=== PATIENT | female | born 1965 | race Caucasian/White ===

== ENCOUNTER 2019-11-08 08:05 | Emergency (ER) | payer OTHER ==
--- OUTSIDE RECORDS SUMMARY | 2019-11-08 08:21 | XMS REPORT ---
:1965 Author Organization eClinicalWorks Care Team Providers Name Role Phone Soheila Ching Provider Role Unavailable Allergies No Known Allergies Problems Problem Type Condition Code Onset Dates Condition Status Problem Acute cystitis with hematuria N30.01 Active Medications No Known Medications Results No Known Results Summary Purpose eClinicalWorks Submission
--- OUTSIDE RECORDS SUMMARY | 2019-11-08 08:21 | XMS REPORT ---
:1965 Author Organization e[employer]Works Care Team Providers Name Role Phone Soheila Ching Provider Role Unavailable Allergies, Adverse Reactions, Alerts Substance Reaction Event Type N.K.D.A. Info Not Available Non Drug Allergy Problems Problem Type Condition Code Onset Dates Condition Status Assessment Acute cystitis with hematuria N30.01 Active Problem Acute cystitis with hematuria N30.01 Active Medications Medication Code Code Instructions Start End Status Dosage System Date Date Metoprolol [facility] 76343932133 50 MG Orally Active 1 capsule Succinate Once a day Vitamin D2 [facility] 85087416873 50 MCG (2000 Active 1 tablet UT) Orally Once a day Xarelto [facility] 01732694517 20 MG Orally Active 1 tablet Once a day with food Liothyronine [facility] 34268160737 25 MCG Orally Active 1 tablet Sodium Once a day on an empty stomach Calcium [facility] [address]-85 150 MG Orally Active as directed Synthroid [facility] 78835156867 175 MCG Orally Active 1 tablet Once a day in the morning on an empty stomach Flecainide [facility] 07764316403 100 MG Orally Active as Acetate directed Cipro [facility] 71876425958 500 MG Orally Oct 04, Oct 09, Active 1 tablet every 12 hrs 2019 2019 Results No Known Results Summary Purpose eClinicalWorks Submission
--- OUTSIDE RECORDS SUMMARY | 2019-11-08 08:21 | XMS REPORT ---
[...] Start End Status Dosage System Date Date Synthroid [facility] 45562285868 175 MCG Orally Active 1 tablet Once a day in the morning on an empty stomach Cipro [facility] 40692376520 500 MG Orally Oct 04, Oct 09, Active 1 tablet every 12 hrs 2019 2019 Calcium [facility] [address]-01 150 MG Orally Active as directed Liothyronine [facility] 76574968959 25 MCG Orally Active 1 tablet Sodium Once a day on an empty stomach Flecainide [facility] 71566102071 100 MG Orally Active as Acetate directed Metoprolol [facility] 24452549467 50 MG Orally Active 1 capsule Succinate Once a day Vitamin D2 [facility] 60470138938 50 MCG (1999 Active 1 tablet UT) Orally Once a day Erythromycin [place] 04765089394 500 MG Orally Oct 09October Active as BID 2019 11, directed 2019 Xarelto ND 13585423345 20 MG Orally Active 1 tablet Once a day with food Results No Known Results Summary Purpose eClinicalWorks Submission
--- OUTSIDE RECORDS SUMMARY | 2019-11-08 08:21 | XMS REPORT ---
:1965 Author Organization eClinicalWorks Care Team Providers Name Role Phone Soheila Ching Provider Role Unavailable Allergies, Adverse Reactions, Alerts Substance Reaction Event Type N.K.D.A. 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 Active classified elsewhere Assessment Acute cystitis with hematuria N30.01 Active Assessment UTI (lower urinary tract infection) N39.0 Active Medications Medication Code Code Instructions Start End Status Dosage System Date Date Liothyronine [facility] 63221429694 25 MCG Orally Active 1 tablet Sodium Once a day on an empty stomach Xarelto [facility] 02944414655 20 MG Orally Active 1 tablet Once a day with food Vitamin D2 [facility] 46045460732 50 MCG (1999 Active 1 tablet UT) Orally Once a day Metoprolol [facility] 36077534269 50 MG Orally Active 1 capsule Succinate Once a day Flecainide [facility] 29546601333 100 MG Orally Active as Acetate directed Calcium [facility] [address]-71 150 MG Orally Active as directed Oxybutynin [facility] 07856809076 5 MG Orally OctoberDecember 26, Active 1 tablet Chloride Twice a day 2019 Synthroid [facility] 79291679723 175 MCG Orally Active 1 tablet Once a day in the morning on an empty stomach Results No Known Results Summary Purpose eClinicalWorks Submission
--- OUTSIDE RECORDS SUMMARY | 2019-11-08 08:21 | XMS REPORT ---
:1965 [facility] Address [address] [place] [address] Dr. Esquivel [address] [place] [id number] Care Team Providers Name Role Phone Unavailable Unavailable Unavailable Payers Payer Name Policy Type Policy Number Effective Date Expiration Date Problems This patient has no known problems. Allergies, Adverse Reactions, Alerts This patient has no known allergies or adverse reactions. Medications This patient has no known medications. Encounters Start End Encounter Admission Attending Care Care Encounter Date/Time Date/Time Type Type Clinicians Facility Department ID 2019-09-18 Outpatient [id number] 07:57:16 2019-02-11 2019-02-11 Outpatient [id number] 12:40:00 12:40:00 2018-07-18 2018-07-18 Outpatient [id number] 14:13:00 14:13:00
[2019-11-08 09:25] LABS: Basophils % 0.9 % (0-1.3); Hematocrit 38.1 % (36.0-45.0); Lymphocytes % 40.1 % (15.3-44.8); MPV 9.2 fL (7.6-11.3); RBC Red Blood Cell Count 4.58 M/uL (3.86-4.86)
[2019-11-08 09:33] LABS: Protime INR 1.65
[2019-11-08 09:41] LABS: Bilirubin Direct 0.1 mg/dL (0-0.2); Bilirubin Total 0.4 mg/dL (0.2-1.0); Potassium 3.8 mmol/L (3.5-5.1); Protein, Total 7.7 g/dL (6.4-8.2)
[2019-11-08 09:48] LABS: Urine Appearance CLOUDY; Urine Bilirubin NEGATIVE (NEG); Urine Blood 3+ (NEG); Urine Color YELLOW; Urine Glucose NEGATIVE (NEG); Urine Protein 2+ (NEG); Urine Urobilinogen 0.2 mg/dL (0.2-1.0)
[2019-11-08 09:54] LABS: Urine Bacteria <20 /HPF (<20); Urine Culture Reflex Order NOT NEEDED; Urine RBC TNTC /HPF (NONE SEEN)
--- NOTE | 2019-11-08 10:01 | RAD REPORT ---
EXAM DESCRIPTION: CTAbdomen Pelvis W Contrast - 11/08/2019 9:52 am CLINICAL HISTORY: Abdominal pain. ABD PAIN COMPARISON: Abdomen Pelvis W Contrast dated 03/05/2019 TECHNIQUE: Biphasic CT imaging of the abdomen and pelvis was performed with 100 ml non-ionic IV cont rast. All CT scans are performed using dose optimization technique as appropriate and may include automated exposure control or mA/KV adjustment according to patient size. FINDINGS: The lung bases are clear.Cholecystectomy clips. Postsurgical changes are present about the stomach. The liver, spleen, pancreas, adrenal glands and right kidney are within normal limits. Mild right hyd ronephrosis and hydroureter is present caused by an 8 mm calculus in the mid left ureter (590 HU). 10 mm cyst is present upper pole left kidney. No bowel obstruction, free air, free fluid or abscess. Appendectomy. No evidence of significant lym phadenopathy. No suspicious bony findings. IMPRESSION: 8 mm calculus mid left ureter resulting in mild left hydronephrosis.
[2019-11-08] MEDS ORDERED: TAMSULOSIN 0.4 MG SR CAP ONE (10:33)
[2019-11-08] MEDS ORDERED: CEFTRIAXONE/SWI 1gm 1 GM/10 ML SYR ONE (10:34)
[2019-11-08] MEDS ORDERED: NA CHLORIDE 0.9% 1,000 ML ONE (10:34)
[2019-11-08] MEDS ORDERED: MAGNESIUM SULFATE 1 gm IVPB 1 GM/100 ML BAG IV ONE (10:34)
[2019-11-08] MEDS ORDERED: KETOROLAC 30 MG/ML INJ ONE (10:34)
--- NOTE | 2019-11-08 11:02 | ER ---
Nurse's Notes [facility] Name: Annika Thompson Age: 54 yrs Sex: Female : 1965 Arrival Date: 11/08/2019 Time: 08:10 Bed 13 Private MD: Diagnosis: Calculus of ureter-left Presentation: 11/07 08:18 Chief complaint: Patient states: abd pain and back pain that has been ongoing since ss July. Pt reports that since the beginning of this week, she is having diarrhea and increased pain after eating. Coronavirus screen: Patient denies fever greater than 100.4F, cough, shortness of breath, or difficulty breathing. Proceed with normal triage process. Ebola Screen: Patient denies exposure to infectious person. Patient denies travel to an Ebola-affected area in the 21 days before illness onset. Initial Sepsis Screen: Does the patient meet any 2 criteria? No. Patient's initial sepsis screen is negative. Does the patient have a suspected source of infection? No. Patient's initial sepsis screen is negative. Risk Assessment: Do you want to hurt yourself or someone else? Patient reports no desire to harm self or others. 08:18 Method Of Arrival: Ambulatory ss 08:18 Acuity: JUSTINE 3 ss Historical: - Allergies: 08:20 Sulfa (Sulfonamide Antibiotics); ss - PMHx: 08:20 Atrial Fib; Hypertension; Tachycardia; Thyroid problem; ss - PSHx: 08:20 Neck fusion; Hysterectomy; Cholecystectomy; Appendectomy; Thyroidectomy; ss - Immunization history:: Adult Immunizations up to date. - Social history:: Smoking status: Patient denies any tobacco usage or history of. Screenin:19 Abuse screen: Denies threats or abuse. Denies injuries from another. Nutritional ph screening: No deficits noted. Tuberculosis screening: No symptoms or risk factors identified. Fall Risk None identified. Assessment: 09:00 General: Appears in no apparent distress. comfortable, well groomed, Behavior is calm, ph cooperative, appropriate for age, Denies fever. Pain: Complains of pain in anterior aspect of left lateral abdomen, left upper quadrant and left lower quadrant. Neuro: Level of Consciousness is awake, alert, obeys commands, Oriented to person, place, time, situation. Respiratory: Airway is patent Respiratory effort is even, unlabored. GI: Abdomen is non-distended, Bowel sounds present X 4 quads. Abd is soft X 4 quads Reports lower abdominal pain, upper abdominal pain, diarrhea, nausea. : Reports pain in left flank(s), upper quadrant(s) lower quadrant(s). Derm: Skin is intact, is healthy with good turgor, Skin is pink, warm \T\ dry. Musculoskeletal: Circulation, motion, and sensation intact. Range of motion: intact in all extremities. 10:00 Reassessment: Patient appears in no apparent distress at this time. Patient and/or ph family updated on plan of care and expected duration. Pain level reassessed. Patient is alert, oriented x 3, equal unlabored respirations, skin warm/dry/pink. 11:07 Reassessment: D/C pending completion of IV medications. ph Vital Signs: 08:18 BP 130 / 88; Pulse 49; Resp 15; Temp 97.6(TE); Pulse Ox 97% on R/A; Weight 89.81 kg; ss Height 5 ft. 11 in. (180.34 cm); Pain 5/10; 09:30 BP 122 / 78; Pulse 48; Resp 18; Pulse Ox 99% on R/A; ph 10:55 BP 118 / 76; Pulse 51; Resp 18; Pulse Ox 100% on R/A; ph 08:18 Body Mass Index 27.62 (89.81 kg, 180.34 cm) ED Course: 08:10 Patient arrived in ED. am2 08:15 Rea Heaton, ESTELA is Primary Nurse. ph 08:17 Jace Alfaro PA is PHCP. cp 08:17 Jorge Forman MD is Attending Physician. cp 08:20 Triage completed. ss 08:20 Arm band placed on right wrist. ss 08:22 Patient has correct armband on for positive identification. Call light in reach. Side ph rails up X 1. Pulse ox on. NIBP on. Door closed. Noise minimized. 08:50 Urine collected: clean catch specimen, [facility] 09:00 Initial lab(s) drawn, by me, sent to lab. Inserted saline lock: 20 gauge in left 3 antecubital area, using aseptic technique. Blood collected. 09:54 CT Abd/Pelvis - IV Contrast Only In Process Unspecified. EDMS 11:40 No provider procedures requiring assistance completed. IV discontinued, intact, ph bleeding controlled, No redness/swelling at site. Pressure dressing applied. Administered Medications: 10:45 Drug: Magnesium Sulfate 1 grams Route: IVPB; Infused Over: 1 hrs; Site: left ph antecubital; 11:40 Follow up: Response: No adverse reaction; IV Status: Completed infusion ph 10:45 Drug: NS 0.9% 1000 ml Route: IV; Rate: 1 bolus; Site: left antecubital; ph 11:40 Follow up: Response: No adverse reaction; IV Status: Completed infusion; IV Intake: ph 1000ml 10:45 Drug: TORadol - Ketorolac 15 mg Route: IVP; Site: left antecubital; ph 11:15 Follow up: Response: No adverse reaction; Pain is decreased ph 10:50 Drug: Flomax 0.4 mg Route: PO; ph 11:40 Follow up: Response: No adverse reaction ph 10:54 Drug: Rocephin - (cefTRIAXone) 1 grams Route: IVPB; Infused Over: 30 mins; Site: left ph antecubital; 11:15 Follow up: Response: No adverse reaction; IV Status: Completed infusion ph Intake: 11:40 IV: 1000ml; Total: 1000ml. ph Outcome: 11:01 Discharge ordered by MD. cp 11:43 Patient left the ED. ph 11:43 Discharged to home ambulatory. ph 11:43 Condition: good 11:43 Discharge instructions given to patient, Instructed on discharge instructions, follow up and referral plans. medication usage, Demonstrated understanding of instructions, follow-up care, medications, Prescriptions given X 4. Signatures: Dispatcher [employer] EDRuthy Montejo RN RN ss Hall, Patricia, RN RN ph Jace Alfaro PA PA cp Moreno, Amanda [facility] May Wylie 3
--- NOTE | 2019-11-08 11:03 | EDPHYS ---
Physician Documentation [facility] Name: Annika Thompson Age: 54 yrs Sex: Female : 1965 Arrival Date: 11/08/2019 Time: 08:10 Bed 13 Private MD: ED Physician Jorge Forman HPI: 11/07 08:57 This 54 yrs old Female presents to ER via Ambulatory with complaints of cp Abdominal Pain, Back Pain. 08:57 The patient presents with abdominal pain that is diffuse. Onset: The symptoms/episode cp began/occurred 3 month(s) ago. 08:57 Associated signs and symptoms: Pertinent positives: diarrhea, hematuria, Pertinent cp negatives: anorexia, chest pain, constipation, fever, vomiting. Historical: - Allergies: 08:20 Sulfa (Sulfonamide Antibiotics); ss - PMHx: 08:20 Atrial Fib; Hypertension; Tachycardia; Thyroid problem; ss - PSHx: 08:20 Neck fusion; Hysterectomy; Cholecystectomy; Appendectomy; Thyroidectomy; ss - Immunization history:: Adult Immunizations up to date. - Social history:: Smoking status: Patient denies any tobacco usage or history of. ROS: 09:00 Constitutional: Negative for body aches, chills, fever, poor PO intake. cp 09:00 Eyes: Negative for injury, pain, redness, and discharge. cp 09:00 ENT: Negative for drainage from ear(s), ear pain, sore throat, difficulty swallowing, difficulty handling secretions. 09:00 Cardiovascular: Negative for chest pain, palpitations. 09:00 Respiratory: Negative for cough, shortness of breath, wheezing. 09:00 Abdomen/GI: Positive for abdominal pain, diarrhea, Negative for vomiting, constipation, anorexia, black/tarry stool, rectal bleeding. 09:00 Back: Positive for pain at rest. 09:00 : Positive for hematuria. 09:00 Skin: Negative for rash. 09:00 Neuro: Negative for dizziness, weakness. 09:00 All other systems are negative. Exam: 09:10 Constitutional: The patient appears in no acute distress, alert, awake, cp non-diaphoretic, non-toxic, well developed, well nourished. 09:10 Head/Face: Normocephalic, atraumatic. cp 09:10 Eyes: Periorbital structures: appear normal, Conjunctiva: normal, no exudate, no injection, Sclera: no appreciated abnormality, Lids and lashes: appear normal, bilaterally. 09:10 ENT: External ear(s): are unremarkable, Nose: is normal, Mouth: is normal, Posterior pharynx: is normal, airway is patent, no erythema, no exudate. 09:10 Chest/axilla: Inspection: normal, Palpation: is normal, no crepitus, no tenderness. 09:10 Cardiovascular: Rate: bradycardic, Edema: is not appreciated, JVD: is not appreciated. 09:10 Respiratory: the patient does not display signs of respiratory distress, Respirations: normal, no use of accessory muscles, no retractions, labored breathing, is not present, Breath sounds: are clear throughout, no decreased breath sounds, no stridor, no wheezing. 09:10 Abdomen/GI: Inspection: abdomen appears normal, Bowel sounds: active, all quadrants, Palpation: soft, in all quadrants, mild abdominal tenderness, in all quadrants, rebound tenderness, is not appreciated, voluntary guarding, is not appreciated, involuntary guarding, is not appreciated. 09:10 Back: pain, that is mild, ROM is normal. 09:10 Skin: no rash present. Vital Signs: 08:18 BP 130 / 88; Pulse 49; Resp 15; Temp 97.6(TE); Pulse Ox 97% on R/A; Weight 89.81 kg; ss Height 5 ft. 11 in. (180.34 cm); Pain 5/10; 09:30 BP 122 / 78; Pulse 48; Resp 18; Pulse Ox 99% on R/A; ph 10:55 BP 118 / 76; Pulse 51; Resp 18; Pulse Ox 100% on R/A; ph 08:18 Body Mass Index 27.62 (89.81 kg, 180.34 cm) ss MDM: 08:23 Patient medically screened. cp 09:00 Differential diagnosis: bowel obstruction, Cholelithiasis, gastritis, non-specific abd cp pain, pancreatitis, Pyelonephritis, Ureterolithiasis, urinary tract infection. 11:00 Data reviewed: vital signs, nurses notes, lab test result(s), radiologic studies, CT cp scan, I have discussed the patient's presentation/case with the attending Emergency Department Physician; and as a result, I will discharge patient. 11:00 Counseling: I had a detailed discussion with the patient and/or guardian regarding: the cp historical points, exam findings, and any diagnostic results supporting the discharge/admit diagnosis, lab results, radiology results, the need for outpatient follow up, a urologist, to return to the emergency department if symptoms worsen or persist or if there are any questions or concerns that arise at home. Response to treatment: the patient's symptoms have mildly improved after treatment, and as a result, I will discharge patient. ED course: VSS. Pain controlled. Patient appears non-toxic. Will discharge to home and patient to f/u with primary urologist. 11/07 08:46 Order name: Basic Metabolic Panel; Complete Time: 09:50 cp 11/07 09:50 Interpretation: Normal except: CL 109; GFR 76. cp 11/07 08:46 Order name: CBC with Diff; Complete Time: 09:35 cp 11/07 09:35 Interpretation: Normal except: MCV 83.2; MCH 26.7. cp 11/07 08:46 Order name: Creatinine for Radiology; Complete Time: 09:50 cp 11/07 08:46 Order name: Hepatic Function; Complete Time: 09:50 cp 11/07 09:50 Interpretation: Normal except: AST 13; GLOB 3.7. cp 11/07 08:46 Order name: Lipase; Complete Time: 09:50 cp 11/07 08:46 Order name: Urine Culture cp 11/07 08:46 Order name: PT-INR; Complete Time: 09:50 cp 11/07 09:50 Interpretation: Abnormal: PT 19.3. cp 11/07 08:46 Order name: Ptt, Activated; Complete Time: 09:50 cp 11/07 08:47 Order name: CT Abd/Pelvis - IV Contrast Only; Complete Time: 10:19 cp 11/07 09:12 Order name: Urinalysis W/Microscopic; Complete Time: 09:58 EDMS 11/07 09:58 Interpretation: Normal except: UBLD 3+; UPROT 2+; URBC TNTC. cp 11/07 08:46 Order name: IV Saline Lock; Complete Time: 09:15 cp 11/07 08:46 Order name: Labs collected and sent; Complete Time: 09:15 cp 11/07 08:46 Order name: Urine Dipstick-Ancillary (obtain specimen); Complete Time: 09:15 cp Administered Medications: 10:45 Drug: Magnesium Sulfate 1 grams Route: IVPB; Infused Over: 1 hrs; Site: left ph antecubital; 11:40 Follow up: Response: No adverse reaction; IV Status: Completed infusion ph 10:45 Drug: NS 0.9% 1000 ml Route: IV; Rate: 1 bolus; Site: left antecubital; ph 11:40 Follow up: Response: No adverse reaction; IV Status: Completed infusion; IV Intake: ph 1000ml 10:45 Drug: TORadol - Ketorolac 15 mg Route: IVP; Site: left antecubital; ph 11:15 Follow up: Response: No adverse reaction; Pain is decreased ph 10:50 Drug: Flomax 0.4 mg Route: PO; ph 11:40 Follow up: Response: No adverse reaction ph 10:54 Drug: Rocephin - (cefTRIAXone) 1 grams Route: IVPB; Infused Over: 30 mins; Site: left ph antecubital; 11:15 Follow up: Response: No adverse reaction; IV Status: Completed infusion ph Disposition: 18:40 Co-signature as Attending Physician, Jorge Forman MD I agree with the assessment and kdr plan of care. Disposition: 11/08/19 11:01 Discharged to Home. Impression: Calculus of ureter - left. - Condition is Stable. - Discharge Instructions: Kidney Stones, Renal Colic. - Prescriptions for Cipro 500 mg Oral Tablet - take 1 tablet by ORAL route every 12 hours for 7 days; 14 tablet. Zofran 4 mg Oral Tablet - take 1 tablet by ORAL route every 12 hours As needed; 20 tablet. Flomax 0.4 mg Oral Capsule, Sust. Release 24 hr - take 1 capsule by ORAL route once daily As needed 1/2 hour following the same meal each day; 7 capsule. Tramadol 50 mg Oral Tablet - take 1 tablet by ORAL route every 8 hours As needed as needed; 20 tablet. - Medication Reconciliation Form, Thank You Letter, Antibiotic Education, Prescription Opioid Use form. - Follow up: Private Physician; When: primary urologist, DR Estes; Reason: Recheck today's complaints. - Problem is new. - Symptoms have improved. Signatures: Dispatcher [employer] EDJorge Ashford MD MD [facility] Ruthy Cantrell RN RN Rea Heaton RN RN ph Page, Jace, PA PA cp Corrections: (The following items were deleted from the chart) 09:26 08:47 UA MICROSCOPIC+U.LAB.BRZ ordered. EDMS EDMS 09:58 09:51 Normal except: UBLD 3+; UPROT 2+. cp cp 11:43 11:01 11/08/2019 11:01 Discharged to Home. Impression: Calculus of ureter - left. ph Condition is Stable. Forms are Medication Reconciliation Form, Thank You Letter, Antibiotic Education, Prescription Opioid Use. Follow up: Private Physician; When: primary urologist, DR Estes; Reason: Recheck today's complaints. Problem is new. Symptoms have improved. cp
[2019-11-08 12:07] VITALS: BP 118/76; O2SAT 100
== END 2019-11-08 11:43 | disposition home or self-care (01) ==
LOC: ER 08:05
DX: N20.1 Calculus of ureter (principal); I10 Essential (primary) hypertension; Z88.2 Allergy status to sulfonamides
CPT/HCPCS: 96365; 87088; 85025; 81001; 80048; 36415; 85610; 80076; 85730; 83690; 74177; 96375; 99284; Q9967; J3475; J0696; J7030; 87086

== ENCOUNTER → 2023-11-07 | Emergency (ER) | payer OTHER ==
--- OUTSIDE RECORDS SUMMARY | 2023-11-07 14:42 | XMS REPORT | Continuity of Care Document ---
Author Name Unknown Address [address] [facility] [address] [place] [address] [facility] thconnect Address [address] [facility] [address] [place] [address] Care Team Providers Care Research Chief Engineer Name Role Phone Jose Luong Attending Clinician Tony Jade Attending Clinician UnavailBAKARI Reid Attending Clinician Unavailable Frederick Uriarte Attending Clinician Unavailable Georgie Plaza DO Attending Clinician [phone] [address] Attending Clinician UnavailTony Grace Admitting Clinician Frederick Almeida Admitting Clinician Unavailable Payers Payer Name Policy Type Policy Number Effective Date Expirati on Date Source [facility] [id number] 2022 00:00:00 Problems Condition Name Condition Details Condition Category Status Onset Date Resolution Date Last Treatment Date Treating Clinician Comments Source Acute cystitis with hematuria Acute cystitis with hematuria Problem Active [facility] No known active problems No known active problems Disease [facility] Bladder disorders in diseases classified elsewhere Bladder disorders in diseases classified elsewhere Problem Active [facility] Allergies, Adverse Reactions, Alerts Allergy Name Allergy Type Status Severity Reaction(s) Onset Date Inactive Date Treating Clinician Comments Source Sulfa Dyne Propensi ty to adverse reaction s Active Unknown - See comments 02-13 00:00: 00 [facility] SULFA DYNE DRUG Active Unknown-Cmnt 02-13 00:00: 00 [facility] Sulfa (Sulfona mide Antibiot ics) DA Active U HIVES 11-18 00:00: 00 [facility] Sulfa (Sulfona mide Antibiot ics) DA Active U 11-18 00:00: 00 [facility] Social History Social Habit Start Date Stop Date Quantity Comments Source Exposure to SARS-CoV-2 (event) Not sure [facility] Sex Assigned At 1965 00:00:00 1965 00:00:00 [facility] Smoking Status Start Date Stop Date Source Unknown if ever smoked [facility] Medications Ordered Medication Name Filled Medication Name Start Date Stop Date Current Medication? Ordering Clinician Indication Dosage Frequency Signature (SIG) Comments Components Source FENTanyl PF (SUBLIMAZE (PF)) injection 50 mcg 02-13 21:45: 00 02-13 20:34 :00 No 50ug 50 mcg, Slow IV Push, ONCE, 1 dose, 02/13/21 at 1645, Routine [facility] aspirin chewable tablet 324 mg 02-13 18:30: 00 02-13 17:34 :00 No 324mg 324 mg, Oral, ONCE, 1 dose, 02/13/21 at 1330, Routine [facility] nitroglycer in (NITROSTAT) sublingual tablet 0.4 mg 02-13 18:11: 38 Yes .4mg 0.4 mg, Sublingual , Q5MIN PRN, 3 doses, Starting 02/13/21 at 1311, Until Discontinu ed, ZACKERY, Chest pain [facility] Bactrim DS Bactrim DS 12-16 00:00: 00 12-17 00:00 :00 No Soheila Ching 1 tablet [facility] No known medications No Un jordan [facility] Vital Signs Vital Name Observation Time Observation Value Comments S ource Systolic blood pressure 2021-02-13 19:30:00 123 mm[Hg] [facility] Diastolic blood pressure 2021-02-13 19:30:00 92 mm[Hg] [facility] Heart rate 2021-02-13 19:30:00 54 /min [facility] Respiratory rate 2021-02-13 19:30:00 16 /min [facility] Oxygen saturation in Arterial blood by Pulse oximetry 2021-02-13 19:30:00 99 /min [facility] Body temperature 2021-02-13 17:18:00 36.72 Dilma [facility] Body weight 2021-02-13 17:18:00 93.895 kg [facility] Procedures Procedure Date / Time Performed Performing Clinicia n Source [id number] 2021-02-14 00:00:00 [facility] [id number] 2021-02-14 00:00:00 [facility] [id number] 2021-02-14 00:00:00 [facility] [id number] 2021-02-14 00:00:00 [facility] URINALYSIS 2021-02-13 18:37:00 Georgie Plaza [facility] COVID-19 (ID NOW RAPID TESTING) 2021-02-13 18:15:00 Georgie Plaza [facility] XR CHEST 1 VW 2021-02-13 17:36:45 Georgie Plaza [facility] LIPASE 2021-02-13 17:31:00 Georgie Plaza Un [facility] TROPONIN I 2021-02-13 17:31:00 Georgie Plaza [facility] HEPATIC FUNCTION PANEL ([id number]) (ALB,T.PRO,BILI T,BU/BC,ALT,AST,ALK PHOS) 2021-02-13 17:31:00 Georgie Plaza [facility] BASIC METABOLIC PANEL (NA, K, CL, CO2, GLUCOSE, BUN, CREATININE, CA) 2021-02-13 17:31:00 Georgie Plaza [facility] CBC WITH DIFF 2021-02-13 17:31:00 Georgie Plaza [facility] Encounters Start Date/Time End Date/Time Encounter Type Admission Type Attending [facility] Care Department Encounter ID Source 2023-07-10 09:11:01 [facility] [id number] [facility] 2023-06-07 08:44:00 [facility] [id number] [facility] 2022-06-07 11:24:12 Outpatient [facility] [id number] [facility] 2021-09-08 11:09:22 [facility] [id number] [facility] 2019-11-19 08:00:00 Inpatient Jose Luong [facility] [id number] [facility] 2019-09-18 07:57:16 Outpatient MHSE [id number] [facility] 2023-10-23 10:45:48 2023-10-23 10:45:48 Outpatient SFA S[facility] [id number] [facility] 2023-09-11 10:19:42 2023-09-11 10:19:42 Outpatient SFA SFA [id number] [facility] 2023-09-04 10:19:52 2023-09-04 10:19:52 Outpatient SFA SFA [id number] [facility] 2023-08-24 08:39:19 2023-08-24 08:39:19 Outpatient SFA SFA [id number] [facility] 2023-05-25 10:34:23 2023-05-25 10:34:23 Outpatient SFA SFA [id number] [facility] 2023-05-08 08:59:11 2023-05-08 08:59:11 Outpatient SFA SFA [id number] [facility] 2023-04-26 17:18:56 2023-04-26 17:18:56 Outpatient SFA SFA [id number] [facility] 2022-10-25 10:13:00 2022-10-26 10:20:00 [facility] [id number] [facility] 2022-08-09 15:20:00 2022-08-09 15:20:00 Outpatient BAKARI HANEY [facility] [id number] [facility] 2021-02-14 13:47:00 2021-02-16 12:35:00 In[facility] [id number] [facility] 2021-02-13 12:21:00 2021-02-13 15:51:00 Emergency Georgie Plaza [facility] [id number] [facility] 2021-02-13 12:21:00 2021-02-13 12:21:00 Emergency GEORGIE BRITTON [facility] ERT [id number] [facility] 2019-12-06 10:41:00 2019-12-06 10:41:00 [facility] [id number] [facility] 2019-11-11 15:16:00 2019-11-11 15:16:00 [facility] [id number] [facility] 2019-10-28 10:30:00 2019-10-28 10:30:00 [facility] [id number] [facility] 2019-10-21 10:57:00 2019-10-21 10:57:00 [facility] [id number] [facility] 2019-10-09 11:00:00 2019-10-09 11:00:00 [facility] [id number] [facility] 2019-10-04 11:00:00 2019-10-04 11:00:00 [facility] [id number] [facility] 2019-02-11 12:40:00 2019-02-11 12:40:00 Outpatient SE SE [id number] [facility] 2018-07-18 14:13:00 2018-07-18 14:13:00 Outpatient SE SE [id number] [facility] Results Test Description Test Time Test Comments Results Result Co mments Source [id number] 11:03:23* Test Item Value Reference Range Interpretation Comme [facility] FERRITIN (test code = 2075) 9 NG/ML 13-200 L UNLESS OTHERWISE INDICATED, ALL TESTING PERFORMED AT [facility] [address] [place] [address] 14710 CHECKERING MACHINE ADJUSTER: KATERINA MORTON M.D. CLIA NUMBER [id number] [place] [id number] VITAMIN [id number] 07:05:26* Test Item Value Reference Range Interpretation Comme [facility] VITAMIN B-12 (test code = 2840) 336 PG/ML 200-950 FOLIC [id number] 07:05:26* Test Item Value Reference Range Interpretation Comme [facility] FOLIC ACID (test code = 2695) 2.7 UG/L SEE BELOW L INTERPRETI VE RANGES DEFICIENCY . . . . . . . . . . . . . . . UG/L <4.0 POSSIBLE DEFICIENCY. . . . . . . . . . . UG/L 4.0-5.9 SUFFICIENT . . . . . . . . . . . . . . . UG/L >=6.0 VITAMIN D, 25 [id number] 05:47:52* Test Item Value Reference Range Interpretation Comme [facility] VITAMIN D, 25 OH (test code = 4958) 26 NG/ML SEE BELOW L EFFECTIVE 04/2023, PLEASE NOTE NEW METHODOLOGY IS ELECTROCHEMILUMINESCENCE BINDING ASSAY. NOTE: 25-HYDROXYVITAMIN D ASSAY INCLUDES 25-HYDROXYVITAMIN D2 AND D3. INTERPRETIVE RANGES PEDIATRIC (<17 YEARS) . . . . . . . . . . . NG/ML 20-100ADULT: INSUFFICIENT . . . . . . . . . . . . . . NG/ML <20 SUBOPTIMAL . . . . . . . . . . . . . . . NG/ML 20-29 OPTIMAL . . . . . . . . . . . . . . . . . NG/ML 30-100 COMPREHENSIVE METABOLIC [id number] 05:08:17* Test Item Value Reference Range Interpretation Comme nts GLUCOSE (test code = 7) 86 MG/DL 70-99 BUN (test code = 2207) 12 MG/DL 6-20 CREATININE (test code = 221) 0.72 MG/DL 0.60-1.30 eGFR (2020 CKD-EPI) (test code = 96785) 99 ML/MIN/1.73 >60 CALC BUN/CREAT (test code = 2235) 17 RATIO 6-28 SODIUM (test code = 223) 139 MEQ/L 133-146 POTASSIUM (test code = 2228) 4.3 MEQ/L 3.5-5.4 CHLORIDE (test code = 2214) 104 MEQ/L 95-107 CARBON DIOXIDE (test code = 2206) 27 MEQ/L 19-31 CALCIUM (test code = 2208) 9.7 MG/DL 8.5-10.5 PROTEIN, TOTAL (test code = 222) 7.2 G/DL 6.1-8.3 ALBUMIN (test code = 2201) 4.6 G/DL 3.5-5.2 CALC GLOBULIN (test code = 2240) 2.6 G/DL 1.9-3.7 CALC A/G RATIO (test code = 2234) 1.8 RATIO 1.0-2.6 BILIRUBIN, TOTAL (test code = 2206) 0.4 MG/DL See_Comment [Automated me ssage] The system which generated this result transmitted reference range: <=1.2. The reference range was not used to interpret this result as normal/abnormal. ALKALINE PHOSPHATASE (test code = 4) 95 U/L 40-133 AST (test code = 2218) 24 U/L 9-40 ALT (test code = 2219) 22 U/L 5-40 CBC W/AUTO DIFF WITH [id number] 01:34:23* Test Item Value Reference Range Interpretation Comme nts WBC (test code = 1001) 5.1 K/UL 3.5-11.0 RBC (test code = 1002) 4.66 M/UL 3.80-5.40 HEMOGLOBIN (test code = 1003) 11.3 G/DL 11.5-15.5 L HEMATOCRIT (test code = 1004) 36.3 % 34.0-45.0 MCV (test code = 1005) 77.9 fL 80.0-99.0 L MCH (test code = 1006) 24.2 PG 25.0-33.0 L MCHC (test code = 1007) 31.1 G/DL 31.0-36.0 RDW (test code = 1038) 16.5 % 11.5-15.0 H NEUTROPHILS (test code = 1008) 53.5 % LYMPHOCYTES (test code = 1010) 34.8 % MONOCYTES (test code = 1011) 8.0 % EOSINOPHILS (test code = 1012) 2.5 % BASOPHILS (test code = 1013) 1.0 % IMMATURE GRANULOCYTES (test code = 1036) 0.2 % NUCLEATED RBCS (test code = 1065) 0.0 /100 WBC'S See_Comment [Automated messa ge] The system which generated this result transmitted reference range: 0.0. The reference range was not used to interpret this result as normal/abnormal. PLATELET COUNT (test code = 1015) 262 K/UL 130-400 ABSOLUTE NEUTROPHILS (test code = 1066) 2.73 K/UL 1.50-7.50 ABSOLUTE LYMPHOCYTES (test code = 1067) 1.78 K/UL 1.00-4.00 ABSOLUTE MONOCYTES (test code = 1068) 0.41 K/UL 0.20-1.00 ABSOLUTE EOSINOPHILS (test code = 1040) 0.13 K/UL 0.00-0.50 ABSOLUTE BASOPHILS (test code = 1069) 0.05 K/UL 0.00-0.20 ABS IMMATURE GRANULOCYTES (test code = 1020) 0.01 K/UL 0.00-0.10 ABS NUCLEATED RBCS (test code = 77637) 0.00 K/UL 0.00-0.11 TSH, THIRD [id number] 05:39:53* Test Item Value Reference Range Interpretation Comme nts TSH, THIRD GENERATION (test code = 2821) 0.050 UIU/ML 0.400-4.100 L [facility] has impo rtant pathology staff changes effective 10/12/2022. New pathology staff will provide uninterrupted, excellent patient care and clinical consultation. See URL: [email or web address]. UNLESS OTHERWISE INDICATED, ALL TESTING PERFORMED AT [facility] [address] [place] [address] CHECKERING MACHINE ADJUSTER: KATERINA MORTON M.D. [facility] NUMBER [id number] [place]. [id number] HEMOGLOBIN [id number] 04:54:34* Test Item Value Reference Range Interpretation Comme nts HEMOGLOBIN A1c (test code = 93188) 5.8 % 4.2-5.6 H CITIZEN OF [place] [employer] GUIDELINES FOR HGB A1C: PREDIABETES/INCREASED RISK . . . . . . . 5.7-6.4% DIAGNOSIS OF DIABETES . . . . . . . . . >=6.5% WITH CONFIRMATION OR APPROPRIATE SYMPTOMS NOTE: ASSAY MAY BE AFFECTED BY HEMOGLOBINOPATHIES (SICKLE CELL ANEMIA, S-C DISEASE, OTHERS) OR ARTIFICIALLY LOWERED BY DECREASED RED CELL SURVIVAL (HEMOLYTIC ANEMIAS, BLOOD LOSS, ETC.). CONSIDER ALTERNATE TESTING OR LABORATORY CONSULTATION. IRON, [id number] 03:47:38* Test Item Value Reference Range Interpretation Comme nts IRON, SERUM (test code = 2222) 22 UG/DL 37-145 L CBC W/AUTO DIFF WITH [id number] 03:44:13* Test Item Value Reference Range Interpretation Comme nts WBC (test code = 1001) 5.7 K/UL 3.5-11.0 RBC (test code = 1002) 5.18 M/UL 3.80-5.40 HEMOGLOBIN (test code = 1003) 11.4 G/DL 11.5-15.5 L HEMATOCRIT (test code = 1004) 38.6 % 34.0-45.0 MCV (test code = 1005) 74.5 fL 80.0-99.0 L MCH (test code = 1006) 22.0 PG 25.0-33.0 L MCHC (test code = 1007) 29.5 G/DL 31.0-36.0 L RDW (test code = 1038) 16.1 % 11.5-15.0 H NEUTROPHILS (test code = 1008) 62.2 % LYMPHOCYTES (test code = 1010) 25.8 % MONOCYTES (test code = 1011) 9.1 % EOSINOPHILS (test code = 1012) 1.8 % BASOPHILS (test code = 1013) 0.9 % IMMATURE GRANULOCYTES (test code = 1036) 0.2 % NUCLEATED RBCS (test code = 1065) 0.0 /100 WBC'S See_Comment [Automated messa ge] The system which generated this result transmitted reference range: 0.0. The reference range was not used to interpret this result as normal/abnormal. PLATELET COUNT (test code = 1015) 304 K/UL 130-400 ABSOLUTE NEUTROPHILS (test code = 1066) 3.55 K/UL 1.50-7.50 ABSOLUTE LYMPHOCYTES (test code = 1067) 1.47 K/UL 1.00-4.00 ABSOLUTE MONOCYTES (test code = 1068) 0.52 K/UL 0.20-1.00 ABSOLUTE EOSINOPHILS (test code = 1040) 0.10 K/UL 0.00-0.50 ABSOLUTE BASOPHILS (test code = 1069) 0.05 K/UL 0.00-0.20 ABS IMMATURE GRANULOCYTES (test code = 1020) 0.01 K/UL 0.00-0.10 ABS NUCLEATED RBCS (test code = 47827) 0.00 K/UL 0.00-0.11 BASIC METABOLIC [id number] 05:13:00* Test Item Value Reference Range Interpretation Comme nts SODIUM (test code = NA) 139 MMOL/L 137-145 N POTASSIUM (test code = K) 4.3 MMOL/L 3.5-5.1 N CHLORIDE (test code = CL) 111 MMOL/L 98-107 H CARBON DIOXIDE (test code = CO2) 24 MMOL/L 22-30 N ANION GAP (test code = GAP) 8 MMOL/L 14-24 L GLUCOSE (test code = GLU) 131 MG/DL 74-106 H BLOOD UREA NITROGEN (test code = BUN) 14 MG/DL 7-17 N GLOMERULAR FILTRATION RATE (test code = GFR) > 60 The Glomerular Filtration Rate is a calculated parameterbased on serum Creatinine, patient age and sex. GFR valuesless than 60 mL/min/1.73 square meters are indicative ofChronic Kidney Disease. Values less than 15 mL/min/1.73square meters indicate Kidney failure. The calculation forGFR is based on the CKD-EPI (2020) calculation. This formulais race indifferent and is the recommended formula for GFRby the National Kidney Foundation for Adults.The GFR will not calculate if the sex is unknown or if thepatient's age is <18 years. CREATININE (test code = CREAT) 0.50 MG/DL 0.52-1.04 L CALCIUM (test code = CA) 8.5 MG/DL 8.4-10.2 N CBC W/AUTO [id number] 04:44:00* Test Item Value Reference Range Interpretation Comme nts WHITE BLOOD CELL (test code = WBC) 6.3 K/MM3 3.8-9.8 N RED BLOOD CELL (test code = RBC) 4.04 M/MM3 3.58-4.97 N HEMOGLOBIN (test code = HGB) 9.0 G/DL 11.2-14.9 L HEMATOCRIT (test code = HCT) 30.6 % 33.2-43.5 L MEAN CELL VOLUME (test code = MCV) 76 fL 80.7-99.1 L MEAN CELL HGB (test code = MCH) 22.3 pg 27.0-34.1 L MEAN CELL HGB CONCETRATION (test code = MCHC) 29.4 % 32.2-35.7 L RED CELL DISTRIBUTION WIDTH (test code = RDW) 15.8 % 12.1-15.2 H PLATELET COUNT (test code = PLT) 204 K/MM3 129-368 N MEAN PLATELET VOLUME (test c ode = MPV) 10.7 fl 7.4-10.4 H NEUTROPHIL % (test code = NT%) 89.5 % 43-75 H IMMATURE GRANULOCYTE % (test code = IG%) 0.5 % 0.0-2.0 N LYMPHOCYTE % (test code = LY%) 7.9 % 14-44 L MONOCYTE % (test code = MO%) 1.9 % 4-13 L EOSINOPHIL % (test code = EO%) 0.0 % 0-6 N BASOPHIL % (test code = BA%) 0.2 % 0-2 N NUCLEATED RBC % (test code = NRBC%) 0.0 % 0-1.0 N NEUTROPHIL # (test code = NT#) 5.65 K/mm3 2.0-7.6 N IMMATURE GRANULOCYTE # (test code = IG#) 0.03 x10 3/uL 0-0.03 N LYMPHOCYTE # (test code = LY#) 0.50 K/mm3 1.0-3.8 L MONOCYTE # (test code = MO#) 0.12 K/mm3 0.1-0.8 N EOSINOPHIL # (test code = EO#) 0.00 K/mm3 0.0-0.2 N BASOPHIL # (test code = BA#) 0.01 K/mm3 0.0-0.2 N NUCLEATED RBC # (test code = NRBC#) 0.00 K/mm3 0.0-0.1 N [id number] 16:43:00* Test Item Value Reference Range Interpretation Comme nts ACT-ISTAT (test code = ACTI) 299 SEC 74-137 H [id number] 16:01:00* Test Item Value Reference Range Interpretation Comme nts ACT-ISTAT (test code = ACTI) 305 SEC 74-137 H [id number] 15:37:00* Test Item Value Reference Range Interpretation Comme nts ACT-ISTAT (test code = ACTI) 323 SEC 74-137 H BASIC METABOLIC [id number] 12:09:00* Test Item Value Reference Range Interpretation Comme nts SODIUM (test code = NA) 141 MMOL/L 137-145 N POTASSIUM (test code = K) 3.4 MMOL/L 3.5-5.1 L CHLORIDE (test code = CL) 109 MMOL/L 98-107 H CARBON DIOXIDE (test code = CO2) 25 MMOL/L 22-30 N ANION GAP (test code = GAP) 10 MMOL/L 14-24 L GLUCOSE (test code = GLU) 92 MG/DL 74-106 N BLOOD UREA NITROGEN (test code = BUN) 19 MG/DL 7-17 H GLOMERULAR FILTRATION RATE (test code = GFR) > 60 The Glomerular Filtration Rate is a calculated parameterbased on serum Creatinine, patient age and sex. GFR valuesless than 60 mL/min/1.73 square meters are indicative ofChronic Kidney Disease. Values less than 15 mL/min/1.73square meters indicate Kidney failure. The calculation forGFR is based on the CKD-EPI (202) calculation. This formulais race indifferent and is the recommended formula for GFRby the National Kidney Foundation for Adults.The GFR will not calculate if the sex is unknown or if thepatient's age is <18 years. CREATININE (test code = CREAT) 0.60 MG/DL 0.52-1.04 N CALCIUM (test code = CA) 8.9 MG/DL 8.4-10.2 N [id number] 12:09:00* Test Item Value Reference Range Interpretation Comme nts MAGNESIUM (test code = MAG) 2.0 MG/DL 1.6-2.3 N PROTHROMBIN [id number] 11:46:00* Test Item Value Reference Range Interpretation Comme nts PROTHROMBIN TIME PATIENT (test code = PTP) 11.3 SECONDS 9.4-12.7 N INTERNATIONAL NORMAL RATIO (test code = INR) 1.0 0.86-1.14 N The INR is to be used only for monitoring oral anticoagulanttherap y. INDICATION INR VALUE -------1. Prophylaxis, deep venous thrombosis, including high risk surgery. 2.0 - 3.0 2. Prophylaxis, deep venous thrombosis, hip surgery, treatment for deep venous thrombosis or pulmonary prevention of systemic embolism in patients with valvular heart disease, atrial fibrillation, tissue heart valve, or acute myocardial infarction. 2.0 - 3.0 3. Mechanical prosthesis heart valves, recurrent systemic embolism. 3.0 - 4.5 PTT [id number] 11:46:00* Test Item Value Reference Range Interpretation Comme nts PTT ACTIVATED (test code = APTT) 31.3 SECONDS 26.2-35.4 N CBC W/AUTO [id number] 11:37:00* Test Item Value Reference Range Interpretation Comme nts WHITE BLOOD CELL (test code = WBC) 5.3 K/MM3 3.8-9.8 N RED BLOOD CELL (test code = RBC) 4.47 M/MM3 3.58-4.97 N HEMOGLOBIN (test code = HGB) 10.5 G/DL 11.2-14.9 L HEMATOCRIT (test code = HCT) 33.7 % 33.2-43.5 N MEAN CELL VOLUME (test code = MCV) 75 fL 80.7-99.1 L MEAN CELL HGB (test code = MCH) 23.5 pg 27.0-34.1 L MEAN CELL HGB CONCETRATION (test code = MCHC) 31.2 % 32.2-35.7 L RED CELL DISTRIBUTION WIDTH (test code = RDW) 15.8 % 12.1-15.2 H PLATELET COUNT (test code = PLT) 247 K/MM3 129-368 N MEAN PLATELET VOLUME (test c ode = MPV) 9.9 fl 7.4-10.4 N NEUTROPHIL % (test code = NT%) 46.4 % 43-75 N IMMATURE GRANULOCYTE % (test code = IG%) 0.2 % 0.0-2.0 N LYMPHOCYTE % (test code = LY%) 39.9 % 14-44 N MONOCYTE % (test code = MO%) 9.1 % 4-13 N EOSINOPHIL % (test code = EO%) 3.4 % 0-6 N BASOPHIL % (test code = BA%) 1.0 % 0-2 N NUCLEATED RBC % (test code = NRBC%) 0.0 % 0-1.0 N NEUTROPHIL # (test code = NT#) 2.44 K/mm3 2.0-7.6 N IMMATURE GRANULOCYTE # (test code = IG#) 0.01 x10 3/uL 0-0.03 N LYMPHOCYTE # (test code = LY#) 2.10 K/mm3 1.0-3.8 N MONOCYTE # (test code = MO#) 0.48 K/mm3 0.1-0.8 N EOSINOPHIL # (test code = EO#) 0.18 K/mm3 0.0-0.2 N BASOPHIL # (test code = BA#) 0.05 K/mm3 0.0-0.2 N NUCLEATED RBC # (test code = NRBC#) 0.00 K/mm3 0.0-0.1 N TSH, THIRD [id number] 05:32:42* Test Item Value Reference Range Interpretation Comme nts TSH, THIRD GENERATION (test code = 2821) 0.019 UIU/ML 0.400-4.100 L UNLESS OTHERWISE INDICATED, ALL TESTING PERFORMED ATCLINICAL PATHOLOGY [employer] [employer] [address] [place] [address]24 CHECKERING MACHINE ADJUSTER: VIDA GIRON M.D. CLIA NUMBER [id number] [place]. [id number] HEMOGLOBIN [id number] 04:03:45* Test Item Value Reference Range Interpretation Comme nts HEMOGLOBIN A1c (test code = 45909) 6.0 % 4.2-5.6 H LIPID [id number] 03:45:17* Test Item Value Reference Range Interpretation Comme nts CHOLESTEROL (test code = 2210) 111 MG/DL <200 TRIGLYCERIDES (test code = 2232) 97 MG/DL <150 HDL CHOLESTEROL (test code = 2220) 48 MG/DL >39 CALC LDL CHOL (test code = 7) 45 MG/DL <100 NOTE: CALCULATED LDL IS BASED ON ANN-STUART METHOD WHICHINCLUDES ADJUSTABLE TRIGLYCERIDE:VLDL CHOLESTEROL RATIO.THIS FACTOR VARIES BY MEASURED TRIGLYCERIDE AND NON-HDLCHOLESTEROL CONCENTRATIONS WITH INCREASED CALCULATED LDL SEENIN HIGHER TRIGLYCERIDE OR LOWER NON-HDL SPECIMENS. FOR MOREINFORMATION, SEE CLIENT ANNOUNCEMENT AT [email or web address] RISK RATIO LDL/HDL (test code = 2238) 0.94 RATIO <3.22 COMPREHENSIVE METABOLIC [id number] 03:45:17* Test Item Value Reference Range Interpretation Comme nts GLUCOSE (test code = 2217) 83 MG/DL 70-99 BUN (test code = 220) 19 MG/DL 6-20 CREATININE (test code = 2214) 0.97 MG/DL 0.60-1.30 eGFR (2020 CKD-EPI) (test code = 04563) 69 ML/MIN/1.73 >60 CALC BUN/CREAT (test code = 2235) 20 RATIO 6-28 SODIUM (test code = 223) 144 MEQ/L 133-146 POTASSIUM (test code = 2228) 4.7 MEQ/L 3.5-5.4 CHLORIDE (test code = 2215) 105 MEQ/L 95-107 CARBON DIOXIDE (test code = 2206) 27 MEQ/L 19-31 CALCIUM (test code = 2209) 9.8 MG/DL 8.5-10.5 PROTEIN, TOTAL (test code = 2228) 7.6 G/DL 6.1-8.3 ALBUMIN (test code = 2200) 5.0 G/DL 3.5-5.2 CALC GLOBULIN (test code = 2240) 2.6 G/DL 1.9-3.7 CALC A/G RATIO (test code = 2233) 1.9 RATIO 1.0-2.6 BILIRUBIN, TOTAL (test code = 7) 0.3 MG/DL See_Comment [Automated ct ssage] The system which generated this result transmitted reference range: <=1.2. The reference range was not used to interpret this result as normal/abnormal. ALKALINE PHOSPHATASE (test code = 4) 82 U/L 40-133 AST (test code = 2218) 23 U/L 9-40 ALT (test code = 2219) 17 U/L 5-40 CBC W/AUTO DIFF WITH [id number] 02:25:00* Test Item Value Reference Range Interpretation Comme nts WBC (test code = 1001) 6.1 K/UL 3.5-11.0 RBC (test code = 1002) 4.50 M/UL 3.80-5.40 HEMOGLOBIN (test code = 1003) 10.7 G/DL 11.5-15.5 L HEMATOCRIT (test code = 1004) 34.8 % 34.0-45.0 MCV (test code = 1005) 77.3 fL 80.0-99.0 L MCH (test code = 1006) 23.8 PG 25.0-33.0 L MCHC (test code = 1007) 30.7 G/DL 31.0-36.0 L RDW (test code = 1038) 15.4 % 11.5-15.0 H NEUTROPHILS (test code = 1008) 53.3 % LYMPHOCYTES (test code = 1010) 31.5 % MONOCYTES (test code = 1011) 11.9 % EOSINOPHILS (test code = 1012) 2.1 % BASOPHILS (test code = 1013) 1.0 % IMMATURE GRANULOCYTES (test code = 1036) 0.2 % NUCLEATED RBCS (test code = 1065) 0.0 /100 WBC'S See_Comment [Automated messa ge] The system which generated this result transmitted reference range: 0.0. The reference range was not used to interpret this result as normal/abnormal. PLATELET COUNT (test code = 1015) 260 K/UL 130-400 ABSOLUTE NEUTROPHILS (test code = 1066) 3.26 K/UL 1.50-7.50 ABSOLUTE LYMPHOCYTES (test code = 1067) 1.93 K/UL 1.00-4.00 ABSOLUTE MONOCYTES (test code = 1068) 0.73 K/UL 0.20-1.00 ABSOLUTE EOSINOPHILS (test code = 1040) 0.13 K/UL 0.00-0.50 ABSOLUTE BASOPHILS (test code = 1069) 0.06 K/UL 0.00-0.20 ABS IMMATURE GRANULOCYTES (test code = 1020) 0.01 K/UL 0.00-0.10 ABS NUCLEATED RBCS (test code = 77919) 0.00 K/UL 0.00-0.11 BASIC METABOLIC [id number] 04:41:00* Test Item Value Reference Range Interpretation Comme nts SODIUM (test code = NA) 139 MMOL/L 137-145 N POTASSIUM (test code = K) 3.6 MMOL/L 3.5-5.1 N CHLORIDE (test code = CL) 104 MMOL/L 98-107 N CARBON DIOXIDE (test code = CO2) 27 MMOL/L 22-30 N ANION GAP (test code = GAP) 12 MMOL/L 14-24 L GLUCOSE (test code = GLU) 89 MG/DL 74-106 BLOOD UREA NITROGEN (test code = BUN) 13 MG/DL 7-17 N GLOMERULAR FILTRATION RATE (test code = GFR) > 60 Reporting units: ml/min/1.73 m2 (Modified MDRD Formula)Reference Range: > or = 60 ml/min/1.73 m2 CREATININE (test code = CREAT) 0.60 MG/DL 0.52-1.04 N CALCIUM (test code = CA) 8.9 MG/DL 8.4-10.2 N CBC W/AUTO [id number] 04:28:00* Test Item Value Reference Range Interpretation Comme nts WHITE BLOOD CELL (test code = WBC) 7.4 K/MM3 3.8-9.8 N RED BLOOD CELL (test code = RBC) 4.34 M/MM3 3.58-4.97 N HEMOGLOBIN (test code = HGB) 11.0 G/DL 11.2-14.9 L HEMATOCRIT (test code = HCT) 35.5 % 33.2-43.5 MEAN CELL VOLUME (test code = MCV) 82 fL 80.7-99.1 N MEAN CELL HGB (test code = MCH) 25.3 pg 27.0-34.1 L MEAN CELL HGB CONCETRATION (test code = MCHC) 31.0 % 32.2-35.7 L RED CELL DISTRIBUTION WIDTH (test code = RDW) 15.9 % 12.1-15.2 H PLATELET COUNT (test code = PLT) 214 K/MM3 129-368 MEAN PLATELET VOLUME (test c ode = MPV) 10.8 fl 7.4-10.4 H NEUTROPHIL % (test code = NT%) 49.8 % 43-75 N IMMATURE GRANULOCYTE % (test code = IG%) 0.3 % 0.0-2.0 N LYMPHOCYTE % (test code = LY%) 40.1 % 14-44 N MONOCYTE % (test code = MO%) 9.0 % 4-13 N EOSINOPHIL % (test code = EO%) 0.4 % 0-6 N BASOPHIL % (test code = BA%) 0.4 % 0-2 N NUCLEATED RBC % (test code = NRBC%) 0.0 % 0-1.0 N NEUTROPHIL # (test code = NT#) 3.70 K/mm3 2.0-7.6 N IMMATURE GRANULOCYTE # (test code = IG#) 0.02 x10 3/uL 0-0.03 N LYMPHOCYTE # (test code = LY#) 2.98 K/mm3 1.0-3.8 N MONOCYTE # (test code = MO#) 0.67 K/mm3 0.1-0.8 N EOSINOPHIL # (test code = EO#) 0.03 K/mm3 0.0-0.2 N BASOPHIL # (test code = BA#) 0.03 K/mm3 0.0-0.2 N NUCLEATED RBC # (test code = NRBC#) 0.00 K/mm3 0.0-0.1 N GLUCOSE BEDSIDE [id number] 03:52:00* Test Item Value Reference Range Interpretation Comme nts GLUCOSE BEDSIDE TESTING (bhupendra t code = GLUBED) 113 MG/DL 60-99 H GLUCOSE BEDSIDE [id number] 21:05:00* Test Item Value Reference Range Interpretation Comme nts GLUCOSE BEDSIDE TESTING (bhupendra t code = GLUBED) 87 MG/DL 60-99 N T4 [id number] 17:47:00* Test Item Value Reference Range Interpretation Comme nts T4 FREE (test code = T4F) 1.9 NG/DL 0.78-2.19 N NO RED TUBE Comments to Ordnance Officer: please add to last night lab (TSH)TSH REFLEX TO [id number] 17:47:00* Test Item Value Reference Range Interpretation Comme nts TSH REFLEX TO FT4 (test code = TSHREFLEX) < 0.015 MIU/L 0.65-4.68 L Please be aware that bias results for TSH may occur forpatient who are taking Biotin supplements. NO RED TUBE Comments to Ordnance Officer: please add to last night lab (TSH)T4 FREE 2021-02-14 17:07:00* Test Item Value Reference Range Interpretation Comme nts T4 FREE (test code = T4F) NG/DL 0.78-2.19 NO RED TUBE Comments to Ordnance Officer: please add to last night lab (TSH)TSH REFLEX TO [id number] 17:07:00* Test Item Value Reference Range Interpretation Comme nts TSH REFLEX TO FT4 (test code = TSHREFLEX) < 0.015 MIU/L 0.65-4.68 L Please be aware that bias results for TSH may occur forpatient who are taking Biotin supplements. NO RED TUBE Comments to Ordnance Officer: please add to last night lab (TSH)- XR CHEST 2 [id number] 15:47:00 [facility] : 1965 Sex: F Patient Name: MARIA M THOMPSON Unit No: [id number] EXAMS: CPT CODE: [id number] XR CHEST 2 V 55253 Location code: B2 HISTORY: chest pain Comparison to CTA chest 02/13/2021 TECHNIQUE: Frontal and lateral views of the chest were obtained. FINDINGS: The cardiomediastinal silhouette is unremarkable. The trachea is midline. The lungs are clear. There is no effusion or pneumothorax. The bones are intact. Postsurgi jeffrey changes lower cervical spine. IMPRESSION: No acute pulmonary process. at 1547 Reported and signed by: Abebe Chen M.D. CC: Hans Christiansen MD; Ana Rosa Guerreor MD Technologist: Heriberto Plascencia, RT(R) Transcrpt Date/Tm/Trnsp: 02/14/2021 (1547) LoRK5 Orig Print D/T: S: 02/14/2021 (4371) [facility] NAME: MARIA M THOMPSON [address] [address] PHYS:REVA. - [place] [address] : 1965 AGE: 55 SEX: F LOC: Z.I14 A PHONE #: [phone] EXAM DATE: 02/14/2021 STATUS: ADM IN FAX #: [phone] RADIOLOGY NO: PAGE 1 Signed ReportDRUGS OF ABUSE SCREEN [id number] 14:05:00* Test Item Value Reference Range Interpretation Comme nts UR COCAINE (test code = COCAU) NEGATIVE NEGATIVE Cut off Value: 3 00 ng/mL UR CANNABINOIDS (THC) (test code = CANU) NEGATIVE NEGATIVE Cut off Value : 50 ng/mL UR AMPHETAMINE (test code = AMPHU) NEGATIVE NEGATIVE Cut off Value: 1 000 ng/mL UR BARBITURATE QUAL (test code = BARBQLU) NEGATIVE NEGATIVE Cut off Va lue: 200 ng/mL UR BENZODIAZEPINE (test code = BENZU) NEGATIVE NEGATIVE Cut off Value: 2 00 ng/mL UR OPIATES QUAL (test code = OPIAQLU) POSITIVE NEGATIVE A This is a Screen ing test and the Results are to be used for medical purposes only (No confirmation for Positive results)Cut off Value: 300 ng/mL UR PHENCYCLIDINE (PCP) (test code = PHENCU) NEGATIVE NEGATIVE Cut off Isabel ue: 25 ng/mL DRUGS OF ABUSE SCREEN [id number] 13:11:00* Test Item Value Reference Range Interpretation Comme nts UR COCAINE (test code = COCAU) NEGATIVE NEGATIVE Cut off Value: 3 00 ng/mL UR CANNABINOIDS (THC) (test code = CANU) NEGATIVE NEGATIVE Cut off Value : 50 ng/mL UR AMPHETAMINE (test code = AMPHU) NEGATIVE NEGATIVE Cut off Value: 1 000 ng/mL UR BARBITURATE QUAL (test code = BARBQLU) NEGATIVE NEGATIVE Cut off Value: 2 00 ng/mL UR BENZODIAZEPINE (test code = BENZU) NEGATIVE NEGATIVE Cut off Value: 2 00 ng/mL UR OPIATES QUAL (test code = OPIAQLU) NEGATIVE UR PHENCYCLIDINE (PCP) (test code = PHENCU) NEGATIVE NEGATIVE Cut off Isabel ue: 25 ng/mL GLUCOSE BEDSIDE [id number] 13:02:00* Test Item Value Reference Range Interpretation Comme nts GLUCOSE BEDSIDE TESTING (bhupendra t code = GLUBED) 107 MG/DL 60-99 H UA RFLX MICR CULT IF [id number] 12:51:00* Test Item Value Reference Range Interpretation Comme nts UA COLOR (test code = COLU) YELLOW YELLOW UA APPEARANCE (test code = APPU) CLEAR CLEAR UA GLUCOSE DIPSTICK (test code = DGLUU) NORMAL MG/DL NORMAL UA BILIRUBIN DIPSTICK (test code = BILU) NEGATIVE MG/DL NEGATIVE UA KETONE DIPSTICK (test code = KETU) 15 MG/DL NEGATIVE A UA SPECIFIC GRAVITY (test code = SGU) 1.030 1.003-1.030 N UA BLOOD DIPSTICK (test code = TORREY) 10 Vic/mm3 NEGATIVE A UA PH DIPSTICK (test code = SUSY) 5.0 5.0-9.0 N UA PROTEIN DIPSTICK (test code = PROU) 15 MG/DL NEGATIVE UA UROBILINIOGEN DIPSTICK (test code = URO) NORMAL MG/DL NORMAL UA NITRITE DIPSTICK (test code = GEORGE) NEGATIVE NEGATIVE UA LEUKOCYTE ESTERASE DIPSTICK (test code = LEUU) NEGATIVE /mm3 NEGATIVE UA CULTURE NEEDED? (test code = UACULT) NO, WBC<10 Criteria Culture Chk Indication for culture: Suprapubic PainUA [id number] 12:51:00* Test Item Value Reference Range Interpretation Comme nts UA RBC (test code = RBCU) 0-3 RBC/HPF 0-3 UA WBC (test code = XWBCU) 0-3 WBC/HPF 0-5 UA EPITHELIAL CELLS (test co de = EPIU) FEW EPI/HPF FEW UA BACTERIA (test code = XBACU) FEW NONE Indication for culture: Suprapubic PainUA RFLX MICR CULT IF [id number] 12:39:00* Test Item Value Reference Range Interpretation Comme nts UA COLOR (test code = COLU) YELLOW YELLOW UA APPEARANCE (test code = APPU) CLEAR CLEAR UA GLUCOSE DIPSTICK (test co de = DGLUU) NORMAL MG/DL NORMAL UA BILIRUBIN DIPSTICK (test code = BILU) NEGATIVE MG/DL NEGATIVE UA KETONE DIPSTICK (test cod e = KETU) 15 MG/DL NEGATIVE A UA SPECIFIC GRAVITY (test co de = SGU) 1.030 1.003-1.030 N UA BLOOD DIPSTICK (test code = TORREY) 10 Vic/mm3 NEGATIVE A UA PH DIPSTICK (test code = SUSY) 5.0 5.0-9.0 N UA PROTEIN DIPSTICK (test co de = PROU) 15 MG/DL NEGATIVE UA UROBILINIOGEN DIPSTICK (test code = URO) NORMAL MG/DL NORMAL UA NITRITE DIPSTICK (test co de = GEORGE) NEGATIVE NEGATIVE UA LEUKOCYTE ESTERASE DIPSTI CK (test code = LEUU) NEGATIVE /mm3 NEGATIVE UA CULTURE NEEDED? (test cod e = UACULT) Criteria Culture Chk Indication for culture: Suprapubic PainUA [id number] 12:39:00* Test Item Value Reference Range Interpretation Comme nts UA RBC (test code = RBCU) RBC/HPF 0-3 UA WBC (test code = XWBCU) WBC/HPF 0-5 UA EPITHELIAL CELLS (test co de = EPIU) EPI/HPF FEW UA BACTERIA (test code = XBACU) NONE Indication for culture: Suprapubic PainUA RFLX MICR CULT IF [id number] 12:39:00* Test Item Value Reference Range Interpretation Comme nts UA COLOR (test code = COLU) YELLOW YELLOW UA APPEARANCE (test code = APPU) CLEAR CLEAR UA GLUCOSE DIPSTICK (test co de = DGLUU) NORMAL MG/DL NORMAL UA BILIRUBIN DIPSTICK (test code = BILU) NEGATIVE MG/DL NEGATIVE UA KETONE DIPSTICK (test cod e = KETU) 15 MG/DL NEGATIVE A UA SPECIFIC GRAVITY (test co de = SGU) 1.030 1.003-1.030 N UA BLOOD DIPSTICK (test code = TORREY) 10 Vic/mm3 NEGATIVE A UA PH DIPSTICK (test code = SUSY) 5.0 5.0-9.0 N UA PROTEIN DIPSTICK (test co de = PROU) 15 MG/DL NEGATIVE UA UROBILINIOGEN DIPSTICK (test code = URO) NORMAL MG/DL NORMAL UA NITRITE DIPSTICK (test co de = GEORGE) NEGATIVE NEGATIVE UA LEUKOCYTE ESTERASE DIPSTI CK (test code = LEUU) NEGATIVE /mm3 NEGATIVE UA CULTURE NEEDED? (test cod e = UACULT) Criteria Culture Chk Indication for culture: Suprapubic PainUA [id number] 12:39:00* Test Item Value Reference Range Interpretation Comme nts UA RBC (test code = RBCU) RBC/HPF 0-3 UA WBC (test code = XWBCU) WBC/HPF 0-5 UA EPITHELIAL CELLS (test co de = EPIU) EPI/HPF FEW UA BACTERIA (test code = XBACU) NONE Indication for culture: Suprapubic [id number] 09:24:00* Test Item Value Reference Range Interpretation Comme nts TROPONIN-I (test code = TROPI) 13.000 NG/ML 0.012-0.033 CALLED TO Bethanie RAYGOZA& READBACK ON 02/14/21 AT 0924 BY Rima Washington GLUCOSE BEDSIDE [id number] 07:47:00* Test Item Value Reference Range Interpretation Comme nts GLUCOSE BEDSIDE TESTING (bhupendra t code = GLUBED) 114 MG/DL 60-99 H GLYCOSYLATED HEMOGLOBIN [id number] 05:40:00* Test Item Value Reference Range Interpretation Comme nts GLYCOSYLATED HEMOGLOBIN (HA1C) (test code = GLYHGB) 5.4 % 4.8-5.9 N Any condition th at shortens erythocyte survival or decreasesmean erythrocyte age (e.g., recovery from acute blood loss,hemolytic anemia) will falsely lower HGBA1c resultsregardless of the method used. HGBA1c results from patientswith HbSS, HbCC, and HbSc must be interpreted with cautiongiven the pathological processes, including anemia,increased red cell turnover, transfusion requirements, thatadversely impact HGBA1c as a marker of long-term glycemiccontrol. Alternative forms of testing such as fructosamineshould be considered for these patients. MEAN BLOOD GLUCOSE (test code = MBG) 108 MG/DL 70-110 N BASIC METABOLIC [id number] 05:03:00* Test Item Value Reference Range Interpretation Comme nts SODIUM (test code = NA) 138 MMOL/L 137-145 N POTASSIUM (test code = K) 3.9 MMOL/L 3.5-5.1 N CHLORIDE (test code = CL) 102 MMOL/L 98-107 N CARBON DIOXIDE (test code = CO2) 23 MMOL/L 22-30 N ANION GAP (test code = GAP) 17 MMOL/L 14-24 N GLUCOSE (test code = GLU) 136 MG/DL 74-106 H BLOOD UREA NITROGEN (test code = BUN) 15 MG/DL 7-17 N GLOMERULAR FILTRATION RATE (test code = GFR) > 60 Reporting units: ml/min/1.73 m2 (Modified MDRD Formula)Reference Range: > or = 60 ml/min/1.73 m2 CREATININE (test code = CREAT) 0.60 MG/DL 0.52-1.04 N CALCIUM (test code = CA) 9.6 MG/DL 8.4-10.2 N LIPID PROFILE (CORONARY RISK)2021-02-14 05:03:00* Test Item Value Reference Range Interpretation Comme nts TRIGLYCERIDES (test code = TRIG) 131 MG/DL TRIGLYCERIDES REFERENCE RANGE:Normal: <150 mg/dLBorderline High: 150-199 mg/dLHigh: 200-499 mg/dLVery High: >=500 mg/dL CHOLESTEROL (test code = CHOL) 203 MG/DL <200 HDL CHOLESTEROL (test code = HDL) 62 MG/DL 40-59 H LIPOPROTEIN LDL (test code = LDL) 96 MG/DL 0-99 N OPTIMAL......... <100 mg/dLNEAR OPTIMAL/ABOVE OPTIMAL.........100-12 9 mg/dL BORDERLINE HIGH.........130-159 mg/dL HIGH.........160-189 mg/dL VERY HIGH.........>/= 190 mg/dL [id number] 05:03:00* Test Item Value Reference Range Interpretation Comme nts TROPONIN-I (test code = TROPI) 8.620 NG/ML 0.012-0.033 CALLED TO YASSINE Herbert & READBACK ON 02/14/21 AT 0457 BY Kylee Hargrove BASIC METABOLIC [id number] 04:54:00* Test Item Value Reference Range Interpretation Comme nts SODIUM (test code = NA) 138 MMOL/L 137-145 N POTASSIUM (test code = K) 3.9 MMOL/L 3.5-5.1 N CHLORIDE (test code = CL) 102 MMOL/L 98-107 N CARBON DIOXIDE (test code = CO2) 23 MMOL/L 22-30 N ANION GAP (test code = GAP) 17 MMOL/L 14-24 N GLUCOSE (test code = GLU) 136 MG/DL 74-106 H BLOOD UREA NITROGEN (test code = BUN) 15 MG/DL 7-17 N GLOMERULAR FILTRATION RATE (test code = GFR) > 60 Reporting units: ml/min/1.73 m2 (Modified MDRD Formula)Reference Range: > or = 60 ml/min/1.73 m2 CREATININE (test code = CREAT) 0.60 MG/DL 0.52-1.04 N CALCIUM (test code = CA) 9.6 MG/DL 8.4-10.2 N LIPID PROFILE (CORONARY RISK)2021-02-14 04:54:00* Test Item Value Reference Range Interpretation Comme [facility] TRIGLYCERIDES (test code = TRIG) 131 MG/DL TRIGLYCERIDES REFERENCE RANGE:Normal: <150 mg/dLBorderline High: 150-199 mg/dLHigh: 200-499 mg/dLVery High: >=500 mg/dL CHOLESTEROL (test code = CHOL) 203 MG/DL <200 HDL CHOLESTEROL (test code = HDL) 62 MG/DL 40-59 H LIPOPROTEIN LDL (test code = LDL) 96 MG/DL 0-99 N OPTIMAL......... <100 mg/dLNEAR OPTIMAL/ABOVE OPTIMAL.........100-12 9 mg/dL BORDERLINE HIGH.........130-159 mg/dL HIGH.........160-189 mg/dL VERY HIGH.........>/= 190 mg/dL [id number] 04:54:00* Test Item Value Reference Range Interpretation Comme nts TROPONIN-I (test code = TROPI) NG/ML 0.0-0.045 CBC W/AUTO [id number] 04:44:00* Test Item Value Reference Range Interpretation Comme nts WHITE BLOOD CELL (test code = WBC) 11.0 K/MM3 3.8-9.8 H RED BLOOD CELL (test code = RBC) 4.77 M/MM3 3.58-4.97 N HEMOGLOBIN (test code = HGB) 12.0 G/DL 11.2-14.9 N HEMATOCRIT (test code = HCT) 39.9 % 33.2-43.5 N MEAN CELL VOLUME (test code = MCV) 84 fL 80.7-99.1 N MEAN CELL HGB (test code = MCH) 25.2 pg 27.0-34.1 L MEAN CELL HGB CONCETRATION (test code = MCHC) 30.1 % 32.2-35.7 L RED CELL DISTRIBUTION WIDTH (test code = RDW) 15.5 % 12.1-15.2 H PLATELET COUNT (test code = PLT) 299 K/MM3 129-368 MEAN PLATELET VOLUME (test c ode = MPV) 11.4 fl 7.4-10.4 H NEUTROPHIL % (test code = NT%) 76.4 % 43-75 H IMMATURE GRANULOCYTE % (test code = IG%) 0.4 % 0.0-2.0 N LYMPHOCYTE % (test code = LY%) 18.6 % 14-44 N MONOCYTE % (test code = MO%) 4.2 % 4-13 N EOSINOPHIL % (test code = EO%) 0.0 % 0-6 N BASOPHIL % (test code = BA%) 0.4 % 0-2 N NUCLEATED RBC % (test code = NRBC%) 0.0 % 0-1.0 N NEUTROPHIL # (test code = NT#) 8.39 K/mm3 2.0-7.6 H IMMATURE GRANULOCYTE # (test code = IG#) 0.04 x10 3/uL 0-0.03 H LYMPHOCYTE # (test code = LY#) 2.04 K/mm3 1.0-3.8 N MONOCYTE # (test code = MO#) 0.46 K/mm3 0.1-0.8 N EOSINOPHIL # (test code = EO#) 0.00 K/mm3 0.0-0.2 N BASOPHIL # (test code = BA#) 0.04 K/mm3 0.0-0.2 N NUCLEATED RBC # (test code = NRBC#) 0.00 K/mm3 0.0-0.1 N BASIC METABOLIC [id number] 04:44:00* Test Item Value Reference Range Interpretation Comme nts SODIUM (test code = NA) 138 MMOL/L 137-145 N POTASSIUM (test code = K) 3.9 MMOL/L 3.5-5.1 N CHLORIDE (test code = CL) 102 MMOL/L 98-107 N CARBON DIOXIDE (test code = CO2) 23 MMOL/L 22-30 N ANION GAP (test code = GAP) 17 MMOL/L 14-24 N GLUCOSE (test code = GLU) 136 MG/DL 74-106 H BLOOD UREA NITROGEN (test code = BUN) 15 MG/DL 7-17 N GLOMERULAR FILTRATION RATE (test code = GFR) > 60 Reporting units: ml/min/1.73 m2 (Modified MDRD Formula)Reference Range: > or = 60 ml/min/1.73 m2 CREATININE (test code = CREAT) 0.60 MG/DL 0.52-1.04 N CALCIUM (test code = CA) 9.6 MG/DL 8.4-10.2 N LIPID PROFILE (CORONARY RISK)2021-02-14 04:44:00* Test Item Value Reference Range Interpretation Comme nts TRIGLYCERIDES (test code = TRIG) 131 MG/DL TRIGLYCERIDES REFERENCE RANGE:Normal: <150 mg/dLBorderline High: 150-199 mg/dLHigh: 200-499 mg/dLVery High: >=500 mg/dL CHOLESTEROL (test code = CHOL) 203 MG/DL <200 HDL CHOLESTEROL (test code = HDL) 62 MG/DL 40-59 H LIPOPROTEIN LDL (test code = LDL) MG/DL 0-99 [id number] 04:44:00* Test Item Value Reference Range Interpretation Comme nts TROPONIN-I (test code = TROPI) NG/ML 0.0-0.045 [id number] 02:08:00* Test Item Value Reference Range Interpretation Comme nts TROPONIN-I (test code = TROPI) 9.690 NG/ML 0.012-0.033 CALLED TO YASSINE Cornejo & READBACK ON 02/14/21 AT 0205 BY Kylee Hargrove - CT ABD PELVIS [id number] 23:40:00 [facility] : 1965 Sex: F Patient Name: MARIA M THOMPSON Unit No: [id number] EXAMS: CPT CODE: [id number] CT ABD PELVIS W/CONT 76163 AFTER HOURS SERVICE ON: 02/13/2021 11:[address] Scan of the Abdomen and Pelvis With Contrast Location Code M12 History: chest pain upper abdomen Technique: Axial and reconstructed coronal scans were performed on a helical scanner post IV contrast. One or more of the following dose reduction techniques were used: Automated exposure control, adjustment of the mA and/or kV according to patient size, and/or utilization of iterative reconstruction technique. Findings: LIVER: No significant findings. GALLBLADDER/BILIARY: Cholecystectomy. PANCREAS: No significant findings. SPLEEN: No significant findings. ADRENALS: No significant findings. KIDNEYS: No hydronephrosis. There are two too small to characterize hypodense renal cystic lesions in the kidneys measuring under 1 cm. BLADDER: No significant findings. GASTROINTESTINAL: Postsurgical changes noted in the stomach. Small bowel loops and colon arewithin normal limits. The appendix is not visualized. OTHER: Uterus is surgically absent. IMPRESSION: No acute findings in the abdomen or pelvis. at 2340 Reported and signed by: Aureliano Cosme M.D. CC: Hans Christiansen MD; Bhavik Summers MD; Ana Rosa Guerrero MD Technologist: Wagner Becerra, RT(R) CTDI: DLP: Trnscrpt: 02/13/2021 (4528) [id number] [facility] NAME: MARIA M THOMPSON [address] [address] PHYS: [place] [address] : 1965 AGE: 55 SEX: F LOC: Z.I14 A PHONE #: [phone] EXAM DATE: 02/13/2021 STATUS: ADM IN FAX #: [phone] RAD #: D/C DT PAGE 1 Signed Report Patient Name: MARIA M THOMPSON Unit No: [id number] EXAMS: CPT CODE: [id number] CT ABD PELVIS W/CONT 96677 <Continued> Orig Print D/T: S: 02/13/2021 (2211) [facility] NAME: MARIA M THOMPSON [id number] [address] PHYS: [place] [address] : 1965 AGE: 55 SEX: F LOC:Z.I14 A PHONE #: [phone] EXAM DATE: 02/13/2021 STATUS: ADM IN FAX #: [phone] RAD #: D/C DT PAGE 2 Signed Report- CTA CHEST 2021-02-13 23:37:00 [facility] : 1965 Sex: F Patient Name: MARIA M THOMPSON Unit No: [id number] EXAMS: CPT CODE: [id number] CTA CHEST 12148 AFTER HOURS SERVICE ON: 02/13/2021 11:[address] Scan of the Chest With Contrast Location Code M12 History: chest pain Technique: Scans were performed on a helical scanner post IV contrast. Coronal and sagittal reconstructions were performed. 3-D post processing was not performed. One or more of the following dose reduction techniques were used: Automated exposure control, adjustment of the mA and/or kV according to patient size, and/or utilization of iterative reconstruction technique. FINDINGS: Study is motion degraded which limits evaluation of the smaller vessels. There are no filling defects in the pulmonary arteries to suggest a pulmonary embolism. No large central or saddle embolus is seen in the pulmonary trunk. No aortic aneurysm or dissection seen. No cardiomegaly. No pericardial effusion. Thereis mild interstitial edema seen in the central perihilar regions. There is no consolidation, pleural effusion or pneumothorax. There is also bilateral perihilar peribronchial thickening, right greater than left. IMPRESSION: No evidence of pulmonary embolism, aortic aneurysm or dissection. Mild interstitial edema. Mild reactive or viral-like bilateral peribronchial thickening. at 2337 Reported and signed by: Aureliano preston M.D. CC: Hans Christiansen MD; Bhavik Summers MD; Ana Rosa Guerrero MD Technologist: Wagner Becerra, RT(R) CTDI: DLP: Trnscrpt: 02/13/2021 (2337) [email or web address] [facility] NAME: MARIA M THOMPSON [id number] [address] PHYS: [place] [address] : 1965 AGE: 55 SEX: F LOC: Z.I14 A PHONE #: [phone] EXAM DATE: 02/13/2021 STATUS: ADM IN FAX #: [phone] RAD #: D/C DT PAGE 1 Signed Report Patient Name: MARIA M THOMPSON Unit No: [id number] EXAMS: CPT CODE: [id number] CTA CHEST 32504 <Continued> Orig Print D/T: S: 02/13/2021 (2340) [facility] NAME: MARIA M THOMPSON [address] PHYS: [place] [address] : 1965 AGE: 55 SEX: F LOC: Z.I14 A PHONE #: [phone] EXAM DATE: 02/13/2021 STATUS: ADM IN FAX #: [phone] RAD #: D/C DT PAGE 2 Signed ReportTHYROID STIMULATING [id number] 22:53:00* Test Item Value Reference Range Interpretation Comme nts THYROID STIMULATING HORMONE (test code = TSH) < 0.015 MIU/L 0.465-4.68 L Please be aware that bias results for TSH may occur forpatient who are taking Biotin supplements. [id number] 22:52:00* Test Item Value Reference Range Interpretation Comme nts AMYLASE (test code = LAKEISHA) 46 UNITS/L 30-110 N [id number] 22:52:00* Test Item Value Reference Range Interpretation Comme nts LIPASE (test code = LIP) 61 UNITS/L 23-300 N [id number] 22:46:00* Test Item Value Reference Range Interpretation Comme nts TROPONIN-I (test code = TROPI) 7.940 NG/ML 0.012-0.033 CALLED TO YASSINE Herbert& READBACK ON 02/13/21 AT 2246 BY Mariela Chapin COMPREHENSIVE METABOLIC [id number] 19:39:00* Test Item Value Reference Range Interpretation Comme nts SODIUM (test code = NA) 140 MMOL/L 137-145 N POTASSIUM (test code = K) 3.9 MMOL/L 3.5-5.1 N CHLORIDE (test code = CL) 103 MMOL/L 98-107 N CARBON DIOXIDE (test code = CO2) 28 MMOL/L 22-30 N GLUCOSE (test code = GLU) 100 MG/DL 74-106 N BLOOD UREA NITROGEN (test code = BUN) 16 MG/DL 7-17 N GLOMERULAR FILTRATION RATE (test code = GFR) > 60 Reporting unit s: ml/min/1.73 m2 (Modified MDRD Formula)Reference Range: > or = 60 ml/min/1.73 m2 CREATININE (test code = CREAT) 0.60 MG/DL 0.52-1.04 N TOTAL PROTEIN (test code = PROT) 8.4 G/DL 6.3-8.2 H Ortho Clinical D iagnostic has made us aware of newinformation regarding the potential interference ofEltrombopag (a bone marrow stimulant used to treatthrombocytonmenia and aplastic anemia) with specific assayson the Vitros 5600 of which Total Protein is one of thoseassays performed in our lab.Interference testing performed at [facility] determined thatEltrombopag does interfere with Vitros Total Protein asfollowsEltrombopag Interference for Vitros Product Total Protein: Eltrombopag Max Observed Avg. BiasConcentration Concentration Concentration 2.5 mg/dl 6.0 g/dl +0.41 +0.34 3.5 mg/dl 6.0 g/dl +0.50 +0.45 5 mg/dl 6.0 g/dl +0.73 +0.65 2.5 mg/dl 8.0 g/dl +0.44 +0.41 3.5 mg/dl 8.0 g/dl +0.55 +0.52 5 mg/dl 8.0 g/dl +0.86 +0.77 ALBUMIN (test code = ALB) 4.9 G/DL 3.5-5.0 N CALCIUM (test code = CA) 9.7 MG/DL 8.4-10.2 N BILIRUBIN TOTAL (test code = BILT) 0.7 MG/DL 0.2-1.3 N Eltrombopag Inte rference for Vitros Product TBil, BuBc: Assay Eltrombopag Analyte/ Max Observed Avg. Bias Concentration Concentration Concentration TBil 7mg/dl TBil/ 1.2mg/dl +0.23mg.dl +0.20mg/dlBuBc 3.5mg/dl Bu/0.8mg/dl +0.25mg/dl +0.24mg/dlBuBc 7 mg/dl Bu/14.2mg/dl +0.38mg/dl +0.25mg/dlBuBc 5mg/dl Bc/0mg/dl +0.25mg/dl +0.15mg/dlBuBc 3.5mg/dl Bc/2.8mg/dl +0.25mg/dl +0.23mg/dl SGOT/AST (test code = AST) 33 UNITS/L 14-36 N SGPT/ALT (test code = ALT) 21 UNITS/L <35 ALKALINE PHOSPHATASE (test code = ALKP) 81 UNITS/L 38-126 N LIPOPROTEIN LDL [id number] 19:39:00* Test Item Value Reference Range Interpretation Comme nts LIPOPROTEIN LDL DIRECT (test code = LDLDIR) 91 mg/dL 100-129 L Refe rence Interval: mg/dL mmol/L --Optimal <100 <2.6Near/above optimal 100-129 2.6-3.3Borderline High 130-159 3.4-4.1High 160-189 4.1-4.9Very High >=190 >=4.9========= This LDL result is a direct measurement.========= [id number] 19:39:00* Test Item Value Reference Range Interpretation Comme nts TROPONIN-I (test code = TROPI) 0.901 NG/ML 0.012-0.033 CALLED TO ESTELLA Rivera& READBACK ON 02/13/21 AT 1915 BY Mariela Chapin [id number] 19:18:13* Test Item Value Reference Range Interpretation Comme nts APPEARANCE (test code = 6967480747) Hazy Clear A COLOR (test code = 2216762757) Yellow Yellow PH (test code = 6666738904) 4.8-8.0 SP GRAVITY (test code = 3338873336) 1.003-1.030 H GLU U QUAL (test code = 0224304469) Normal Normal BLOOD (test code = 7137941986) Negative Negative KETONES (test code = 3899668759) Negative Negative PROTEIN (test code = 2887-8) Negative Negative UROBILIN (test code = 7287308062) Normal Normal BILIRUBIN (test code = 3860658765) Negative Negative NITRITE (test code = 4195483934) Negative Negative LEUK JESSENIA (test code = 5835254448) Negative Negative RBC/HPF (test code = 6513029190) See_Comment H [Automated messa ge] The system which generated this result transmitted reference range: 0 - 3 HPF. The reference range was not used to interpret this result as normal/abnormal. WBC/HPF (test code = 9664033035) See_Comment [Automated messa ge] The system which generated this result transmitted reference range: 0 - 5 HPF. The reference range was not used to interpret this result as normal/abnormal. BACTERIA (test code = 8854017215) Negative Negative MUCOUS (test code = 7930428760) Moderate Negative LPF A SQ EPITH (test code = 4881255250) HPF CA OXALATE (test code = 2909451911) See_Comment H [Automated messa ge] The system which generated this result transmitted reference range: <=1 HPF. The reference range was not used to interpret this result as normal/abnormal. HYAL CAST (test code = 9324967904) See_Comment [Automated [employer] ge] The system which generated this result transmitted reference range: <=2 LPF. The reference range was not used to interpret this result as normal/abnormal. Lab Interpretation (test code = 79822-8) Abnormal [facility] [id number] 19:15:00* Test Item Value Reference Range Interpretation Comme nts GLUCOSE BEDSIDE TESTING (bhupendra t code = GLUBED) 86 MG/DL 60-99 N COMPREHENSIVE METABOLIC [id number] 19:15:00* Test Item Value Reference Range Interpretation Comme nts SODIUM (test code = NA) 140 MMOL/L 137-145 N POTASSIUM (test code = K) 3.9 MMOL/L 3.5-5.1 N CHLORIDE (test code = CL) 103 MMOL/L 98-107 N CARBON DIOXIDE (test code = CO2) 28 MMOL/L 22-30 N GLUCOSE (test code = GLU) 100 MG/DL 74-106 N BLOOD UREA NITROGEN (test code = BUN) 16 MG/DL 7-17 N GLOMERULAR FILTRATION RATE (test code = GFR) > 60 Reporting unit s: ml/min/1.73 m2 (Modified MDRD Formula)Reference Range: > or = 60 ml/min/1.73 m2 CREATININE (test code = CREAT) 0.60 MG/DL 0.52-1.04 N TOTAL PROTEIN (test code = PROT) 8.4 G/DL 6.3-8.2 [facility] Clinical D iagnostic has made us aware of newinformation regarding the potential interference ofEltrombopag (a bone marrow stimulant used to treatthrombocytonmenia and aplastic anemia) with specific assayson the [facility] LABSs 5600 of which Total Protein is one of thoseassays performed in our lab.Interference testing performed at [facility] determined thatEltrombopag does interfere with Vitros Total Protein asfollowsEltrombopag Interference for Vitros Product Total Protein: Eltrombopag Max Observed Avg. BiasConcentration Concentration Concentration 2.5 mg/dl 6.0 g/dl +0.41 +0.34 3.5 mg/dl 6.0 g/dl +0.50 +0.45 5 mg/dl 6.0 g/dl +0.73 +0.65 2.5 mg/dl 8.0 g/dl +0.44 +0.41 3.5 mg/dl 8.0 g/dl +0.55 +0.52 5 mg/dl 8.0 g/dl +0.86 +0.77 ALBUMIN (test code = ALB) 4.9 G/DL 3.5-5.0 N CALCIUM (test code = CA) 9.7 MG/DL 8.4-10.2 N BILIRUBIN TOTAL (test code = BILT) 0.7 MG/DL 0.2-1.3 N Eltrombopag Inte rference for Vitros Product TBil, BuBc: Assay Eltrombopag Analyte/ Max Observed Avg. Bias Concentration Concentration Concentration TBil 7mg/dl TBil/ 1.2mg/dl +0.23mg.dl +0.20mg/dlBuBc 3.5mg/dl Bu/0.8mg/dl +0.25mg/dl +0.24mg/dlBuBc 7 mg/dl Bu/14.2mg/dl +0.38mg/dl +0.25mg/dlBuBc 5mg/dl Bc/0mg/dl +0.25mg/dl +0.15mg/dlBuBc 3.5mg/dl Bc/2.8mg/dl +0.25mg/dl +0.23mg/dl SGOT/AST (test code = AST) 33 UNITS/L 14-36 N SGPT/ALT (test code = ALT) 21 UNITS/L <35 ALKALINE PHOSPHATASE (test code = ALKP) 81 UNITS/L 38-126 N LIPOPROTEIN LDL [id number] 19:15:00* Test Item Value Reference Range Interpretation Comme nts LIPOPROTEIN LDL DIRECT (test code = LDLDIR) mg/dL 100-129 [id number] 19:15:00* Test Item Value Reference Range Interpretation Comme nts TROPONIN-I (test code = TROPI) 0.901 NG/ML 0.012-0.033 CALLED TO ESTELLA Rivera& READBACK ON 02/13/21 AT 1915 BY Mariela Chapin COMPREHENSIVE METABOLIC [id number] 18:45:00* Test Item Value Reference Range Interpretation Comme nts SODIUM (test code = NA) 140 MMOL/L 137-145 N POTASSIUM (test code = K) 3.9 MMOL/L 3.5-5.1 N CHLORIDE (test code = CL) 103 MMOL/L 98-107 N CARBON DIOXIDE (test code = CO2) 28 MMOL/L 22-30 N GLUCOSE (test code = GLU) 100 MG/DL 74-106 N BLOOD UREA NITROGEN (test code = BUN) 16 MG/DL 7-17 N GLOMERULAR FILTRATION RATE (test code = GFR) > 60 Reporting unit s: ml/min/1.73 m2 (Modified MDRD Formula)Reference Range: > or = 60 ml/min/1.73 m2 CREATININE (test code = CREAT) 0.60 MG/DL 0.52-1.04 N TOTAL PROTEIN (test code = PROT) 8.4 G/DL 6.3-8.2 H [facility] Clinical D iagnostic has made us aware of newinformation regarding the potential interference ofEltrombopag (a bone marrow stimulant used to treatthrombocytonmenia and aplastic anemia) with specific assayson the [employer] 5600 of which Total Protein is one of thoseassays performed in our lab.Interference testing performed at [facility] determined thatEltrombopag does interfere with Vitros Total Protein asfollowsEltrombopag Interference for Vitros Product Total Protein: Eltrombopag Max Observed Avg. BiasConcentration Concentration Concentration 2.5 mg/dl 6.0 g/dl +0.41 +0.34 3.5 mg/dl 6.0 g/dl +0.50 +0.45 5 mg/dl 6.0 g/dl +0.73 +0.65 2.5 mg/dl 8.0 g/dl +0.44 +0.41 3.5 mg/dl 8.0 g/dl +0.55 +0.52 5 mg/dl 8.0 g/dl +0.86 +0.77 ALBUMIN (test code = ALB) 4.9 G/DL 3.5-5.0 N CALCIUM (test code = CA) 9.7 MG/DL 8.4-10.2 N BILIRUBIN TOTAL (test code = BILT) 0.7 MG/DL 0.2-1.3 N Eltrombopag Inte rference for Vitros Product TBil, BuBc: Assay Eltrombopag Analyte/ Max Observed Avg. Bias Concentration Concentration Concentration TBil 7mg/dl TBil/ 1.2mg/dl +0.23mg.dl +0.20mg/dlBuBc 3.5mg/dl Bu/0.8mg/dl +0.25mg/dl +0.24mg/dlBuBc 7 mg/dl Bu/14.2mg/dl +0.38mg/dl +0.25mg/dlBuBc 5mg/dl Bc/0mg/dl +0.25mg/dl +0.15mg/dlBuBc 3.5mg/dl Bc/2.8mg/dl +0.25mg/dl +0.23mg/dl SGOT/AST (test code = AST) 33 UNITS/L 14-36 N SGPT/ALT (test code = ALT) 21 UNITS/L <35 ALKALINE PHOSPHATASE (test code = ALKP) 81 UNITS/L 38-126 N [id number] 18:45:00* Test Item Value Reference Range Interpretation Comme nts TROPONIN-I (test code = TROPI) NG/ML 0.0-0.045 COVID-19 (ID NOW RAPID TESTING)2021-02-13 18:42:03* Test Item Value Reference Range Interpretation Comme nts SARS-CoV-2 Rapid ID NOW (test code = 85216-5) Not Detected Not Detected JEN (test code = JEN) ID NOW COVID-19 As say is an isothermal nucleic acid amplification test intended for the qualitative detection of nucleic acid from SARS-CoV-2 viral RNA in nasopharyngeal (TEST ENGINEERING INTERN) specimens. It is used under Emergency Use Authorization (EUA) by FDA. The limit of detection (LOD) of the assay is 125 Genome Equivalents/mL. A positive result is indicative of the presence of SARS-CoV-2 RNA. ?Clinical correlation with patient history and other diagnostic information is necessary to determine patient infection status. A negative (Not Detected) result does not preclude SARS-CoV-2 infection. In patients with clinical symptoms and other tests that are consistent with SARS-CoV-2 infection, negative results should be treated as presumptive negative and a new specimen should be tested with alternative PCR molecular test. Invalid: Please collect a new specimen for repeat patient testing if clinically indicated. Lab Interpretation (test code = 98849-3) Normal [facility]21[facility] 18:42:00* Test Item Value Reference Range Interpretation Comme nts PHOSPHOROUS (test code = PHOS) 3.9 MG/DL 2.5-4.5 N [id number] 18:42:00* Test Item Value Reference Range Interpretation Comme nts MAGNESIUM (test code = MAG) 1.9 MG/DL 1.6-2.3 N CBC W/AUTO [id number] 18:24:00* Test Item Value Reference Range Interpretation Comme nts WHITE BLOOD CELL (test code = WBC) 7.4 K/MM3 3.8-9.8 N RED BLOOD CELL (test code = RBC) 4.69 M/MM3 3.58-4.97 N HEMOGLOBIN (test code = HGB) 11.9 G/DL 11.2-14.9 N HEMATOCRIT (test code = HCT) 38.8 % 33.2-43.5 N MEAN CELL VOLUME (test code = MCV) 83 fL 80.7-99.1 N MEAN CELL HGB (test code = MCH) 25.4 pg 27.0-34.1 L MEAN CELL HGB CONCETRATION (test code = MCHC) 30.7 % 32.2-35.7 L RED CELL DISTRIBUTION WIDTH (test code = RDW) 15.7 % 12.1-15.2 H PLATELET COUNT (test code = PLT) 231 K/MM3 129-368 N MEAN PLATELET VOLUME (test c ode = MPV) 10.5 fl 7.4-10.4 H NEUTROPHIL % (test code = NT%) 65.9 % 43-75 N IMMATURE GRANULOCYTE % (test code = IG%) 0.1 % 0.0-2.0 N LYMPHOCYTE % (test code = LY%) 25.6 % 14-44 N MONOCYTE % (test code = MO%) 7.1 % 4-13 N EOSINOPHIL % (test code = EO%) 0.5 % 0-6 N BASOPHIL % (test code = BA%) 0.8 % 0-2 N NUCLEATED RBC % (test code = NRBC%) 0.0 % 0-1.0 N NEUTROPHIL # (test code = NT#) 4.84 K/mm3 2.0-7.6 N IMMATURE GRANULOCYTE # (test code = IG#) 0.01 x10 3/uL 0-0.03 N LYMPHOCYTE # (test code = LY#) 1.88 K/mm3 1.0-3.8 N MONOCYTE # (test code = MO#) 0.52 K/mm3 0.1-0.8 N EOSINOPHIL # (test code = EO#) 0.04 K/mm3 0.0-0.2 N BASOPHIL # (test code = BA#) 0.06 K/mm3 0.0-0.2 N NUCLEATED RBC # (test code = NRBC#) 0.00 K/mm3 0.0-0.1 N Basic Metabolic Panel (NA, K, CL, CO2, GLUCOSE, BUN, CREATININE, CA)2021-02-13 18:05:38* Test Item Value Reference Range Interpretation Comme nts NA (test code = 9408953821) 141 mmol/L 135-145 K (test code = 2333071264) 4.2 mmol/L 3.5-5.0 CL (test code = 2417144489) 104 mmol/L 98-108 CO2 TOTAL (test code = 2837044882) 28 mmol/L 23-31 AGAP (test code = 0758816106) 2-16 BUN (test code = 8612431778) 18 mg/dL 7-23 GLUCOSE (test code = 0240204442) 109 mg/dL 70-110 CREATININE (test code = 2082734488) 0.65 mg/dL 0.50-1.04 CALCIUM (test code = 6697180448) 10.0 mg/dL 8.6-10.6 eGFR (test code = 9846160432) mL/min/1.73m2 JEN (test code = JEN) Association of Glomerular Filtration Rate (GFR) and Staging of Kidney Disease* + + +- +| GFR (mL/min/1.73 m2) ?| With Kidney Damage ?| ?Without Kidney Damage+ ------+ ----+ ------+| ?>90 ?| ?Stage one ?| ? Normal ?+ -+ + -+| ?60-89 ?| ?Stage two ?| ? Decreased GFR ? + + +- +| ?30-59 ?| ?Stage three ?| ? Stage three ? + + +- +| ?15-29 ?| ?Stage four ? | ? Stage four ?+ -+ + -+| ?<15 (or dialysis) ? ?| ?Stage five ? | ? Stage five ?+ -+ + -+ *Each stage assumes the associated GFR level has been in effect for at least three months. ?Stages 1 to 5, with or without kidney disease, indicate chronic kidney disease. Notes: Determination of stages one and two (with eGFR >59mL/min/1.73 m2) requires estimation of kidney damage for at least three months as defined by structural or functional abnormalities of the kidney, manifested by either:Pathological abnormalities or Markers of kidney damage (including abnormalities in the composition of the blood or urine or abnormalities in imaging tests). [facility] [id number] 18:02:36* Test Item Value Reference Range Interpretation Comments TROPONIN I (test code = 2967795058) 0.135 ng/mL See_Comment H [Automated message] The system which generated this result transmitted reference range: <=0.034. The reference range was not used to interpret this result as normal/abnormal. JEN (test code = JEN) Reference (Normal) Range (defined by the 99th percentile reference limit): <= 0.034 ng/mL Note: Cardiac troponin begins to rise 3-4 hours after the onset of ischemia. Repeat in 4-6 hours if the sample was drawn within 3-4 hours of the onset of the symptom and found normal. Diagnosis of myocardial injury is made with acute changes in cTn concentrations with at least one serial sample above the 99th percentile upper reference limit (URL), taken together with the patient's clinical presentation. Biotin has been reported to cause a negative bias, interpret results relative to patient's use of biotin. Lab Interpretation (test code = 69365-8) Abnormal [facility] 1 [id number] 17:54:30No acute cardiopulmonary abnormality. PROCEDURE: XR CHEST 1 VW 02/13/2021 12:30 PM CLINICAL INDICATION: chest pain COMPARISON: Radiograph of 02/13/2021 TECHNIQUE: frontal views of the chest FINDINGS: Thelungs are clear. There is no pleural effusion. ?No pneumothorax. The cardiac size is normal. No aggressive osseous lesion. Cervicothoracic spinal fusion partiallyvisualized. [facility], Radiant Results Inft User - 02/13/2021 12:55 PM CDT PROCEDURE: XR CHEST 1 VW 02/13/2021 12:30 PMCLINICAL INDICATION: chest pain COMPARISON: Radiograph of 02/13/2021TECHNIQUE: frontal views of the chestFINDINGS:The lungs are clear. There is no pleural effusion. Nopneumothorax. The cardiac size is normal. No aggressive osseous lesion. Cervicothoracic spinal fusion partiallyvisualized.IMPRESSIONNo acute cardiopulmonary abnormality. [facility] (ALB, T.PRO, BILI T, BU/BC, ALT, AST, ALK PHOS)2021-02-13 17:51:19* Test Item Value Reference Range Interpretation Comme nts TOTAL BILI (test code = 0300392199) 0.7 mg/dL 0.1-1.1 BILI UNCON (test code = 2355813177) 0.5 mg/dL 0.1-1.1 BILI CONJ (test code = 7241506287) 0.0 mg/dL 0.0-0.3 T PROTEIN (test code = 6147661202) 8.5 g/dL 6.3-8.2 H ALBUMIN (test code = 7293375497) 4.9 g/dL 3.5-5.0 ALK PHOS (test code = 2265165324) 82 U/L 34-122 ALTv (test code = 1742-6) 20 U/L 5-35 AST(SGOT) (test code = 3493847409) 32 U/L 13-40 Lab Interpretation (test cod e = 18567-4) Abnormal [facility] HospitalLipase [id number] 17:51:19* Test Item Value Reference Range Interpretation Comme nts LIPASE (test code = 5861521734) 52 U/L 0-220 Lab Interpretation (test cod e = 39721-8) Normal [facility] HospitalCBC with Gnmpqpvrfyiu5903-62-20 17:38:18* Test Item Value Reference Range Interpretation Comme nts WBC (test code = 6690-2) See_Comment [Automated [employer] ge] The system which generated this result transmitted reference range: 4.30 - 11.10 10*3/?L. The reference range was not used to interpret this result as normal/abnormal. RBC (test code = 789-8) See_Comment [Automated [employer] ge] The system which generated this result transmitted reference range: 3.93 - 5.25 10*6/?L. The reference range was not used to interpret this result as normal/abnormal. HGB (test code = 718-7) 12.2 g/dL 11.6-15.0 HCT (test code = 4544-3) 38.8 % 35.7-45.2 MCV (test code = 787-2) 80.7 fL 80.6-95.5 MCH (test code = 785-6) 25.4 pg 25.9-32.8 L MCHC (test code = 786-4) 31.4 g/dL 31.6-35.1 L RDW-SD (test code = 90218-6) 45.4 fL 39.0-49.9 RDW-CV (test code = 788-0) 15.7 % 12.0-15.5 H PLT (test code = 777-3) See_Comment [Automated [employer] ge] The system which generated this result transmitted reference range: 166 - 358 10*3/?L. The reference range was not used to interpret this result as normal/abnormal. MPV (test code = 85816-8) 10.4 fL 9.5-12.9 NRBC/100 WBC (test code = 4188001131) See_Comment [Automated [employer] ssage] The system which generated this result transmitted reference range: 0.0 - 10.0 /100 WBCs. The reference range was not used to interpret this result as normal/abnormal. NRBC x10^3 (test code = 9002282284) <0.01 See_Comment [Automated [employer] ge] The system which generated this result transmitted reference range: 10*3/?L. The reference range was not used to interpret this result as normal/abnormal. GRAN MAT (NEUT) % (test code = 770-8) 62.8 % IMM GRAN % (test code = 3739499777) 0.10 % LYMPH % (test code = 736-9) 28.3 % MONO % (test code = 5905-5) 6.8 % EOS % (test code = 713-8) 1.3 % BASO % (test code = 706-2) 0.7 % GRAN MAT x10^3(ANC) (test code = 6736527377) 4.32 10*3/uL 1.88-7.09 IMM GRAN x10^3 (test code = 3696765940) <0.03 0.00-0.06 LYMPH x10^3 (test code = 731-0) 1.95 10*3/uL 1.32-3.29 MONO x10^3 (test code = 742-7) 0.47 10*3/uL 0.33-0.92 EOS x10^3 (test code = 711-2) 0.09 10*3/uL 0.03-0.39 BASO x10^3 (test code = 704-7) 0.05 10*3/uL 0.01-0.07 Lab Interpretation (test code = 96523-9) Abnormal [facility]- XR FLUOROSCOPY 0-60 [id number] 09:25:00 Name: MARIA M THOMPSON [facility] : 1965 Age/S: 54 / F [address] Unit #: [id number] Loc: [place] [address] Phys: Jose Luong MD Acct: [id number] Dis Date: Status: REG SDCPHONE #: [phone] Exam Date: 11/19/2019 0845 FAX #: Reason: HOLMIUM LASER LITHOTRIPSY EXAMS: CPT: [id number] XR FLUOROSCOPY 0-60 MIN 71899 Fluoro Time: 35 SEC DAP (Gy m2): Air Kerma (mGy): EXAM:- XR FLUOROSCOPY 0-60 MIN HISTORY: HOLMIUM LASER LITHOTRIPSY Location code:C3 COMPARISON: None available time of interpretation. FINDINGS: Intraoperative fluoroscopy was provided for stent placement. Radiologist was not present for the procedure. 5 fluoroscopy images were obtained. Please see surgi jeffrey report. IMPRESSION: 1. As above. Fluoroscopy time: 35.5 seconds Cumulative dose: 6.01 mGy at 0925 Reported and signed by: KEVIN VALENZUELA M.D. CC: Hans Christiansen MD; Jose Luong MD PAGE 1 Signed Report Name: MARIA M THOMPSON [facility] : 1965 Age/S: 54 / F [address] Unit #: [id number] Loc: [place] [address] Phys: Jose Luong MD Acct: [id number] Dis Date: [place] [facility] [place] #: [phone] Exam Date: 11/19/2019 0845 FAX #: Reason: HOLMIUM LASER LITHOTRIPSY EXAMS: CPT: [id number] XR FLUOROSCOPY 0-60 MIN 31672 Fluoro Time: 35 SEC DAP (Gy m2): Air Kerma (mGy): <Continued> Technologist: Maria Fernanda Ziegler RT(R) Trnscb Date/Time: 11/19/2019 (924) LoHV2 Orig Print D/T: S: 11/19/2019 (928) PAGE 2 Signed Report Notes Date/Time Note Provider Source 2022-10-31 10:56:00 [id number] hHy9lyMWgrbc8Fxt8PvCPwe9Jkk7+ Jn1P9/K39qtHHroxv3bQzzgSn6/6854-43-74L23:56:98746 0-[address] [address] PATIENT NAME: MARIA M THOMPSON ADMIT DATE: 10/25/22ACCOUNT NO: [id number] ROOM NO: [facility] AGE: 57 REPORT TYPE: eTRANSESOPHAGEAL ECHO SEX: F ADMITTING PHYSICIAN:Tony Banerjee MD ATTENDING PHYSICIAN:Tony Banerjee MD *[facility]*[address] [place] [address]Hnlgl Transesophageal Echocardiogram Patient: Jocelyn Thompson Date: 10/25/2022 BP: [id number] 1965 Age: 57 Height: / Gender: F Weight: /BMI/BSA: / *Ordering Physician: * Tony Banerjee MD *Interpreting Physician: * Tony Banerjee MD*[facility]: * Shlomo Brii [facility], [facility] Study data: Consent: The risks, benefits, and alternatives to theprocedure were explained to the patient and informed consent wasobtained. Procedure: Initial setup: [facility]Intravenous access was obtained. SurfaceECG leads and pulse oximetric signals were monitored. Sedation. Moderatesedation was administered by cardiology staff. Transesophagealechocardiography was performed. Topical anesthesia was obtained usingviscous lidocaine. A transesophageal probe was inserted by the attendingcardiologist without difficulty. Study completion: The patienttolerated the procedure well. There were no complications. Findings Left ventricle: The cavity size is normal. Systolic function is normal.Right ventricle: The cavity size is normal. Systolic function isnormal.Left atrium: The appendage is well visualized and of normal size. Thereis no left atrial appendage thrombus.Right atrium: The atrium is normal in size.Aorta: The aorta is normal size. PATIENT NAME: MRAIA M THOMPSON [id number] [place] [address] PATIENT NAME: MARIA M THOMPSON ADMIT DATE: 10/25/22ACCOUNT NO: [id number] ROOM NO: Z.341 AGE: 57 REPORT TYPE: eTRANSESOPHAGEAL ECHO SEX: F ADMITTING PHYSICIAN:Tony Banerjee MD ATTENDING PHYSICIAN:Tony Banerjee MD Aortic valve: The leaflets are normal thickness. There is trivialregurgitation.Mitral valve: The leaflets are normal thickness. There is mildregurgitation.Tricuspid valve: The valve is structurally normal. There is noregurgitation.Pulmonic valve: Not well visualized.Pericardium: There is no pericardial effusion. Conclusions Summary: Left ventricle: The cavity size is normal. Systolic functionis normal. Prepared and electronically signed by Tony Banerjee MD10/31/2022 10:56 at 1056 PATIENT NAME: MARIA M THOMPSON sioissk4941-13-39U88:56:00Z.[id number] ilable for patient bkstKYLUPAYURKQQQA3795-83-19R09:56:58 [facility] 2022-10-26 06:05:00 [id number] 8rGFa1Sm3OVgmtAfHo/Mc4iBkKetF 2CO8boMNDhwc+kzmu4sFP3SkUjB4907-72-55Z52:05:02918 5-[address] [address] PATIENT NAME: MARIA M THOMPSON ADMIT DATE: 10/25/22ACCOUNT NO: [id number] ROOM NO: [facility] AGE: 57 REPORT TYPE: ELECTROCARDIOGRAM SEX: F ADMITTING PHYSICIAN:Tony Banerjee MD ATTENDING PHYSICIAN:Tony Banerjee MD Order:[id number] Reason : PAFIB Test Date/Time Stamp:MonOct 26 2022 06:05:00Blood Pressure : / mmHGVent. Rate : 074 BPM Atrial Rate : 074 BPM P-R Int : 158 ms QRS Dur : 096 ms QT Int : 416 ms P-R-T Axes : -07 -11 042 degrees QTc Int : 461 ms Normal sinus rhythmIncomplete right bundle branch blockBorderline ECGWhen compared with ECG of 25-OCT-2022 10:22,Vent. rate has increased BY 24 BPMIncomplete right bundle branch block is now presentConfirmed by JOLYNN KEYES ([id number]) on 10/26/2022 7:07:55 AM Referred By: Tony Banerjee Confirmed by:JOLYNN KEYES at 0707 PATIENT NAME: MARIA M THOMPSON .[id number] AVAvailable for patient rraxSUGVAHVZWQPSUH4152-16-43N97:08:22 [facility] 2022-10-26 06:04:00 [id number]/bDT V649fJj6B+b/dUCU9KOHOv0+LnUMJ 7lD1/sKtvz7nFe+RQci+uofxZf49015-68-26Q10:04:00 [facility]Card[facility] Progress NoteREPORT#:[id number] REPORT STATUS: SignedDATE:10/26/22 TIME: 0604 PATIENT: MARIA M THOMPSON UNIT #: [id number]#: [id number] [facility]GE: 57 SEX: F ATTEND: Tony Banerjee [facility] AUTHOR: Tony Banerjee MD * ALL edits or amendments must be made on the electronic/computer document * SubjectiveChief complaint:PAFIB.Patient reports:No: chest pain, palpitations, shortness of breath. Objective GeneralVS/I O:Vital Signs: Date Time Temp Pulse Resp B/P B/P Pulse O2 O2 Flow FiO2 Mean Ox Delivery Rate 10/25 2332 Nasal 2 cannula PATIENT WEIGHT: Weight (lb): Weight (oz): Weight (kg): Medications:Active Meds + DC'd Last 24 HrsSodium Chloride (SODIUM CHLORIDE 0.9%) 1,000 ML ONCE ONE IV (DC) Heparin Sodium (HEPARIN SODIUM) 0 .STK-MED ONE .ROUTE (DC) Ephedrine Sulfate (ePHEDrine sulfate) 0 .STK-MED ONE .ROUTE (DC) Ephedrine Sulfate (ePHEDrine sulfate) 0 .STK-MED ONE .ROUTE (DC) Heparin Sodium/Dextrose (HEPARIN 25,000UNITS/D5W 500ML) 500 ML .STK-MED ONE IV (DC) Lidocaine HCl (Glydo 2% JELLY) 0 .STK-MED ONE .ROUTE (DC) Succinylcholine Chloride (Quelicin) 0 .STK-MED ONE .ROUTE (DC) Lidocaine (XYLOCAINE 1%) 0 .STK-MED ONE .ROUTE (DC) Phenylephrine HCl (JONO-SYNEPHRINE/NS 10MG/100ML) 100 ML .STK-MED ONE IV (DC) Fentanyl Citrate (SUBLIMAZE (C-II)) 0 .STK-MED ONE .ROUTE (DC) Midazolam HCl (VERSED (C-IV)) 0 .STK-MED ONE .ROUTE (DC) Propofol (DIPRIVAN) 0 .STK-MED ONE .ROUTE (DC) Heparin Sodium (HEPARIN SODIUM) 0 .STK-MED ONE .ROUTE (DC) Heparin Sodium/Sodium Chloride (HEPARIN 1000 UNITS/NS 500ML) 1,500 ML .STK-MED ONE IV (DC) Iopamidol (ISOVUE-300) 0 .STK-MED ONE .ROUTE (DC) Lidocaine (XYLOCAINE 1%) 0 .STK-MED ONE .ROUTE (DC) Sodium Chloride (SODIUM CHLORIDE 0.9%) 1,000 ML Q13H IV Physical ExamGeneral appearance: alert, awake, orientedHead/Eyes: atraumatic, normocephalicENT: moist mucosal membranesNeck: no JVDCardiovascular: CV assessment: regular rate and rhythmRespiratory: clear to auscultation, no distressLower extremity: LE assessment: no edemaMusculoskeletal: full range of motionNeuro/INDUSTRIAL SECURITY ANALYST: alert, oriented X 3, CN II-XII intactSkin: dry, intactWound/incision: Location:Bilateral groin Site condition: No bleeding, hematoma.Psychiatry: normal affect, normal judgment/insight, normal mood ResultsFindings/Data:Laboratory Tests 10/26 10/25 0334 1120 Chemistry Sodium (137 - 145 MMOL/L) 139 141 Potassium (3.5 - 5.1 MMOL/L) 4.3 3.4 L Chloride (98 - 107 MMOL/L) 111 H 109 H Carbon Dioxide (22 - 30 MMOL/L) 24 25 Anion Gap (14 - 24 MMOL/L) 8 L 10 L BUN (7 - 17 MG/DL) 14 19 H Creatinine (0.52 - 1.04 MG/DL) 0.50 L 0.60 Glomerular Filtr Rate > 60 > 60 Glucose (74 - 106 MG/DL) 131 H 92 Calcium (8.4 - 10.2 MG/DL) 8.5 8.9 Magnesium (1.6 - 2.3 MG/DL) 2.0 Laboratory Tests 10/25 10/25 10/25 10/25 1635 1553 1528 1120 Coagulation INR (0.86 - 1.14) 1.0 APTT (26.2 - 35.4 SECONDS) 31.3 PT Patient/Control Mix (9.4 - 12.7 SECONDS) 11.3 Activated Coag Time (74 - 137 SEC) 299 H 305 H 323 H Laboratory Tests 10/26 10/25 0334 1120 Hematology WBC (3.8 - 9.8 K/MM3) 6.3 5.3 RBC (3.58 - 4.97 M/MM3) 4.04 4.47 Hgb (11.2 - 14.9 G/DL) 9.0 L 10.5 L Hct (33.2 - 43.5 %) 30.6 L 33.7 MCV (80.7 - 99.1 fL) 76 L 75 L MCH (27.0 - 34.1 pg) 22.3 L 23.5 L MCHC (32.2 - 35.7 %) 29.4 L 31.2 L RDW (12.1 - 15.2 %) 15.8 H 15.8 H Plt Count (129 - 368 K/MM3) 204 247 MPV (7.4 - 10.4 fl) 10.7 H 9.9 Neut % (Auto) (43 - 75 %) 89.5 H 46.4 Lymph % (Auto) (14 - 44 %) 7.9 L 39.9 Cavalier % (Auto) (4 - 13 %) 1.9 L 9.1 Eos % (Auto) (0 - 6 %) 0.0 3.4 Baso % (Auto) (0 - 2 %) 0.2 1.0 Neut # (Auto) (2.0 - 7.6 K/mm3) 5.65 2.44 Lymph # (Auto) (1.0 - 3.8 K/mm3) 0.50 L 2.10 Cavalier # (Auto) (0.1 - 0.8 K/mm3) 0.12 0.48 Eos # (Auto) (0.0 - 0.2 K/mm3) 0.00 0.18 Baso # (Auto) (0.0 - 0.2 K/mm3) 0.01 0.05 Immature Gran % (0.0 - 2.0 %) 0.5 0.2 Nucleated RBC % (0 - 1.0 %) 0.0 0.0 Nucleated RBCs # (Man) (0.0 - 0.1 K/mm3) 0.00 0.00 Laboratory Tests 10/25 1120 Chemistry Magnesium (1.6 - 2.3 MG/DL) 2.0 Laboratory Tests 10/25 1120 Coagulation APTT (26.2 - 35.4 SECONDS) 31.3 Diagnosis, Assessment Plan Free Text DxA P NotesFree Text DxA P Notes:IMP: PAFIB s/p PVI PLAN: d/c home f/u one week. at 0844 RPT #:[id number] OF REPORTPRProgress lsgd6488-75-40U31:04:00Z.DDKB25362676-8637VOAdtez able for patient spvpQIZRHOSSLOOLUG3547-03-62T79:44:13 [facility] 2022-10-25 18:14:00 [id number] ziymlf5KRmja4IcSoVrek9y4vnu8v lRIupZ1QH1LOol0yCdSENo74GKu1747-10-70P52:14:97282 4-[address] [address] PATIENT NAME: MARIA M THOMPSON ADMIT DATE: 10/25/22ACCOUNT NO: [id number] ROOM NO: [facility] AGE: 57 REPORT TYPE: CARDIAC CATHETERIZATION REPORT SEX: F ADMITTING PHYSICIAN:Tony Banerjee MD ATTENDING PHYSICIAN:Tony Banerjee MD PROCEDURE DATE: 10/25/2022 PROCEDURES:1. Comprehensive electrophysiology study with pulmonary vein isolation/atrial fibrillation ablation.2. Intracardiac echocardiography. PREPROCEDURE DIAGNOSES:1. Paroxysmal atrial fibrillation.2. History of pulmonary vein isolation, 2012. POSTPROCEDURE DIAGNOSES:1. Paroxysmal atrial fibrillation.2. History of pulmonary vein isolation, 2012. MINIATURE SET CONSTRUCTOR: Tony Banerjee MD ANESTHESIA: General endotracheal anesthesia. PROCEDURE DETAILS: After informed consent was obtained explaining to the patient risks, benefits and alternatives, the patient was brought to the cardiaccatheterization lab in the fasting postabsorptive state. She was prepped and draped in sterile fashion. Local anesthesia was supplied over both femoral veins with 1% lidocaine. Access to the veins was obtained using modified Seldinger technique with a micropuncture kit and ultrasound guidance. A 6-Monegasque, locking 8-Monegasque, and a 23 cm 9-Monegasque sheath was advanced over wires into the left femoral vein. A standard 8-Monegasque sheath was passed over a wire into the right femoral vein. All sheaths were aspirated and flushed and connected to heparinized saline infusion. A quadripolar catheter was advanced via the 6-Monegasque sheath and placed in the right ventricle. Adequate pacing and sensing was confirmed. A deflectable decapolar catheter was advanced via the locking 8-Monegasque sheath and placed in the coronary sinus. An intracardiac echocardiography catheter was advanced via the 9-Monegasque sheath and placed in theright atrium. Intracardiac echocardiography was performed to map the left atrium and visualize the interatrial septum. The VersaCross wire was then advanced through the 8-Monegasque sheath into the high right atrium. The 8-Monegasque sheath was removed and the VersaCross sheath was advanced over the wire into theleft atrium. The sheath and wire withdrawn into the posterior septal region. Atransseptal puncture was then performed with RF energy applied to the wire. Thewire was advanced into the left atrium. The sheath was advanced over the wire across the septum and then removed. The wire was retained in the left atrium. Dilation of the right femoral access site was then made with a short 14-Monegasque PATIENT NAME: MARIA M THOMPSON sheath. The FlexCath sheath was then prepped and advanced over the wire into the left atrium. The dilator and wire were removed. The sheath was aspirated and flushed and connected to heparinized saline infusion. A PentaRay catheter was then prepped and advanced via the sheath into the left atrium. A 3-dimensional interatrial map was created in the left atrium and pulmonary veins. The 3-dimensional map revealed a nonisolated left superior pulmonary vein with anterior activity. The left lower vein showed low posterior activity. There was also anterior and superior activity in left superior pulmonary vein. The cryoballoon was then prepped and advanced via the sheath after removing the PentaRay catheter. The re-isolation of the veins was then performed on the leftsuperior, left inferior and right superior pulmonary veins. The cryoballoon wasremoved at the end of the cryo applications. A 3-dimensional map with the PentaRay catheter post-cryotherapy revealed entrance block to the 4 pulmonary veins. At the end of the procedure, all catheters were removed. Esophageal temperature monitoring was utilized throughout. The phrenic nerve pacing was utilized when isolating the right superior pulmonary vein. After removing the catheters, all sheaths were aspirated and flushed. The sheaths were removed andhemostasis achieved with Vascade devices. The cryo sheath on the right was exchanged for a short 9-Monegasque sheath and hemostasis was then achieved with a Vascade device on the right. The patient tolerated the procedure well with no complications. CONCLUSION: Successful pulmonary vein isolation. ESTIMATED BLOOD LOSS: 10 mL. COMPLICATIONS: No complications. Dictated By: Tony Banerjee MD Date Dictated: 10/25/2022 18:14:21Date Transcribed: 10/25/2022 19:00:18GSP/ABHJob #: [id number] ID: [id number] CC:Jolynn Keyes MD (F)Authenticated by Tony Banerjee MD On 10/26/2022 10:32:55 AM at 1032 PATIENT NAME: MARIA M THOMPSON artk6716-45-69D87:00:00Z.[id number] ble for patient ndzwIQWTKGLELRAPFW6622-30-64S52:33:37 [facility] 2022-10-25 10:22:00 [id number] 7/klYcV71qOWhO3kGp0D6BBLYO8oR EF0bqwQggr/eO2GtteqP41+Cx7j8274-14-42I76:22:98620 -[address] [address] PATIENT NAME: MARIA M THOMPSON ADMIT DATE: 10/25/22ACCOUNT NO: [id number] ROOM NO: [facility] AGE: 57 REPORT TYPE: ELECTROCARDIOGRAM SEX: F ADMITTING PHYSICIAN:Tony Banerjee MD ATTENDING PHYSICIAN:Tony Banerjee MD Order:[id number] Reason : PREOP Test Date/Time Stamp:MonOct 25 2022 10:22:29Blood Pressure : / mmHGVent. Rate : 050 BPM Atrial Rate : 050 BPM P-R Int : 140 ms QRS Dur : 094 ms QT Int : 458 ms P-R-T Axes : -14 -12 035 degrees QTc Int : 417 ms Sinus bradycardia with sinus arrhythmiaOtherwise normal ECGWhen compared with ECG of 16-FEB-2021 05:07,T wave amplitude has decreased in Anterior leadsQT has shortenedConfirmed by JULIAN FERRERA MD ([id number]) on 10/25/2022 5:57:26 PM Referred By: Tony Banerjee Confirmed by:JULIAN FERRERA MD at 1757 PATIENT NAME: MARIA M THOMPSON .[id number] AVAvailable for patient uxqmUMDRAEHNYXGCIY0649-08-28P24:57:56 [facility] 2022-10-25 10:22:00 [id number] QoMLOoU76b/bcgg7Q2Me2MAHkdef7 smoNOuy151tFbl4Fq5Qd156hytm0840-48-19G34:22:91470 -[address] [address] PATIENT NAME: MARIA M THOMPSON ADMIT DATE: 10/25/22ACCOUNT NO: [id number] ROOM NO: Z.341 AGE: 57 REPORT TYPE: ELECTROCARDIOGRAM SEX: F ADMITTING PHYSICIAN:Tony Banerjee MD ATTENDING PHYSICIAN:Tony Banerjee MD Order:[id number] Reason : PREOP Test Date/Time Stamp:MonOct 25 2022 10:22:29Blood Pressure : / mmHGVent. Rate : 050 BPM Atrial Rate : 050 BPM P-R Int : 140 ms QRS Dur : 094 ms QT Int : 458 ms P-R-T Axes : -14 -12 035 degrees QTc Int : 417 ms Sinus bradycardia with sinus arrhythmiaOtherwise normal ECGWhen compared with ECG of 16-FEB-2021 05:07,T wave amplitude has decreased in Anterior leadsQT has shortenedReconfirmed by JOLYNN KEEYS ([id number]) on 10/25/2022 7:15:30 PM Referred By: Tony Banerjee Confirmed by:JOLYNN KEYES at 1915 PATIENT NAME: MARIA M THOMPSON .[id number] AVAvailable for patient dibgFHQKBWDJAEKUZJ9745-41-11K35:21:21 [facility] 2021-02-25 16:50:00 YEdsrnxncec46299032Y FyUu+CUOAAPWJc89LnlY3VarSyRVZ 334XXf6R7Cp6vDzwqGpAKhB2WsaTomZgJo1029-34-60F48:5 0:[id number] [address] PATIENT NAME: MARIA M THOMPSON ADMIT DATE: 02/14/21ACCOUNT NO: [id number] ROOM NO: Z.I14 AGE: 55 REPORT TYPE: CARDIAC CATHETERIZATION REPORT SEX: F ADMITTING PHYSICIAN:Frederick Uriarte MD ATTENDING PHYSICIAN:Frederick Uriarte MD PROCEDURE DATE: 02/14/2021 ADDENDUM TO THE CARDIAC CATHETERIZATION REPORT: Confirmation #[id number], DID #[id number]. PROCEDURES:1. Left heart catheterization.2. Selective coronary angiography.3. Left ventriculography.4. Right femoral arteriography.5. Angio-Seal deployment. Dictated By: Tony Banerjee MD WT: CATH:ZPonchoCPS/PEPGR/NTSDD: 02/25/2021 16:50:51DT: 02/25/2021 16:55:49Conf#: [id number]/DID#: [id number] Authenticated by Tony Banerjee MD On 02/26/2021 05:19:11 PM at 1719 PATIENT NAME: MARIA M THOMPSON Hzgc9197-81-24R11:55:00Z.[id number] ble for patient pdhlFDPZMBLQZKMGWC1160-03-26B99:19:41 [facility] 2021-02-16 06:57:00 YQszijcihzk51040960h 4vKlmmD3JSCpzpCnaLIhU4QcYJyK+ sruyCkuRyJfHmDc1k/zmdevaOWUrrn8UeP6000-95-58I06:5 7:00 [facility]Card[facility] Progress NoteREPORT#:[id number] REPORT STATUS: SignedDATE:02/16/21 TIME: 06 PATIENT: MARIA M THOMPSON UNIT #: [id number]#: [id number] [facility] AGE: 55 SEX: F ATTEND: Frederick Uriarte [facility] AUTHOR: Tony Banerjee MD * ALL edits or amendments must be made on the electronic/computer document * SubjectiveChief Complaint:Chest pain.Patient reports:No: chest pain, nausea, palpitations, shortness of breath. Objective GeneralVS/I O:24 hour I O ending at 0700: 07/06 0700 07/05 1900 Intake Total 2200.00 Output Total Balance 2200.00 Intake, IV 1000.00 Intake, Oral 1200 Number Voids 9 Vital Signs: Date Time Temp Pulse Resp B/P B/P Pulse O2 O2 Flow FiO2 Mean Ox Delivery Rate 07/06 0600 52 19 108/63 80 97 07/06 0530 57 15 109/68 84 98 07/06 0500 49 18 103/61 76 99 07/06 0430 58 19 106/60 78 96 07/06 0400 97.4 07/06 0400 96/55 70 07/06 0359 51 21 96 07/06 0330 49 19 101/58 74 98 07/06 0300 67 24 118/57 82 94 07/06 0230 51 20 96/56 69 96 07/06 0200 106/59 77 07/06 0200 50 18 96 07/06 0130 54 20 107/57 77 98 07/06 0100 65 22 108/66 82 95 07/06 0030 49 18 94/50 65 99 07/06 0000 97.5 07/06 0000 45 18 97/60 73 99 07/05 2330 51 19 106/58 79 98 07/05 2300 52 19 98/55 73 99 07/05 2230 50 18 89/54 67 97 07/05 2200 49 20 92/53 66 96 07/05 2130 54 20 100/56 74 97 07/05 2100 54 21 95/54 67 96 07/05 2030 51 20 97/52 66 97 07/05 1999 97.5 07/05 1999 61 20 90/50 65 99 07/05 1934 66 25 84/49 62 100 07/05 1930 64 22 87/50 63 100 07/05 1900 68 22 88/50 62 100 07/05 1848 61 20 100 07/05 1830 55 26 97/57 73 07/05 1816 58 15 100/59 75 100 07/05 1801 64 17 99/60 76 94 07/05 1746 59 22 94/54 68 100 07/05 1730 65 31 93/54 68 100 07/05 1706 57 24 92/56 69 100 07/05 1701 59 22 85/51 63 100 07/05 1646 56 23 91/53 65 100 07/05 1630 60 18 92/54 68 100 07/05 1628 97.4 07/05 1616 57 16 88/52 65 100 07/05 1601 56 21 92/54 68 99 07/05 1556 57 16 93/55 70 99 07/05 1545 59 14 89/52 66 99 07/05 1530 61 32 96/58 71 98 07/05 1519 60 24 82/52 62 100 07/05 1445 65 25 100 07/05 1314 73 20 90/53 67 100 07/05 1302 70 27 89/55 65 96 07/05 1201 68 30 95/66 75 99 07/05 1156 97.2 07/05 1101 64 19 104/70 84 100 07/05 1001 64 19 97/57 72 100 07/05 0944 64 18 92/57 69 100 07/05 0901 81 16 97/56 70 100 07/05 0801 68 22 111/75 89 100 07/05 0722 97.6 07/05 0701 64 19 103/59 76 97 PATIENT WEIGHT: Weight (lb): 207Weight (oz): 6.93Weight (kg): 94.090 Medications:Active Meds + DC'd Last 24 HrsSodium Chloride 500 ML BOLUS ONCE ONE IV (DC) Sodium Chloride 500 ML .Q1H IV (DC) Clopidogrel Bisulfate 75 MG DAILY PO Dronedarone 400 MG BID PO Rivaroxaban 20 MG DAILY PO (DC) Rivaroxaban 20 MG DAILY PO Nitroglycerin 0.5 INCH Q6HR TRANSDERM (DC) Promethazine/Sodium Chloride 50 ML Q6H PRN PRN IV Aspirin 81 MG DAILY PO Liothyronine Sodium 5 MCG DAILY PO Morphine Sulfate 1 MG Q4H PRN PRN IV Morphine Sulfate 2 MG Q4H PRN PRN IV Levothyroxine Sodium 100 MCG 0630 PO Levothyroxine Sodium 75 MCG 0630 PO Mupirocin 1 APPLIC BID NASAL Atorvastatin Calcium 40 MG BEDTIME PO Insulin Human Lispro LOW DOSE SLIDING SCALE AC HS SUBQ (DC) Metoprolol Succinate 50 MG BID PO (DC) Nitroglycerin 0.4 MG Q5M PRN PRN SL Dextrose/Water 12.5 GM ASDIR PRN IV Dextrose/Water 25 GM ASDIR PRN IV Acetaminophen 650 MG Q4H PRN PRN PO Hydralazine HCl 10 MG Q4H PRN PRN IV Ondansetron HCl 4 MG Q8H PRN PRN IV Physical ExamGeneral appearance: alert, awake, orientedHead/Eyes: atraumatic, normocephalicENT: moist mucosal membranesNeck: no JVDCardiovascular: CV assessment: regular rate and rhythmRespiratory: clear to auscultation, no distressLower extremity: LE assessment: no edemaMusculoskeletal: full range of motionNeuro/INDUSTRIAL SECURITY ANALYST: alert, oriented X 3, CN II-XII intactSkin: dry, intactPsychiatry: normal affect, normal judgment/insight, normal mood Diagnosis, Assessment Plan Free Text DxA P NotesFree Text DxA P Notes:IMP: NSTEMI Probable OM branch culprit - patent at left heart cath. HLP Hypothyroidism PAF PLAN: d/c home f/u one week. Hold metoprolol. Continue multaq. at 0622 RPT #:[id number] OF REPORTPRProgress Ljuu8869-29-87D62:57:00Z.DTKU30386183-8821EXLovek able for patient ftdoCQBXXGLFXBJPAC7070-70-52V42:22:53 [facility] 2021-02-16 05:07:00 HUnmzzoocju23226680t 35AWbmiq9R4X1PLr70qJsEvsGO1je kzRMoDon8FNRyWOuIsrZfcWHEyrM4vmYF39542-82-58U14:0 7:056981-[address] [address] PATIENT NAME: MARIA M THOMPSON ADMIT DATE: 02/14/21ACCOUNT NO: [id number] ROOM NO: [facility] AGE: 55 REPORT TYPE: ELECTROCARDIOGRAM SEX: F ADMITTING PHYSICIAN:Frederick Uriarte MD ATTENDING PHYSICIAN:Frederick Uriarte MD Order:[id number] Reason : CAD/ID/PAFIB Test Date/Time Stamp:MonFeb 16 2021 05:07:16Blood Pressure : / mmHGVent. Rate : 059 BPM Atrial Rate : 059 BPM P-R Int : 148 ms QRS Dur : 096 ms QT Int : 488 ms P-R-T Axes : 001 -23 041 degrees QTc Int : 483 ms Sinus bradycardiaProlonged QTAbnormal ECGWhen compared with ECG of 15-FEB-2021 05:31,No significant change was foundConfirmed by JOLYNN KEYES ([id number]) on 02/16/2021 8:36:01 AM Referred By: Frederick Uriarte Confirmed by:JOLYNN KEYES at 0836 PATIENT NAME: MARIA M THOMPSON .[id number] AVAvailable for patient rekvVEYCTLCSGHZGNC8618-14-15C07:36:19 [facility] 2021-02-16 05:07:00 XKrtdadecfq74131221Z i3P33zH7KM1BpOL8JbzCpmxd5WusO EEN1ULawd5q0nb3n0GJ7fbJy8TdHggORBY8729-45-24D27:0 7:[id number] [place] [address] PATIENT NAME: MARIA M THOMPSON ADMIT DATE: 02/14/21ACCOUNT NO: [id number] ROOM NO: [facility] AGE: 55 REPORT TYPE: ELECTROCARDIOGRAM SEX: F ADMITTING PHYSICIAN:Frederick Uriarte MD ATTENDING PHYSICIAN:Frederick Uriarte MD Order:[id number] Reason : CAD/ID/PAFIB Test Date/Time Stamp:MonFeb 16 2021 05:07:16Blood Pressure : / mmHGVent. Rate : 059 BPM Atrial Rate : 059 BPM P-R Int : 148 ms QRS Dur : 096 ms QT Int : 488 ms P-R-T Axes : 001 -23 041 degrees QTc Int : 483 ms Sinus bradycardiaProlonged QTAbnormal ECGWhen compared with ECG of 15-FEB-2021 05:31,No significant change was foundConfirmed by JOLYNN KEYES ([id number]) on 02/16/2021 5:13:29 PM Referred By: Frederick Uriarte Confirmed by:JOLYNN KEYES at 1713 PATIENT NAME: MARIA M THOMPSON .[id number] AVAvailable for patient hxtqRRSJVDTZKZGOAX7294-41-35S92:13:45 [facility] 2021-02-15 17:20:00 [id number] f9IepG+XKIzKxfm7ppsg2tkRPJ/yY lsDtupjJUQ/4+1KItp4N17YCOh83nMuTVm0175-33-32C20:2 0:00 [facility]ownHospitalist Progress NoteREPORT#:[id number] REPORT STATUS: SignedDATE:02/15/21 TIME: 1720 PATIENT: MARIA M THOMPSON UNIT #: [id number]#: [id number] [facility] AGE: 55 SEX: F ATTEND: Frederick Uriarte [facility] AUTHOR: Frederick Uriarte MD * ALL edits or amendments must be made on the electronic/computer document * SubjectiveChief Complaint:doing better today. denies any chest pain or sob. bp on lower side with MAP around 65 Review of SystemsAll systems rev neg: except as marked Objective GeneralVS/I O:Vital Signs: Date Time Temp Pulse Resp B/P B/P Pulse O2 O2 Flow FiO2 Mean Ox Delivery Rate / 1706 57 24 92/56 69 100 07/05 1701 59 22 85/51 63 100 07/05 1646 56 23 91/53 65 100 07/05 1630 60 18 92/54 68 100 07/05 1628 36.3 07/05 1616 57 16 88/52 65 100 07/05 1601 56 21 92/54 68 99 07/05 1556 57 16 93/55 70 99 07/05 1545 59 14 89/52 66 99 07/05 1530 61 32 96/58 71 98 07/05 1519 60 24 82/52 62 100 07/05 1445 65 25 100 07/05 1314 73 20 90/53 67 100 07/05 1302 70 27 89/55 65 96 07/05 1201 68 30 95/66 75 99 07/05 1156 36.2 07/05 1101 64 19 104/70 84 100 07/05 1001 64 19 97/57 72 100 07/05 0944 64 18 92/57 69 100 07/05 0901 81 16 97/56 70 100 07/05 0801 68 22 111/75 89 100 07/05 0722 36.4 07/05 0701 64 19 103/59 76 97 07/05 0601 65 17 107/70 84 99 07/05 0501 58 18 103/60 76 96 07/05 0402 70 19 98/65 76 95 07/05 0400 36.4 07/05 0302 58 18 100/61 75 97 07/05 0201 68 18 109/69 84 95 07/05 0101 66 21 114/75 89 96 07/05 0002 68 20 110/72 86 99 07/05 0000 36.4 07/04 2202 68 13 131/85 104 99 07/04 2117 136/94 110 07/04 2102 74 21 149/97 116 100 07/04 2001 73 21 120/81 97 97 07/04 2000 36.4 07/04 1902 82 13 144/93 114 100 07/04 1738 65 21 99 24 hour I O ending at 0700: 07 0700 07/ 1900 Intake Total 1340.00 Output Total 500 Balance 840.00 Intake, IV 1120.00 Intake, Oral 220 Number Voids 1 6 Output, Emesis Output, Urine 500 PATIENT WEIGHT: Weight (lb): 207Weight (oz): 6.93Weight (kg): 94.090 Medications:Active Meds + DC'd Last 24 HrsSodium Chloride 500 ML BOLUS ONCE ONE IV Sodium Chloride 500 ML .Q1H IV (DC) Clopidogrel Bisulfate 75 MG DAILY PO Dronedarone 400 MG BID PO Rivaroxaban 20 MG DAILY PO (DC) Rivaroxaban 20 MG DAILY PO Sodium Chloride 1,000 ML ONCE ONE IV (DC) Nitroglycerin 0.5 INCH Q6HR TRANSDERM (DC) Promethazine/Sodium Chloride 50 ML Q6H PRN PRN IV Aspirin 81 MG DAILY PO Liothyronine Sodium 5 MCG DAILY PO Morphine Sulfate 1 MG Q4H PRN PRN IV Morphine Sulfate 2 MG Q4H PRN PRN IV Levothyroxine Sodium 100 MCG 0630 PO Levothyroxine Sodium 75 MCG 0630 PO Mupirocin 1 APPLIC BID NASAL Atorvastatin Calcium 40 MG BEDTIME PO Enoxaparin Sodium 90 MG Q12HR SUBQ (DC) Insulin Human Lispro LOW DOSE SLIDING SCALE AC HS SUBQ (DC) Metoprolol Succinate 50 MG BID PO (DC) Nitroglycerin 0.4 MG Q5M PRN PRN SL Dextrose/Water 12.5 GM ASDIR PRN IV Dextrose/Water 25 GM ASDIR PRN IV Acetaminophen 650 MG Q4H PRN PRN PO Hydralazine HCl 10 MG Q4H PRN PRN IV Ondansetron HCl 4 MG Q8H PRN PRN IV Nutrition assessment:The data set between the solid lines has been imported from the dietitian's assessment. Any exceptions have been noted under Provider comments. BMI Calculated: 28.9Nutrition related diagnosis: Nutrition diagnosis details: Nutrition problem: Nutrition etiology: Nutrition signs and symptoms: Nutrition prescription: Dietitian name: Assessment completed: Provider comments on imported dietitian assessment: Physical ExamGeneral appearance: alert, awakeHead/Eyes: atraumatic, normal conjunctiva/sclera, PERRLENT: moist mucosal membranes, normal dentition, normal ear left, normal ear right, normal noseNeck: non-tender, normal thyroid, no JVD, no masses or swellingCardiovascular: normal capillary refill, normal heart sounds, regular rate rhythm, no murmurRespiratory: aerating well, clear to auscultation, symmetric expansion, no distressAbdomen: non-tender, normal bowel sounds, soft, no distention, no guarding, no hernia, no mass/organomegaly, no reboundExtremities: moves all, normal capillary refill, normal range of motion, no calftenderness, no clubbing, no cyanosis, no edemaMusculoskeletal: normal inspection, painless range of motion, no CVA tenderness,no muscle spasmNeuro/INDUSTRIAL SECURITY ANALYST: alert, oriented X 3, CNII-XII intact, normal speech, no motor deficits, no sensory deficitsSkin: dry, intact, normal color, normal temperature, no rash ResultsFindings/Data:Laboratory Tests 02/15 02/14 0345 2104 Chemistry Sodium (137 - 145 MMOL/L) 139 Potassium (3.5 - 5.1 MMOL/L) 3.6 Chloride (98 - 107 MMOL/L) 104 Carbon Dioxide (22 - 30 MMOL/L) 27 Anion Gap (14 - 24 MMOL/L) 12 L BUN (7 - 17 MG/DL) 13 Creatinine (0.52 - 1.04 MG/DL) 0.60 Glomerular Filtr Rate > 60 Glucose (74 - 106 MG/DL) 89 POC Glucose (60 - 99 MG/DL) 87 Calcium (8.4 - 10.2 MG/DL) 8.9 Laboratory Tests 02/15 345 Hematology WBC (3.8 - 9.8 K/MM3) 7.4 RBC (3.58 - 4.97 M/MM3) 4.34 Hgb (11.2 - 14.9 G/DL) 11.0 L Hct (33.2 - 43.5 %) 35.5 MCV (80.7 - 99.1 fL) 82 MCH (27.0 - 34.1 pg) 25.3 L MCHC (32.2 - 35.7 %) 31.0 L RDW (12.1 - 15.2 %) 15.9 H Plt Count (129 - 368 K/MM3) 214 MPV (7.4 - 10.4 fl) 10.8 H Neut % (Auto) (43 - 75 %) 49.8 Lymph % (Auto) (14 - 44 %) 40.1 Cavalier % (Auto) (4 - 13 %) 9.0 Eos % (Auto) (0 - 6 %) 0.4 Baso % (Auto) (0 - 2 %) 0.4 Neut # (Auto) (2.0 - 7.6 K/mm3) 3.70 Lymph # (Auto) (1.0 - 3.8 K/mm3) 2.98 Cavalier # (Auto) (0.1 - 0.8 K/mm3) 0.67 Eos # (Auto) (0.0 - 0.2 K/mm3) 0.03 Baso # (Auto) (0.0 - 0.2 K/mm3) 0.03 Immature Gran % (0.0 - 2.0 %) 0.3 Nucleated RBC % (0 - 1.0 %) 0.0 Nucleated RBCs # (Man) (0.0 - 0.1 K/mm3) 0.00 Diagnosis, Assessment PlanProblem List/A P: 1. NSTEMI (non-ST elevated myocardial infarction) 2. Afib 3. NEW ONSET HYPERTENSION 4. Hypothyroidism Orders: Procedure Date/time Status Change Admit/Attend Doctor 02/15 1101 Active Consultants: cardiology Free Text DxA P NotesFree text DxA P notes:Maria M Thompson is a 55 y/o F w/ PMH afib s/p ablation, hypothyroid, PSH C2-C7 surgery s/p fall transferred from [place] ER for acute onset chest pain. Chest pain has worsened with new-onset radiation to neck on top of existing radiation to L arm. Significant elevation in troponin since arrival, although normal EKG, CXR. Chest pain continued to worsen significantly despite nitro paste/sublingual. Ddx NSTEMI vs unstable angina vs PE. Given elevated/rising trop + normal EKG + severe chest pain concerning for NSTEMI especially. No tachypnea, SOB sounds related to chest pain more so than pulm etiology. No hypoxia. #Atypical chest pain#Possible NSTEMI#ACS Deep aching L sided chest pain w/ radiation to L arm and neck, 03/23 worseningto 05/23 despite meds Normal EKG at ER, on telemetry Troponin 02/13 = 0.135 > 0.9 As per cardiology given high risk for ACS and no response thus far to nitro transfer to ICU for nitro dripPlan:Continue ASA 81 mg PO daily Received 325 loading 02/13 at ERContinue nitroglycerin 0.4 mg SL q5m PRNContinue nitroglycerin 0.5 in transderm [id number] O2 2L via NCContinue home metoprololBegin atorvastatin 40 mg PO dailyBegin lovenox 90 mg subQ BIDConsult cardiologyTransfer to ICU for further extensive management and nitroglycerin drip Consider PCI or other reperfusion as indicatedBegin tylenol 650 mg PO q4 PRN for pain #chronic afib#past cardiac ablation s/p cardiac ablation, well controlled at home No additional complications since ablationPlan:Continue metoprolol as aboveHold home flecainide 100 mg [id number] home rivaroxaban 20 mg daily #New onset hypertension 160/100 at ER, decreased to 130/90, now back to 160/100 No PMH HTN, no HTN medications 2/2 acute onset pain vs cardiac etiologyPlan:Hydralazine 10 mg IV q6 PRN #SOB Mild SOB, sat 99% on 2L NC Likely 2/2 cardiac as abovePlan:O2 as above #Nausea New onset nausea, no vomiting thus far, able to tolerate PO medicationsPlan:Zofran 4 mg IV q8H PRN #Hypothyroid Well controlled at home, no sxPlan:StableContinue home liothyronine 5 mcg PO dailyContinue home levothyroxine 175 mcg PO daily #Prior C2-C7 surgery No current management indicated 7/4- pt off nitro drip this am. started on nitro patchBP is better controlled todaytrop trended up to 13. pt on and off have chest pain with nausea and vomiting. Seen and evaluated by Dr Banerjee. [facility] todaywill continue with current mx asp, metoprolol, statin and full dose lovenoxTSH < 0.015. will check Ft4 7/5LHC shows no occlusion. no more chest pancont asa/plavix/lipitorFt4 normalcont dronedaronecont xareltobolus to keep MAP above 65. dvt ppx: xarelto Quality: Gen [facility] Crit Care Current MedicationsCurrent medication review:I attest that the foregoing medication list in the medical record is true, accurate, and complete to the best of my knowledge. VTE ProphylaxisVTE prophylaxis initiated: yes (Lovenox, therapeutic) Heart Failure:DC on BB,AMY/ARBHF DC medications: EF: >40%AMY / ARB / ARNI at discharge: yes Beta-Jv at discharge: no at 1726 RPT #:[id number] OF REPORTPRProgress [id number]:20:00Z.[id number] able for patient numwXEFVWRDNAGDMUT8833-28-61D29:26:47 [facility] 2021-02-15 06:37:00 [id number] vot+G48RvEmh2xrQQVDIYnNFDbwNt Vk+CHrfGiA+6pjIErv9Jleo16ALOXffulz7419-35-58Y98:3 7:00 [facility] ([facility])Cardiology Progress NoteREPORT#:[id number] REPORT STATUS: SignedDATE:02/15/21 TIME: 636 PATIENT: MARIA M THOMPSON UNIT #: [id number]#: [id number] [facility] AGE: 55 SEX: F ATTEND: Frederick Uriarte [facility] AUTHOR: Tony Banerjee MD * ALL edits or amendments must be made on the electronic/computer document * SubjectiveChief Complaint:Chest pain.Patient reports:No: chest pain, palpitations, shortness of breath. Objective GeneralVS/I O:24 hour I O ending at 0700: 02/15 0700 02/14 1900 Intake Total 1340.00 Output Total 500 Balance 840.00 Intake, IV 1120.00 Intake, Oral 220 Number Voids 1 6 Output, Emesis Output, Urine 500 Vital Signs: Date Time Temp Pulse Resp B/P B/P Pulse O2 O2 Flow FiO2 Mean Ox Delivery Rate 02/15 0601 65 17 107/70 84 99 /05 0501 58 18 103/60 76 96 07/05 0402 70 19 98/65 76 95 07/05 0400 97.5 07/05 0302 58 18 100/61 75 97 07/05 0201 68 18 109/69 84 95 07/05 0101 66 21 114/75 89 96 07/05 0002 68 20 110/72 86 99 07/04 2202 68 13 131/85 104 99 07/04 2117 136/94 110 07/04 2102 74 21 149/97 116 100 07/04 2002 73 21 120/81 97 97 07/ 2000 97.6 / 1902 82 13 144/93 114 100 07/ 1738 65 21 99 07/04 1702 72 25 141/87 106 99 07/04 1633 66 19 130/81 101 98 07/04 1620 97.8 07/04 1600 75 22 132/96 110 100 07/04 1545 104 24 149/106 124 100 07/04 1530 74 13 132/89 106 100 07/04 1515 76 0 141/93 112 100 07/04 1500 66 19 123/89 102 98 07/04 1445 79 33 140/94 112 100 07/04 1430 68 18 136/88 107 99 07/04 1415 72 21 132/90 106 97 07/04 1400 73 60 143/91 112 99 07/04 1345 75 29 129/90 106 99 07/04 1330 70 17 128/88 105 99 07/04 1317 76 16 133/84 105 98 07/04 1253 69 19 98 07/04 1245 97.5 07/04 1223 69 19 96 07/04 1208 125/78 97 07/04 1100 74 15 141/91 111 99 07/04 1045 80 24 139/90 110 99 07/04 1000 66 16 127/82 101 99 07/04 0930 68 20 139/82 108 96 07/04 0900 86 23 132/95 109 98 07/04 0830 66 19 131/89 106 95 07/04 0800 80 24 122/81 96 96 07/04 0730 64 17 104/64 79 95 07/04 0700 97.7 07/04 0700 77 26 113/69 86 96 07/04 0645 58 17 114/67 85 94 PATIENT WEIGHT: Weight (lb): 207Weight (oz): 6.93Weight (kg): 94.090 Medications:Active Meds + DC'd Last 24 HrsClopidogrel Bisulfate 75 MG DAILY PO Furosemide 40 MG ONCE ONE IV (CAN) Sodium Chloride 1,000 ML ONCE ONE IV (DC) Nitroglycerin 0.5 INCH Q6HR TRANSDERM Atropine Sulfate 0 .STK-MED ONE .ROUTE (DC) Heparin Sodium 0 .STK-MED ONE .ROUTE (DC) Heparin Sodium/Sodium Chloride 1,500 ML .STK-MED ONE IV (DC) Iopamidol 0 .STK-MED ONE .ROUTE (DC) Lidocaine 0 .STK-MED ONE .ROUTE (DC) Midazolam HCl 0 .STK-MED ONE .ROUTE (DC) Fentanyl Citrate 0 .STK-MED ONE .ROUTE (DC) Promethazine/Sodium Chloride 50 ML Q6H PRN PRN IV Nitroglycerin 0 .STK-MED ONE TRANSDERM (DC) Aspirin 81 MG DAILY PO Liothyronine Sodium 5 MCG DAILY PO Pantoprazole 40 MG Q12HR IV (DC) Clopidogrel Bisulfate 300 MG ONCE ONE PO (DC) Morphine Sulfate 1 MG Q4H PRN PRN IV Morphine Sulfate 2 MG Q4H PRN PRN IV Levothyroxine Sodium 100 MCG 0630 PO Levothyroxine Sodium 75 MCG 0630 PO Morphine Sulfate 4 MG Q4H PRN PRN IV (DC) Morphine Sulfate 6 MG Q4H PRN PRN IV (DC) Mupirocin 1 APPLIC BID NASAL Nitroglycerin/Dextrose 250 ML ASDIR IV (DC) Atorvastatin Calcium 40 MG BEDTIME PO Enoxaparin Sodium 90 MG Q12HR SUBQ Insulin Human Lispro LOW DOSE SLIDING SCALE AC HS SUBQ Metoprolol Succinate 50 MG BID PO Nitroglycerin 0.4 MG Q5M PRN PRN SL Dextrose/Water 12.5 GM ASDIR PRN IV Dextrose/Water 25 GM ASDIR PRN IV Acetaminophen 650 MG Q4H PRN PRN PO Hydralazine HCl 10 MG Q4H PRN PRN IV Ondansetron HCl 4 MG Q8H PRN PRN IV Physical ExamGeneral appearance: alert, awake, orientedHead/Eyes: atraumatic, normocephalicENT: moist mucosal membranesNeck: no JVDCardiovascular: CV assessment: regular rate and rhythmRespiratory: clear to auscultation, no distressLower extremity: LE assessment: no edemaMusculoskeletal: full range of motionNeuro/INDUSTRIAL SECURITY ANALYST: alert, oriented X 3, CN II-XII intactSkin: dry, intactPsychiatry: normal affect, normal judgment/insight, normal mood ResultsFindings/Data:Laboratory Tests 02/15 02/14 02/14 02/14 02/14 0345 2104 1608 1606 1300 Chemistry Sodium (137 - 145 MMOL/L) 139 Potassium (3.5 - 5.1 MMOL/L) 3.6 Chloride (98 - 107 MMOL/L) 104 Carbon Dioxide (22 - 30 MMOL/L) 27 Anion Gap (14 - 24 MMOL/L) 12 L BUN (7 - 17 MG/DL) 13 Creatinine (0.52 - 1.04 MG/DL) 0.60 Glomerular Filtr Rate > 60 Glucose (74 - 106 MG/DL) 89 POC Glucose (60 - 99 MG/DL) 87 113 H 107 H Calcium (8.4 - 10.2 MG/DL) 8.9 TSH (0.65 - 4.68 MIU/L) < 0.015 L Free T4 (0.78 - 2.19 NG/DL) 1.9 02/14 02/14 0746 0745 Chemistry POC Glucose (60 - 99 MG/DL) 114 H Troponin I (0.012 - 0.033 NG/ML) 13.000 *H Laboratory Tests 02/15 0345 Hematology WBC (3.8 - 9.8 K/MM3) 7.4 RBC (3.58 - 4.97 M/MM3) 4.34 Hgb (11.2 - 14.9 G/DL) 11.0 L Hct (33.2 - 43.5 %) 35.5 MCV (80.7 - 99.1 fL) 82 MCH (27.0 - 34.1 pg) 25.3 L MCHC (32.2 - 35.7 %) 31.0 L RDW (12.1 - 15.2 %) 15.9 H Plt Count (129 - 368 K/MM3) 214 MPV (7.4 - 10.4 fl) 10.8 H Neut % (Auto) (43 - 75 %) 49.8 Lymph % (Auto) (14 - 44 %) 40.1 Cavalier % (Auto) (4 - 13 %) 9.0 Eos % (Auto) (0 - 6 %) 0.4 Baso % (Auto) (0 - 2 %) 0.4 Neut # (Auto) (2.0 - 7.6 K/mm3) 3.70 Lymph # (Auto) (1.0 - 3.8 K/mm3) 2.98 Cavalier # (Auto) (0.1 - 0.8 K/mm3) 0.67 Eos # (Auto) (0.0 - 0.2 K/mm3) 0.03 Baso # (Auto) (0.0 - 0.2 K/mm3) 0.03 Immature Gran % (0.0 - 2.0 %) 0.3 Nucleated RBC % (0 - 1.0 %) 0.0 Nucleated RBCs # (Man) (0.0 - 0.1 K/mm3) 0.00 Laboratory Tests 02/14 1224 Toxicology Urine Opiates Screen (NEGATIVE) POSITIVE H Ur Barbiturates, Qual (NEGATIVE) NEGATIVE Ur Phencyclidine Scrn (NEGATIVE) NEGATIVE Ur Amphetamines Screen (NEGATIVE) NEGATIVE U Benzodiazepines Scrn (NEGATIVE) NEGATIVE Urine Cocaine Screen (NEGATIVE) NEGATIVE Urine Cannabinoids (NEGATIVE) NEGATIVE Laboratory Tests 02/14 1224 Urines Urine Color (YELLOW) YELLOW Urine Appearance (CLEAR) CLEAR Urine pH (5.0 - 9.0) 5.0 Ur Specific Hayden (1.003 - 1.030) 1.030 Urine Protein (NEGATIVE MG/DL) 15 Urine Glucose (UA) (NORMAL MG/DL) NORMAL Urine Ketones (NEGATIVE MG/DL) 15 H Urine Blood (NEGATIVE Vic/mm3) 10 H Urine Nitrite (NEGATIVE) NEGATIVE Urine Bilirubin (NEGATIVE MG/DL) NEGATIVE Urine Urobilinogen (NORMAL MG/DL) NORMAL Ur Leukocyte Esterase (NEGATIVE /mm3) NEGATIVE Urine RBC (0 - 3 RBC/HPF) 0-3 Urine WBC (0 - 5 WBC/HPF) 0-3 Ur Epithelial Cells (FEW EPI/HPF) FEW Urine Bacteria (NONE) FEW Urine Culture Screen (Culture Chk Criteria) NO, WBC<10 Laboratory Tests 02/14 0745 Chemistry Troponin I (0.012 - 0.033 NG/ML) 13.000 *H Radiology data:Recent Impressions:RADIOLOGY - XR CHEST 2 V 02/14 1527 Report Impression - Status: SIGNED Entered: 02/14/2021 1550 IMPRESSION: No acute pulmonary process. Impression By: Kadeem - Abbee Chen M.D. Diagnosis, Assessment Plan Free Text DxA P NotesFree Text DxA P Notes:IMP: NSTEMI Probable OM branch culprit - patent at left heart cath. HLP Hypothyroidism PAF PLAN: To tele Continue medical rx. Change flecainide to multaq with CAD hx. Resume Xarelto Probable d/c in am. at 0622 RPT #:[id number] OF REPORTPRProgress [id number]:37:00Z.[id number] able for patient gryoNFMNHCKTDZJNDB8552-18-69S63:22:33 [facility] 2021-02-15 05:31:00 [id number]/ dse47GLDTR8rlCSClMO3EJLtCYrDz z4d/FBHg+8va825oSGhfYBb8v9k8DF/5do1746-53-82K36:3 1:[id number] [place] [id number] PATIENT NAME: MARIA M THOMPSON ADMIT DATE: 02/14/21ACCOUNT NO: [id number] ROOM NO: .4 AGE: 55 REPORT TYPE: ELECTROCARDIOGRAM SEX: F ADMITTING PHYSICIAN:Ana Rosa Guerrero MD ATTENDING PHYSICIAN:Ana Rosa Guerrero MD Order:[id number] Reason : CP/CAD Test Date/Time Stamp:MonFeb 15 2021 05:31:47Blood Pressure : / mmHGVent. Rate : 070 BPM Atrial Rate : 070 BPM P-R Int : 140 ms QRS Dur : 090 ms QT Int : 464 ms P-R-T Axes : -06 000 051 degrees QTc Int : 501 ms Normal sinus rhythmJunctional ST depression, probably normalProlonged QTAbnormal ECGWhen compared with ECG of 14-FEB-2021 12:32,ST no longer depressed in Anterior leadsConfirmed by JOLYNN KEYES ([id number]) on 02/15/2021 8:30:58 AM Referred By: Ana Rosa Guerrero Confirmed by:JOLYNN KEYES at 0831 PATIENT NAME: MARIA M THOMPSON .[id number] AVAvailable for patient bcfoVLODQXRTLOQCYF9463-01-01Q48:31:18 [facility] 2021-02-14 13:18:00 [id number] UV6OMeroYRDktNumbu3X+77wuzt0D Cq9b6yGNHBq5FDyDwgvKcy1BB2J3yBNNVA8798-60-16C26:1 8:00 [facility] ([facility])Hospitalist Progress NoteREPORT#:[id number] REPORT STATUS: SignedDATE:02/14/21 TIME: 1318 PATIENT: MARIA M THOMPSON UNIT #: [id number]#: [id number] [facility] AGE: 55 SEX: F ATTEND: Ana Rosa Guerrero MDA AUTHOR: Ana Rosa Guerrero MD * ALL edits or amendments must be made on the electronic/computer document * SubjectiveChief Complaint:chest pain and vomiting Review of SystemsRespiratory:Denies: productive cough (sputum), SOB, wheezing. Cardiovascular:Reports: chest pain. Denies: edema, orthopnea, palpitations. GI:Reports: nausea, vomiting. Denies: abdominal pain. All systems rev neg: except as marked Objective GeneralVS/I O:Vital Signs: Date Time Temp Pulse Resp B/P B/P Pulse O2 O2 Flow FiO2 Mean Ox Delivery Rate / 1245 97.5 07/04 1100 74 15 141/91 111 99 07/04 1045 80 24 139/90 110 99 07/04 1000 66 16 127/82 101 99 07/04 0930 68 20 139/82 108 96 07/04 0900 86 23 132/95 109 98 07/04 0830 66 19 131/89 106 95 07/04 0800 80 24 122/81 96 96 07/04 0730 64 17 104/64 79 95 07/04 0700 97.7 07/04 0700 77 26 113/69 86 96 07/04 0645 58 17 114/67 85 94 07/04 0630 65 16 98/62 74 93 07/04 0615 68 15 101/61 76 92 07/04 0600 72 17 109/68 83 95 07/04 0545 72 16 110/71 87 90 07/04 0530 72 17 119/74 92 93 07/04 0515 74 19 121/73 92 91 07/04 0500 77 20 128/77 97 91 07/04 0445 130/80 100 88 07/04 0430 127/72 95 07/04 0415 82 137/88 108 98 07/04 0408 147/94 116 98 07/04 0405 155/96 121 07/04 0400 97.4 07/04 0345 65 17 113/72 89 99 07/04 0330 58 17 106/67 81 97 07/04 0315 54 17 96/57 71 96 07/04 0300 56 17 90/55 67 96 07/04 0245 56 18 96/55 70 96 07/04 0230 55 18 97/58 71 95 07/04 0215 63 19 102/57 73 94 07/04 0200 58 19 85/51 63 94 07/04 0145 57 17 94/54 68 96 07/04 0130 60 19 98/57 70 94 07/04 0115 61 17 98/59 73 96 07/04 0100 68 12 102/59 74 97 07/04 0045 65 18 97/58 72 95 07/04 0030 68 18 104/64 79 95 07/04 0015 69 17 117/77 92 91 07/04 0000 97.6 07/04 0000 72 20 121/76 97 91 07/03 2345 75 18 128/93 105 97 07/03 2330 71 24 126/84 101 98 07/03 2322 76 15 138/88 107 98 07/03 2319 153/101 122 99 07/03 2300 76 30 164/113 134 98 07/03 2245 58 13 124/77 95 98 07/03 2230 64 26 139/88 107 99 07/03 2226 64 35 143/90 112 99 07/03 2216 63 30 127/101 109 100 07/03 2200 72 45 164/92 120 07/03 2156 67 41 158/98 122 07/03 2120 0 155/80 111 07/03 2048 98.1 74 18 160/88 112.2 96 Room air 07/03 1912 98.1 53 18 159/105 123.1 100 Room air 07/03 1714 97.7 57 14 138/88 104.5 99 Room air 24 hour I O ending at 0700: 07/04 0700 07/03 1900 Intake Total 3.00 Output Total Balance 3.00 Intake, IV 3.00 Number Voids 2 Patient 94.09 kg Weight Weight Stated/Reported Measurement Method PATIENT WEIGHT: Weight (lb): 207Weight (oz): 6.93Weight (kg): 94.090 Medications:Active Meds + DC'd Last 24 HrsClopidogrel Bisulfate 75 MG DAILY PO Sodium Chloride 1,000 ML ONCE ONE IV Nitroglycerin 0.5 INCH Q6HR TRANSDERM Atropine Sulfate 0 .STK-MED ONE .ROUTE (DC) Heparin Sodium 0 .STK-MED ONE .ROUTE (DC) Heparin Sodium/Sodium Chloride 1,500 ML .STK-MED ONE IV (DC) Iopamidol 0 .STK-MED ONE .ROUTE (DC) Lidocaine 0 .STK-MED ONE .ROUTE (DC) Midazolam HCl 0 .STK-MED ONE .ROUTE (DC) Fentanyl Citrate 0 .STK-MED ONE .ROUTE (DC) Promethazine/Sodium Chloride 50 ML Q6H PRN PRN IV Nitroglycerin 0 .STK-MED ONE TRANSDERM (DC) Aspirin 81 MG DAILY PO Liothyronine Sodium 5 MCG DAILY PO Pantoprazole 40 MG Q12HR IV (DC) Clopidogrel Bisulfate 300 MG ONCE ONE PO (DC) Morphine Sulfate 1 MG Q4H PRN PRN IV Morphine Sulfate 2 MG Q4H PRN PRN IV Levothyroxine Sodium 100 MCG 0630 PO Levothyroxine Sodium 75 MCG 0630 PO Morphine Sulfate 4 MG Q4H PRN PRN IV (DC) Morphine Sulfate 6 MG Q4H PRN PRN IV (DC) Mupirocin 1 APPLIC BID NASAL Nitroglycerin 0.5 INCH Q6HR TRANSDERM (DC) Al Hydrox/Mg Hydrox/Simethicone 30 ML ONCE ONE PO (DC) Lidocaine HCl 15 ML ONCE ONE PO (DC) Iopamidol 0 .STK-MED ONE IV (DC) Lorazepam 2 MG NOW ONE IV (DC) Multi-Ingredient GI Drug 50 ML STAT STA PO (CAN) Morphine Sulfate 6 MG NOW ONE IV (DC) Nitroglycerin/Dextrose 250 ML ASDIR IV (DC) Nitroglycerin/Dextrose 250 ML ASDIR IV (DC) Atorvastatin Calcium 40 MG BEDTIME PO Enoxaparin Sodium 90 MG Q12HR SUBQ Insulin Human Lispro LOW DOSE SLIDING SCALE AC HS SUBQ Metoprolol Succinate 50 MG BID PO Nitroglycerin 0.4 MG Q5M PRN PRN SL Nitroglycerin 0.5 INCH Q6HR TRANSDERM (DC) Enoxaparin Sodium 40 MG 1800 SUBQ (DC) Dextrose/Water 12.5 GM ASDIR PRN IV Dextrose/Water 25 GM ASDIR PRN IV Acetaminophen 650 MG Q4H PRN PRN PO Hydralazine HCl 10 MG Q4H PRN PRN IV Ondansetron HCl 4 MG Q8H PRN PRN IV Nutrition assessment:The data set between the solid lines has been imported from the dietitian's assessment. Any exceptions have been noted under Provider comments. BMI Calculated: 28.9Nutrition related diagnosis: Nutrition diagnosis details: Nutrition problem: Nutrition etiology: Nutrition signs and symptoms: Nutrition prescription: Dietitian name: Assessment completed: Provider comments on imported dietitian assessment: Physical ExamGeneral appearance: alert, awake, orientedHead/Eyes: atraumatic, normal conjunctiva/sclera, PERRLENT: moist mucosal membranes, normal dentition, normal ear left, normal ear right, normal noseNeck: non-tender, normal thyroid, no JVD, no masses or swellingCardiovascular: normal capillary refill, normal heart sounds, regular rate rhythm, no murmurRespiratory: aerating well, clear to auscultation, symmetric expansion, no distressAbdomen: non-tender, normal bowel sounds, soft, no distention, no guarding, no hernia, no mass/organomegaly, no reboundExtremities: moves all, normal capillary refill, normal range of motion, no calftenderness, no clubbing, no cyanosis, no edemaMusculoskeletal: normal inspection, painless range of motion, no CVA tenderness,no muscle spasmNeuro/INDUSTRIAL SECURITY ANALYST: alert, oriented X 3, CNII-XII intact, normal speech, no motor deficits, no sensory deficitsSkin: dry, intact, normal color, normal temperature, no rash ResultsFindings/Data:Laboratory Tests 02/14 02/14 02/14 02/14 02/14 1300 0746 0729 0353 0353Chemistry Sodium (137 - 145 MMOL/L) 138 Potassium (3.5 - 5.1 MMOL/L) 3.9 Chloride (98 - 107 MMOL/L) 102 Carbon Dioxide (22 - 30 MMOL/L) 23 Anion Gap (14 - 24 MMOL/L) 17 BUN (7 - 17 MG/DL) 15 Creatinine (0.52 - 1.04 MG/DL) 0.60 Glomerular Filtr Rate > 60 Glucose (74 - 106 MG/DL) 136 H POC Glucose (60 - 99 MG/DL) 107 H 114 H Mean Blood Glucose (70 - 110 108MG/DL) Hemoglobin A1c (4.8 - 5.9 %) 5.4 Calcium (8.4 - 10.2 MG/DL) 9.6 Troponin I (0.012 - 0.033 NG/ML) 13.000 *H 8.620 *H Triglycerides (MG/DL) 131 Cholesterol (<200 MG/DL) 203 LDL Cholesterol Measurd (0 - 99 96MG/DL) HDL Cholesterol (40 - 59 MG/DL) 62 H 02/14 02/13 02/13 02/13 02/13 0100 2140 2140 2140 1913Chemistry POC Glucose (60 - 99 MG/DL) 86 Troponin I (0.012 - 0.033 NG/ML) 9.690 *H 7.940 *H Amylase (30 - 110 UNITS/L) 46 Lipase (23 - 300 UNITS/L) 61 TSH (0.465 - 4.68 MIU/L) < 0.015 L 02/13 02/13 1812 1812 Chemistry Sodium (137 - 145 MMOL/L) 140 Potassium (3.5 - 5.1 MMOL/L) 3.9 Chloride (98 - 107 MMOL/L) 103 Carbon Dioxide (22 - 30 MMOL/L) 28 BUN (7 - 17 MG/DL) 16 Creatinine (0.52 - 1.04 MG/DL) 0.60 Glomerular Filtr Rate > 60 Glucose (74 - 106 MG/DL) 100 Calcium (8.4 - 10.2 MG/DL) 9.7 Phosphorus (2.5 - 4.5 MG/DL) 3.9 Magnesium (1.6 - 2.3 MG/DL) 1.9 Total Bilirubin (0.2 - 1.3 MG/DL) 0.7 AST (14 - 36 UNITS/L) 33 ALT (<35 UNITS/L) 21 Total Alk Phosphatase (38 - 126 UNITS/L) 81 Troponin I (0.012 - 0.033 NG/ML) 0.901 *H Total Protein (6.3 - 8.2 G/DL) 8.4 H Albumin (3.5 - 5.0 G/DL) 4.9 LDL Cholesterol (100 - 129 mg/dL) 91 L Laboratory Tests 02/14 02/13 0353 1812 Hematology WBC (3.8 - 9.8 K/MM3) 11.0 H 7.4 RBC (3.58 - 4.97 M/MM3) 4.77 4.69 Hgb (11.2 - 14.9 G/DL) 12.0 11.9 Hct (33.2 - 43.5 %) 39.9 38.8 MCV (80.7 - 99.1 fL) 84 83 MCH (27.0 - 34.1 pg) 25.2 L 25.4 L MCHC (32.2 - 35.7 %) 30.1 L 30.7 L RDW (12.1 - 15.2 %) 15.5 H 15.7 H Plt Count (129 - 368 K/MM3) 299 231 MPV (7.4 - 10.4 fl) 11.4 H 10.5 H Neut % (Auto) (43 - 75 %) 76.4 H 65.9 Lymph % (Auto) (14 - 44 %) 18.6 25.6 Cavalier % (Auto) (4 - 13 %) 4.2 7.1 Eos % (Auto) (0 - 6 %) 0.0 0.5 Baso % (Auto) (0 - 2 %) 0.4 0.8 Neut # (Auto) (2.0 - 7.6 K/mm3) 8.39 H 4.84 Lymph # (Auto) (1.0 - 3.8 K/mm3) 2.04 1.88 Cavalier # (Auto) (0.1 - 0.8 K/mm3) 0.46 0.52 Eos # (Auto) (0.0 - 0.2 K/mm3) 0.00 0.04 Baso # (Auto) (0.0 - 0.2 K/mm3) 0.04 0.06 Immature Gran % (0.0 - 2.0 %) 0.4 0.1 Nucleated RBC % (0 - 1.0 %) 0.0 0.0 Nucleated RBCs # (Man) (0.0 - 0.1 K/mm3) 0.00 0.00 Laboratory Tests 02/14 1224 Toxicology Ur Barbiturates, Qual (NEGATIVE) NEGATIVE Ur Phencyclidine Scrn (NEGATIVE) NEGATIVE Ur Amphetamines Screen (NEGATIVE) NEGATIVE U Benzodiazepines Scrn (NEGATIVE) NEGATIVE Urine Cocaine Screen (NEGATIVE) NEGATIVE Urine Cannabinoids (NEGATIVE) NEGATIVE Laboratory Tests 02/14 1224 Urines Urine Color (YELLOW) YELLOW Urine Appearance (CLEAR) CLEAR Urine pH (5.0 - 9.0) 5.0 Ur Specific Hayden (1.003 - 1.030) 1.030 Urine Protein (NEGATIVE MG/DL) 15 Urine Glucose (UA) (NORMAL MG/DL) NORMAL Urine Ketones (NEGATIVE MG/DL) 15 H Urine Blood (NEGATIVE Vic/mm3) 10 H Urine Nitrite (NEGATIVE) NEGATIVE Urine Bilirubin (NEGATIVE MG/DL) NEGATIVE Urine Urobilinogen (NORMAL MG/DL) NORMAL Ur Leukocyte Esterase (NEGATIVE /mm3) NEGATIVE Urine RBC (0 - 3 RBC/HPF) 0-3 Urine WBC (0 - 5 WBC/HPF) 0-3 Ur Epithelial Cells (FEW EPI/HPF) FEW Urine Bacteria (NONE) FEW Urine Culture Screen (Culture Chk Criteria) NO, WBC<10 Radiology data:Recent Impressions:CAT SCAN - CT ABD PELVIS W/CONT 02/13 2249 Report Impression - Status: SIGNED Entered: 02/13/20212343 IMPRESSION: No acute findings in the abdomen or pelvis.Impression By: Betzy Cosme M.D.CAT SCAN - CTA CHEST 02/13 2249 Report Impression - Status: SIGNED Entered: 02/13/20212339 IMPRESSION: No evidence of pulmonary embolism, aortic aneurysm or dissection. Mild interstitial edema. Mild reactive or viral-like bilateral peribronchial thickening. Impression By: Betzy Cosme M.D. Diagnosis, Assessment PlanProblem List/A P: 1. NSTEMI (non-ST elevated myocardial infarction) 2. Afib 3. NEW ONSET HYPERTENSION 4. Hypothyroidism Consultants: cardiology Free Text DxA P NotesFree text DxA P notes:Maria M Thompson is a 55 y/o F w/ PMH afib s/p ablation, hypothyroid, PSH C2-C7 surgery s/p fall transferred from [place] [facility] for acute onset chest pain. Chest pain has worsened with new-onset radiation to neck on top of existing radiation to L arm. Significant elevation in troponin since arrival, although normal EKG, CXR. Chest pain continued to worsen significantly despite nitro paste/sublingual. Ddx NSTEMI vs unstable angina vs PE. Given elevated/rising trop + normal EKG + severe chest pain concerning for NSTEMI especially. No tachypnea, SOB sounds related to chest pain more so than pulm etiology. No hypoxia. #Atypical chest pain#Possible NSTEMI#ACS Deep aching L sided chest pain w/ radiation to L arm and neck, 03/23 worseningto 05/23 despite meds Normal EKG at ER, on telemetry Troponin 02/13 = 0.135 > 0.9 As per cardiology given high risk for ACS and no response thus far to nitro transfer to ICU for nitro dripPlan:Continue ASA 81 mg PO daily Received 325 loading 02/13 at ERContinue nitroglycerin 0.4 mg SL q5m PRNContinue nitroglycerin 0.5 in transderm [id number] O2 2L via NCContinue home metoprololBegin atorvastatin 40 mg PO dailyBegin lovenox 90 mg subQ BIDConsult cardiologyTransfer to ICU for further extensive management and nitroglycerin drip Consider PCI or other reperfusion as indicatedBegin tylenol 650 mg PO q4 PRN for pain #chronic afib#past cardiac ablation s/p cardiac ablation, well controlled at home No additional complications since ablationPlan:Continue metoprolol as aboveHold home flecainide 100 mg p75LQwdt home rivaroxaban 20 mg daily #New onset hypertension 160/100 at ER, decreased to 130/90, now back to 160/100 No PMH HTN, no HTN medications 2/2 acute onset pain vs cardiac etiologyPlan:Hydralazine 10 mg IV q6 PRN #SOB Mild SOB, sat 99% on 2L NC Likely 2/2 cardiac as abovePlan:O2 as above #Nausea New onset nausea, no vomiting thus far, able to tolerate PO medicationsPlan:Zofran 4 mg IV q8H PRN #Hypothyroid Well controlled at home, no sxPlan:TSH labContinue home liothyronine 5 mcg PO dailyContinue home levothyroxine 175 mcg PO daily #Prior C2-C7 surgery No current management indicated 7/4- pt off nitro drip this am. started on nitro patchBP is better controlled todaytrop trended up to 13. pt on and off have chest pain with nausea and vomiting. Seen and evaluated by Dr Banerjee. plan for [facility] todaywill continue with current mx asp, metoprolol, statin and full dose lovenoxTSH < 0.015. will check [facility] [place] Current MedicationsCurrent medication review:I attest that the foregoing medication list in the medical record is true, accurate, and complete to the best of my knowledge. VTE ProphylaxisVTE prophylaxis initiated: yes (Lovenox, therapeutic) at 1416 [facility] #:[id number] OF REPORTPRProgress Iggc6219-22-44A57:18:00Z.[id number] able for patient bxwwENATMPZLJXAPOR1444-30-57C50:28:29 [facility] 2021-02-14 12:32:00 [id number] fc9ZgWjxGQ0ugNmW3HATPG8IvEHR+ e3pe3Lhgcn7uV09aHkxLFiNoO8l0Bk3l8U0312-85-16L09:3 2:[id number] [address] PATIENT NAME: MARIA M THOMPSON ADMIT DATE: 02/14/21ACCOUNT NO: [id number] ROOM NO: Z.I14 AGE: 55 REPORT TYPE: ELECTROCARDIOGRAM SEX: F ADMITTING PHYSICIAN:Ana Rosa Guerrero MD ATTENDING PHYSICIAN:Ana Rosa Guerrero MD Order:[id number] Reason : NSTEMI Test Date/Time Stamp:Jodi Feb 14 2021 12:32:26Blood Pressure : / mmHGVent. Rate : 069 BPM Atrial Rate : 069 BPM P-R Int : 154 ms QRS Dur : 100 ms QT Int : 450 ms P-R-T Axes : 049 -04 052 degrees QTc Int : 482 ms Normal sinus rhythmIncomplete right bundle branch blockNonspecific ST abnormalityProlonged QTAbnormal ECGWhen compared with ECG of 14-FEB-2021 07:51,Nonspecific T wave abnormality, improved in Inferior leadsNonspecific T wave abnormality no longer evident in Lateral leadsConfirmed by JOLYNN KEYES ([id number]) on 02/14/2021 6:05:32 PM Referred By: Ana Rosa Guerrero Confirmed by:JOLYNN KEYES at 1805 PATIENT NAME: MARIA M THOMPSON .[id number] AVAvailable for patient uzshKVGSMRAYAWXIZT7183-77-29G78:05:44 [facility] 2021-02-14 12:08:00 [id number] 7thA9TBlnwQ7kbW4d49bWifCIBmxp H9xpdY1s7Pc4gYbug+Pf/NaNA6NTGe31as9371-13-06I00:0 8:[id number] [address] PATIENT NAME: MARIA M THOPMSON ADMIT DATE: 02/14/21ACCOUNT NO: [id number] ROOM NO: Z.I14 AGE: 55 REPORT TYPE: CARDIAC CATHETERIZATION REPORT SEX: F ADMITTING PHYSICIAN:Frederick Uriarte MD ATTENDING PHYSICIAN:Frederick Uriarte MD PROCEDURE DATE: 02/14/2021 PREPROCEDURE DIAGNOSES:1. Non-ST segment elevation myocardial infarction.2. Hyperlipidemia. POSTPROCEDURE DIAGNOSES:1. Non-ST segment elevation myocardial infarction.2. Hyperlipidemia. MINIATURE SET CONSTRUCTOR: Tony Banerjee MD ANESTHESIA: Local anesthesia with 1% lidocaine and moderate sedation. RECORDING STUDIO INTERN: None. PROCEDURE DETAILS: After informed consent was obtained explaining to thepatient the risks, benefits, and alternatives, the patient was brought to thecardiac catheterization lab in the fasting postabsorptive state. She wasprepped and draped in sterile fashion. Local anesthesia was applied over theright femoral artery with 1% lidocaine. Access to right femoral artery wasobtained using modified Seldinger technique with micropuncture kit andultrasound guidance. A 6-Monegasque sheath was advanced over a standard J-wire intothe right femoral artery. The sheath was aspirated and flushed. A 6-Monegasque MZ8gfbgrryu was advanced over the wire and engaged the left main coronary artery. Multiple views of left coronary system were obtained. The JL4 catheter wasexchanged for a 6-Monegasque JR4 catheter, which was advanced over the wire andengaged the right coronary artery. Multiple views of the right coronary systemwere obtained. The JR4 catheter was exchanged for a 6-Monegasque pigtail catheter,which was advanced over the wire and crossed the aortic valve. Left ventricularpressures were measured and recorded. Left ventriculogram was obtained. Thepigtail catheter was reconnected to the pressure transducer and withdrawn overthe aortic valve. Left ventricular aortic pressures were measured and recorded. The pigtail catheter was removed. The sheath was aspirated and flushed. Aright femoral arteriogram was obtained via the sheath. After confirmation ofadequate placement of the sheath, a 6-Monegasque Angio-Seal device was deployedwithout complication. The patient tolerated the procedure well with nocomplications. FINDINGS:1. Left main -- no significant disease.2. Left anterior descending -- no significant disease. PATIENT NAME: MARIA M THOMPSON 3. Left circumflex -- no significant disease.4. First obtuse marginal -- there is a mild proximal plaque noted with somemild haziness.5. Right coronary artery -- large dominant vessel that gives off posterolateralbranches as well as the posterior descending artery. There is no significantdisease noted. LEFT VENTRICULOGRAM: Overall, ejection fraction approximately 55%. Aortic pressure 120/82. Left ventricular pressure 122 with an end-diastolic pressure of 19. CONCLUSIONS:1. Mild haziness in the first obtuse marginal with mild plaque. Otherwise, noobstructive coronary artery disease. The first obtuse marginal is patent.2. Normal left ventricular systolic function. ESTIMATED BLOOD LOSS: 3 mL. COMPLICATIONS: No complications. PLAN: Medical therapy. Dictated By: Tony Banerjee MD WT: CATH:SURAJ/PEPGR/NTSDD: 02/14/2021 12:08:17DT: 02/14/2021 12:28:22Conf#: [id number]/DID#: [id number] cc: Jolynn Keyes MD Authenticated by Tony Banerjee MD On 02/17/2021 06:24:47 AM at 0625 PATIENT NAME: MARIA M THOMPSON Knkv2415-35-46I93:28:00Z.[id number] ble for patient nhprUYSBNVBCLZTVOX7509-78-79N18:25:28 [facility] 2021-02-14 09:44:00 [id number] YR2QzN4ShyXznmQU9/li9Pk0oA7R2 Yql1TtjgEtbVGqWODrhURb0ga/liB09zBF1152-70-36M56:4 4:495795-[address] [address] PATIENT NAME: MARIA M THOMPSON ADMIT DATE: 02/13/21ACCOUNT NO: [id number] ROOM NO: Z.I14 AGE: 55 REPORT TYPE: ECHOCARDIOGRAM SEX: F ADMITTING PHYSICIAN:Ana Rosa Guerrero MD ATTENDING PHYSICIAN:Ana Rosa Guerrero MD *[facility]*[address] [place], [place] [id number] Transthoracic Echocardiogram Patient: Jocelyn Thompson Date: 02/13/2021 BP: 160 / 88 Location: COCWUURN: [id number] : 1965 Age: 55 Height: 71 in / 180.3 cmAccession#: [id number] Gender: F Weight: 207 lb / 94.1 kgBMI/BSA: 28.9 kg/m 2 / 2.19 m 2 *Ordering Physician: * Tony Banerjee MD *Interpreting Physician: * Jolynn Keyes MD*[facility]: * Jace VELAZQUEZ, [facility], RVS Indications: Chest Pain, unspecified. Study data: Transthoracic echocardiogram. Procedure: Transthoracicechocardiography was performed. Images were obtained using a bookjam cardiacultrasound machine. Image quality was adequate. M-mode, complete 2D,complete spectral Doppler, and color Doppler. Location: Bedside.Patient status: Inpatient. Patient room number: 356-A. Study status:Routine. Findings Left ventricle: The cavity size is mildly dilated. There is nohypertrophy. Systolic function is normal. The estimated ejectionfraction is 60-64%. Wall motion is normal; there are no regional wallmotion abnormalities. Pulmonary venous flow is not recorded. The tissueDoppler parameters are normal. Left ventricular diastolic function PATIENT NAME: MARIA M THOMPSON parameters are normal.Right ventricle: The cavity size is normal. Systolic function isnormal. Systolic pressure is mildly increased which is suggestive ofmild pulmonary hypertension.Ventricular septum: The ventricular septum is normal.Left atrium: The atrium is normal in size.Right atrium: Not well visualized. The atrium is at the upper limits ofnormal in size.Atrial septum: No defect or patent foramen ovale is identified.Aorta: Aortic arch: The aortic arch is not visualized.Abdominal aorta: The abdominal aorta is poorly visualized and normal.Aortic valve: The valve is trileaflet. The leaflets are mildlythickened. There is no evidence of stenosis. There is trivialregurgitation.Mitral valve: The leaflets are mildly thickened. There is no evidenceof stenosis. There is mild to moderate regurgitation.Tricuspid valve: Not well visualized. The leaflets are normalthickness. There is mild regurgitation.Pulmonic valve: Not well visualized. There is trivial regurgitation.Pericardium: There is no pericardial effusion.Systemic veins:Inferior vena cava: The vessel is normal in size. Measurements Left ventricle Value Ref MIKE, LAX 6.2 cm 3.8 - 5.2 ESD, LAX 4.2 cm 2.2 - 3.5 ESD/bsa, LAX 1.9 cm/m 2 1.3 - 2.1 FS, LAX 33 % 27 - 45 PW, ED 0.7 cm 0.6 - 0.9 PW, ES 1.3 cm --------- IVS/PW, ED 1.13 --------- EF 60 % 54 - 74 LVOT Value Ref Diam, S 2.00 cm --------- Area 3.1 cm 2 --------- Peak ernesto, S 1.1 m/sec --------- Mean ernesto, S 0.69 m/sec --------- VTI, S 26.7 cm --------- Peak grad, S 5 mm Hg --------- Mean grad, S 2 mm Hg --------- SV 84 ml --------- Qs 5.65 L/min --------- Qs/bsa 2.6 L/(min-m 2) --------- SV/bsa 38 ml/m 2 --------- Ventricular septum Value Ref IVS, ED 0.8 cm 0.6 - 0.9 IVS, ES 1.3 cm --------- Right ventricle Value Ref PATIENT NAME: MARIA M THOMPSON MIKE, LAX 2.5 cm --------- Pressure, S 46 mm Hg --------- S' lateral 13.0 cm/sec 6.0 - 13.4 RVOT Value Ref Peak v, S 0.67 m/sec --------- Peak grad, S 2 mm Hg --------- Left atrium Value Ref AP dim, ES 3.64 cm 2.70 - 3.80 Aortic valve Value Ref Leaflet sep, MM 2.02 cm --------- Peak v, S 1.1 m/sec --------- Mean v, S 0.72 m/sec --------- VTI, S 25.2 cm --------- Mean grad, S 2.4 mm Hg --------- Peak grad, S 4.8 mm Hg --------- LVOT/AV, VTI 1.06 --------- ratio JET, VTI 3.31 cm 2 --------- LVOT/AV, Vpeak 1 --------- ratio JET, Vmax 3.14 cm 2 --------- AR peak v 1.73 m/sec --------- AR peak grad 12 mm Hg --------- Mitral valve Value Ref Peak E 1.09 m/sec --------- Peak A 0.72 m/sec --------- Mean v, D 0.86 m/sec --------- VTI leaflet 37.9 cm --------- coapt Decel time 263 ms --------- Mean grad, D 3.2 mm Hg --------- Peak grad, D 8.5 mm Hg --------- Peak E/A ratio 1.52 --------- MR peak v 5.55 m/sec --------- Pulmonic valve Value Ref NE v, ED 0.68 m/sec --------- Tricuspid valve Value Ref TR peak v 2.99 m/sec <=2.8 Peak RV-RA grad, 36 mm Hg --------- S Aortic root Value Ref Root diam, ED MM 3.26 cm --------- Pulmonary artery Value Ref Pressure, S 42.8 mm Hg --------- PATIENT NAME: MARIA M THOMPSON Systemic veins Value Ref Estimated CVP 10 mm Hg --------- Conclusions Summary: 1. Left ventricle: The cavity size is mildly dilated. Systolic function is normal. The estimated ejection fraction is 60-64%. Wall motion is normal; there are no regional wall motion abnormalities. Left ventricular diastolic function parameters are normal.2. Right ventricle: Systolic pressure is mildly increased which is suggestive of mild pulmonary hypertension. The RV pressure during systole by Doppler is 46 mm Hg.3. Mitral valve: There is mild to moderate regurgitation. Prepared and electronically signed by Jolynn Keyes MD02/14/2021 09:44 at 0945 PATIENT NAME: MARIA M THOMPSON :44:0 0Z.[id number] for patient zgapKIDCFYXMWEZEQA1257-40-07V65:45:14 [facility] 2021-02-14 07:51:00 XEffxskkenv32584128i SYSAsghOe67FXvOqTfa/EvrPpp4eT DBFq6lzC7HYo6vXyuRUoTmjqRJbi223TwN6643-88-95Z58:5 1:204973-[address] [address] PATIENT NAME: MARIA M THOMPSON ADMIT DATE: 02/13/21ACCOUNT NO: [id number] ROOM NO: Z.I14 AGE: 55 REPORT TYPE: ELECTROCARDIOGRAM SEX: F ADMITTING PHYSICIAN:Ana Rosa Guerrero MD ATTENDING PHYSICIAN:Ana Rosa Guerrero MD Order:[id number] Reason : CHEST PAIN Test Date/Time Stamp:Mears Feb 14 2021 07:51:43Blood Pressure : / mmHGVent. Rate : 066 BPM Atrial Rate : 066 BPM P-R Int : 154 ms QRS Dur : 098 ms QT Int : 462 ms P-R-T Axes : 000 -24 143 degrees QTc Int : 484 ms Normal sinus rhythmIncomplete right bundle branch blockNonspecific ST and T wave abnormalityProlonged QTAbnormal ECGWhen compared with ECG of 13-FEB-2021 19:46, (Unconfirmed)Nonspecific T wave abnormality now evident in Inferior leadsT wave inversion no longer evident in Anterior leadsQT has lengthenedConfirmed by MD LOBITO, JHONY DELGADO ([id number]) on 02/14/2021 9:36:25 AM Referred By: Ana Rosa Gurerero Confirmed by:JHONY CLAROS MD at 0936 PATIENT NAME: MARIA M THOMPSON .[id number] AVAvailable for patient dduiMCVXFEBDIJFLER6480-41-15P19:36:52 [facility] 2021-02-14 07:51:00 [id number] sYc14XXB1tL5lUJ8FVZTsdG6vvdFL DYFRp5qVcj2qHRMAHPgdESkmemNsSjgln30981-98-75U91:5 1:931407-1645 [place] [id number] PATIENT NAME: MARIA M THOMPSON ADMIT DATE: 02/13/21ACCOUNT NO: [id number] ROOM NO: Z.I14 AGE: 55 REPORT TYPE: ELECTROCARDIOGRAM SEX: F ADMITTING PHYSICIAN:Ana Rosa Guerrero MD ATTENDING PHYSICIAN:Ana Rosa Guerrero MD Order:[id number] Reason : CHEST PAIN Test Date/Time Stamp:MonFeb 14 2021 07:51:43Blood Pressure : / mmHGVent. Rate : 066 BPM Atrial Rate : 066 BPM P-R Int : 154 ms QRS Dur : 098 ms QT Int : 462 ms P-R-T Axes : 000 -24 143 degrees QTc Int : 484 ms Normal sinus rhythmIncomplete right bundle branch blockNonspecific ST and T wave abnormalityProlonged QTAbnormal ECGWhen compared with ECG of 13-FEB-2021 19:46,Nonspecific T wave abnormality now evident in Inferior leadsT wave inversion no longer evident in Anterior leadsQT has lengthenedReconfirmed by JOLYNN KEYES ([id number]) on 02/14/2021 9:48:52 AM Referred By: Ana Rosa Guerrero Confirmed by:JOLYNN KEYES at 0949 PATIENT NAME: MARIA M THOMPSON .[id number] AVAvailable for patient ecugGKSXMCDHHGLRTY2126-00-50W71:49:16 [facility] 2021-02-14 07:49:00 HRaqxlkcilv79285464J J/qA2YGoQzrlOgTVeCowsRatZhMeP erhl7B9QoRFcnT664lAyU9JubB2qvjfD+50598-04-48E90:4 9:270481-[address] [address] PATIENT NAME: MARIA M THOMPSON ADMIT DATE: 02/14/21ACCOUNT NO: [id number] ROOM NO: Z.I14 AGE: 55 REPORT TYPE: CONSULTATION REPORT SEX: F ADMITTING PHYSICIAN:Frederick Uriarte MD ATTENDING PHYSICIAN:Frederick Uriarte MD CONSULTATION DATE: 02/14/2021 CONSULTING PHYSICIAN: Tony Banerjee MD REFERRING PHYSICIAN: Ana Rosa Guerrero MD. REASON FOR CONSULTATION: I was asked to evaluate this patient for chest pain. HISTORY OF PRESENT ILLNESS: This is a 55-year-old female with history ofparoxysmal atrial fibrillation who presented to outside Emergency Room yesterdaywith complaints of chest pain. The pain began at approximately 11:00 a.m. Shedescribed a dull type pain with tingling in the shoulder. The discomfort was inthe left precordial area radiating to the neck. There were no complaints ofnausea or vomiting. She presented to the outside ER and was transferred here byEMS. She had 10/10, but the pain is primarily resolved now with medicaltreatment. She has had no prior history of coronary artery disease. PAST MEDICAL HISTORY:1. Paroxysmal atrial fibrillation.2. Hyperlipidemia.3. Hypothyroidism.4. Hypertension. FAMILY HISTORY: Positive for coronary artery disease in her father. SOCIAL HISTORY: No tobacco. No alcohol. ALLERGIES: SULFA. HOME MEDICATIONS: Tamsulosin 0.4 mg daily, Xarelto 20 mg daily, flecainide 100mg every 12 hours, metoprolol succinate XL 50 mg twice daily, levothyroxine 175mcg daily, liothyronine 5 mcg daily, atorvastatin 40 mg daily. REVIEW OF SYSTEMS:CONSTITUTIONAL: No complaints of fever or chills.HEENT: No complaints of headache. No complaints of blurred vision.RESPIRATORY: No complaints of shortness of breath.CARDIOVASCULAR: Chest discomfort as noted. No complaints of palpitations.GASTROINTESTINAL: No complaints of nausea or vomiting.GENITOURINARY: No complaints of urinary frequency or dysuria.MUSCULOSKELETAL: No complaints of joint pain.SKIN: No complaints of skin rash. PATIENT NAME: MARIA M THOMPSON NEUROLOGIC: No complaints of focal weakness. PHYSICAL EXAMINATION:GENERAL: Well-nourished female in no acute distress.VITAL SIGNS: Temperature 97.4, blood pressure 114/67, pulse 58, respiratoryrate 17, and O2 saturations 94%.HEENT: Atraumatic, normocephalic.RESPIRATORY: Normal effort.LUNGS: Clear to auscultation bilaterally.CARDIOVASCULAR: Normal S1 and S2. No S3 or S4.NECK: JVP is normal. No carotid bruits.EXTREMITIES: No edema.NEUROLOGIC: Cranial nerves II through XII are intact. No focal motor deficitsnoted. LABORATORY DATA: White blood cell count 11, hemoglobin 12, and platelets 299. Sodium 138, potassium 3, chloride 102, CO2 of 23, BUN 17, creatinine 0.6,glucose 136. Hemoglobin A1c 5.4. Troponin I are 0.91, 7.9, 9.6, 8.6. DIAGNOSTIC DATA: CTA of the chest no evidence of pulmonary embolism, no aorticaneurysm or dissection, mild interstitial edema. CT of the abdomen and pelvisno acute findings. Electrocardiogram normal sinus rhythm, nonspecific T-wave abnormality, noevidence of ST elevation. IMPRESSION:1. Idd-WA-pannzsr elevation myocardial infarction. Symptoms are controllednow. She remains hemodynamically stable. She has been hemodynamically stableovernight.2. Paroxysmal atrial fibrillation.3. Hyperlipidemia.4. Hypothyroidism.5. Hypertension. PLAN: Continue medical therapy with Lovenox, aspirin, nitroglycerin. Plancoronary angiography. Dictated By: Tony Banerjee MD WT: CON:WILLIS/JOCELYN/NTSDD: 02/14/2021 07:49:08DT: 02/14/2021 09:08:45Conf#: [id number]/DID#: [id number] Authenticated by Tony Banerjee MD On 02/17/2021 06:24:33 AM at 0624 PATIENT NAME: MARIA M THOMPSON :08:00[facility] [id number] for patient zjpzBNCAJJWRPXOZWE2083-72-75I90:25:18 [facility] 2021-02-14 06:51:00 [id number] uNbqpVBpqIaO8c1MCO5FAWGZpHLb+ JyHAXKQT2NYvAtXn8fg7mvnAWix9d+iAJU0294-31-54Z23:5 1:00 [facility] ([facility])Critical Care Progress NoteREPORT#:[id number] REPORT STATUS: SignedDATE:02/14/21 TIME: 06 PATIENT: MARIA M THOMPSON UNIT #: [id number]#: [id number] [facility] AGE: 55 SEX: F ATTEND: Ana Rosa Guerrero [facility] AUTHOR: Bhavik Summers MD * ALL edits or amendments must be made on the electronic/computer document * SubjectiveChief complaint:Unstable anginaHPI:Patient seen and examined this a.m. overnight patient was having difficulty withchest pain despite being on nitroglycerin drip. Pain controlled with the use ofmorphine per pain scale. Maximum troponin 9.69. Last troponin 8.62 and downtrending. Patient resting comfortably now, with chest pain less. Denies severe shortness of breath. Denies any abdominal pain. Objective GeneralVS/I OLast Documented: Result Date Time Pulse Ox 94 02/14 0645 B/P 114/67 02/14 0645 B/P Mean 85 02/14 0645 Pulse 58 02/14 0645 Resp 17 02/14 0645 Temp 36.3 02/14 0400 O2 Delivery Room air 02/14 2048 24 hour I O ending at 0700: 02/14 0700 02/13 1900 Intake Total 3.00 Output Total Balance 3.00 Intake, IV 3.00 Number Voids 2 Patient 94.09 kg Weight Weight Stated/Reported Measurement Method PATIENT WEIGHT: Weight (lb): 207Weight (oz): 6.93Weight (kg): 94.090 Medications:Active Meds + DC'd Last 24 HrsAspirin 81 MG DAILY PO Liothyronine Sodium 5 MCG DAILY PO Pantoprazole 40 MG Q12HR IV Morphine Sulfate 1 MG Q4H PRN PRN IV Morphine Sulfate 2 MG Q4H PRN PRN IV Levothyroxine Sodium 100 MCG 0630 PO Levothyroxine Sodium 75 MCG 0630 PO Morphine Sulfate 4 MG Q4H PRN PRN IV (DC) Morphine Sulfate 6 MG Q4H PRN PRN IV (DC) Mupirocin 1 APPLIC BID NASAL Nitroglycerin 0.5 INCH Q6HR TRANSDERM (DC) Al Hydrox/Mg Hydrox/Simethicone 30 ML ONCE ONE PO (DC) Lidocaine HCl 15 ML ONCE ONE PO (DC) Iopamidol 0 .STK-MED ONE IV (DC) Lorazepam 2 MG NOW ONE IV (DC) Multi-Ingredient GI Drug 50 ML STAT STA PO (CAN) Morphine Sulfate 6 MG NOW ONE IV (DC) Nitroglycerin/Dextrose 250 ML ASDIR IV Nitroglycerin/Dextrose 250 ML ASDIR IV (DC) Atorvastatin Calcium 40 MG BEDTIME PO Enoxaparin Sodium 90 MG Q12HR SUBQ Insulin Human Lispro LOW DOSE SLIDING SCALE AC HS SUBQ Metoprolol Succinate 50 MG BID PO Nitroglycerin 0.4 MG Q5M PRN PRN SL Nitroglycerin 0.5 INCH Q6HR TRANSDERM (DC) Enoxaparin Sodium 40 MG 1800 SUBQ (DC) Dextrose/Water 12.5 GM ASDIR PRN IV Dextrose/Water 25 GM ASDIR PRN IV Acetaminophen 650 MG Q4H PRN PRN PO Hydralazine HCl 10 MG Q4H PRN PRN IV Ondansetron HCl 4 MG Q8H PRN PRN IV Physical ExamGeneral appearance: alert, awake, pleasant, mental status normal, no respiratorydistressHead/eyes: atraumatic, clear corneaENT: moist mucosal membranesNeck: no JVD, no masses or swellingCardiovascular: normal capillary refill, normal heart sounds, regular rate and rhythm, normal S1/S2, no ectopyRespiratory: aerating well, clear to auscultation, symmetric expansionAbdomen: soft, non-tenderNeuro/INDUSTRIAL SECURITY ANALYST: alert, oriented X 3, CNII-XII intact, normal speechSkin: dry, intact, normal color, normal temperaturePsychiatry: normal affect, normal judgment/insight, normal mood, not homicidal, not suicidal, no hallucinations ResultsFindings/data:Laboratory Tests 02/14 02/14 02/14 02/14 02/13 0746 0353 0353 0100 2140Chemistry Sodium (137 - 145 MMOL/L) 138 Potassium (3.5 - 5.1 MMOL/L) 3.9 Chloride (98 - 107 MMOL/L) 102 Carbon Dioxide (22 - 30 MMOL/L) 23 Anion Gap (14 - 24 MMOL/L) 17 BUN (7 - 17 MG/DL) 15 Creatinine (0.52 - 1.04 MG/DL) 0.60 Glomerular Filtr Rate > 60 Glucose (74 - 106 MG/DL) 136 H POC Glucose (60 - 99 MG/DL) 114 H Mean Blood Glucose (70 - 110 108MG/DL) Hemoglobin A1c (4.8 - 5.9 %) 5.4 Calcium (8.4 - 10.2 MG/DL) 9.6 Troponin I (0.012 - 0.033 NG/ML) 8.620 *H 9.690 *H 7.940 *H Triglycerides (MG/DL) 131 Cholesterol (<200 MG/DL) 203 LDL Cholesterol Measurd (0 - 99 96MG/DL) HDL Cholesterol (40 - 59 MG/DL) 62 H 02/13 02/13 02/13 02/13 02/13 2140 2140 1913 1812 1812Chemistry Sodium (137 - 145 MMOL/L) 140 Potassium (3.5 - 5.1 MMOL/L) 3.9 Chloride (98 - 107 MMOL/L) 103 Carbon Dioxide (22 - 30 MMOL/L) 28 BUN (7 - 17 MG/DL) 16 Creatinine (0.52 - 1.04 MG/DL) 0.60 Glomerular Filtr Rate > 60 Glucose (74 - 106 MG/DL) 100 POC Glucose (60 - 99 MG/DL) 86 Calcium (8.4 - 10.2 MG/DL) 9.7 Phosphorus (2.5 - 4.5 MG/DL) 3.9 Magnesium (1.6 - 2.3 MG/DL) 1.9 Total Bilirubin (0.2 - 1.3 MG/DL) 0.7 AST (14 - 36 UNITS/L) 33 ALT (<35 UNITS/L) 21 Total Alk Phosphatase (38 - 126 81UNITS/L) Troponin I (0.012 - 0.033 NG/ML) 0.901 *H Total Protein (6.3 - 8.2 G/DL) 8.4 H Albumin (3.5 - 5.0 G/DL) 4.9 LDL Cholesterol (100 - 129 mg/dL) 91 L Amylase (30 - 110 UNITS/L) 46 Lipase (23 - 300 UNITS/L) 61 TSH (0.465 - 4.68 MIU/L) < 0.015 L Laboratory Tests 02/14 02/13 0353 1812 Hematology WBC (3.8 - 9.8 K/MM3) 11.0 H 7.4 RBC (3.58 - 4.97 M/MM3) 4.77 4.69 Hgb (11.2 - 14.9 G/DL) 12.0 11.9 Hct (33.2 - 43.5 %) 39.9 38.8 MCV (80.7 - 99.1 fL) 84 83 MCH (27.0 - 34.1 pg) 25.2 L 25.4 L MCHC (32.2 - 35.7 %) 30.1 L 30.7 L RDW (12.1 - 15.2 %) 15.5 H 15.7 H Plt Count (129 - 368 K/MM3) 299 231 MPV (7.4 - 10.4 fl) 11.4 H 10.5 H Neut % (Auto) (43 - 75 %) 76.4 H 65.9 Lymph % (Auto) (14 - 44 %) 18.6 25.6 Cavalier % (Auto) (4 - 13 %) 4.2 7.1 Eos % (Auto) (0 - 6 %) 0.0 0.5 Baso % (Auto) (0 - 2 %) 0.4 0.8 Neut # (Auto) (2.0 - 7.6 K/mm3) 8.39 H 4.84 Lymph # (Auto) (1.0 - 3.8 K/mm3) 2.04 1.88 Cavalier # (Auto) (0.1 - 0.8 K/mm3) 0.46 0.52 Eos # (Auto) (0.0 - 0.2 K/mm3) 0.00 0.04 Baso # (Auto) (0.0 - 0.2 K/mm3) 0.04 0.06 Immature Gran % (0.0 - 2.0 %) 0.4 0.1 Nucleated RBC % (0 - 1.0 %) 0.0 0.0 Nucleated RBCs # (Man) (0.0 - 0.1 K/mm3) 0.00 0.00 Laboratory Tests 02/14/21 0353:[Embedded Image Not Available] 02/13/21 1812:[Embedded Image Not Available] Radiology dataRecent Impressions:CAT SCAN - CT ABD PELVIS W/CONT 02/13 2249 Report Impression - Status: SIGNED Entered: 02/13/2021 2344 IMPRESSION: No acute findings in the abdomen or pelvis.Impression By: Betzy Cosme M.D.CAT SCAN - CTA CHEST 02/13 6724 Report Impression - Status: SIGNED Entered: 02/13/2021 2340 IMPRESSION: No evidence of pulmonary embolism, aortic aneurysm or dissection. Mild interstitial edema. Mild reactive or viral-like bilateral peribronchial thickening. Impression By: Betzy Cosme M.D. Results: labs reviewed, vital signs stable, x-ray personally reviewed, current med profile rev'd Diagnosis, Assessment PlanFree text A P:Level of care: ICUCODE STATUS: Full code Clinical impression/recommendation; 1. Acute coronary syndrome-unstable angina -CHRIST risk score for unstable angina is a 4, which per the CHRIST study group [id number]% risk at 14 days of all-cause mortality, ID, or severe recurrent ischemia requiring urgent revascularization. -Patient currently on nitroglycerin drip to decrease myocardial oxygen demand -Therapeutic Lovenox/ASA/Lipitor/metoprolol -Telemetry monitoring -Cardiology following patient and further management per the recommendations 2. Hypothyroidism -Resume home levothyroxine DVT prophylax: LovenoxGIB prophylaxis: Protonix Patient remained stable at this time. Management of unstable angina per cardiology. Primary team also following patient. At this time critical care medicine will sign off. If any concerns or questions arise please refer to contact us.Consultants: cardiology at [facility] #:[id number] OF REPORTPRProgress Cdfa8822-49-52V14:51:00Z.XWDX66011976-9466TWUsofk able for patient wsjkBNKBMAWCZSVJCW2093-06-33S09:52:17 [facility] 2021-02-13 22:34:00 [id number] DXqOiZSsLMYKjSdHF3H2vCteu2Rcj MPZRVziGcWC03mfrbjm55qmQenkuDuHKyz3241-15-47V76:3 4:00 [facility] ([facility])Critical Care Consult NoteREPORT#:[id number] REPORT STATUS: SignedDATE:02/13/21 TIME: 2233 PATIENT: MARIA M THOMPSON UNIT #: [id number]#: [id number] ROOM/BED: Z.T61-HCMM: 67 AGE: 55 SEX: F ATTEND: Ana Rosa Guerrero MDA AUTHOR: Bhavik Summers MD * ALL edits or amendments must be made on the electronic/computer document * History of Present Illness HPIRequesting clinician: Dr. Ugarte for consult:Management of nitro infusionChief complaint:Chest painPCP:PCP: Hans Christiansen MD HPI:Mrs. Thompson is a 55-year-old woman with a past medical history of atrial fibrillation status post radiofrequency ablation, hypothyroidism, chronic cervical pain secondary to cervical spine surgery, who was at her counselor's office this morning when she developed acute chest pain. She went initially home and took her metoprolol and flecainide without any resolution of pain. At this point her took her to the emergency room for further evaluation in [facility]. In the emergency room her EKGs showed no acute ST segment changes. Patient did have troponin of 0.135. Upon transfer to [facility], patient's chest pain remained persistent at 8 out of 10 to 10 out of 10 pain. Cardiology consulted and noted the patient needs to be placed on a nitroglycerin drip. As such patient was transferred to the intensive care unit for continuous nitroglycerin infusion. Critical care medicine was consulted forassistance in the management of the nitro glycerin infusion. History - Adult longitudinalFamily history:Reports: Heart disease (Father w/ implanted defib). Allergies:Coded Allergies:Sulfa (Sulfonamide Antibiotics) (HIVES 11/19/19) Review of Systems ROSConstitutional:Reports: fatigue. Skin:Denies: abrasion, bruising, contusion, diaphoresis, ecchymosis, itching, laceration, rash, swelling, other. Eyes:Denies: redness, discharge, visual loss/blurred, itching, diplopia, eye pain, photophobia, swelling, other. ENT:Denies: ear drainage, ear ringing, earache, hearing loss, mouth pain, nasal congestion, nose bleeding, sinus problem, sore throat, throat pain, throat swelling, tongue pain, tongue swelling, toothache, voice change, other. Respiratory:Reports: LANDRUM (dyspnea on exertion), pleuritic pain. Cardiovascular:Reports: chest pain. GI:Denies: abdominal pain. Neuro:Denies: bladder dysfunction, bowel dysfunction, change in LOC, confusion, dizziness, focal weakness, gait problem, headache, lightheaded, numbness, seizure, slurred speech, spinning sensation, syncope, unable to speak, vision change, weakness, other. Psych:Denies: agitation, anxiety, auditory hallucination, change in mental status, confusion, delusional, depression, homicidal ideation, hostile, insomnia, stress, suicidal ideation, visual hallucination, other. Objective Physical ExamVS/I O:Last Documented: Result Date Time Pulse Ox 91 02/14 0500 B/P 128/77 02/14 0500 B/P Mean 97 02/14 0500 Pulse 77 02/14 0500 Resp 20 02/14 0500 Temp 36.4 02/14 0000 O2 Delivery Room air 02/14 2048 24 hour I O ending at 0700: 02/14 0700 02/13 1900 Intake Total 3.00 Output Total Balance 3.00 Intake, IV 3.00 Number Voids 2 Patient 94.09 kg Weight Weight Stated/Reported Measurement Method Patient Weight and BMI Weight (kg): 94.090 BMI: 28.9 Medications:Active Meds + DC'd Last 24 HrsAspirin 81 MG DAILY PO Liothyronine Sodium 5 MCG DAILY PO Levothyroxine Sodium 100 MCG 0630 PO Levothyroxine Sodium 75 MCG 0630 PO Morphine Sulfate 4 MG Q4H PRN PRN IV Morphine Sulfate 6 MG Q4H PRN PRN IV Mupirocin 1 APPLIC BID NASAL Nitroglycerin 0.5 INCH Q6HR TRANSDERM (DC) Al Hydrox/Mg Hydrox/Simethicone 30 ML ONCE ONE PO (DC) Lidocaine HCl 15 ML ONCE ONE PO (DC) Iopamidol 0 .STK-MED ONE IV (DC) Lorazepam 2 MG NOW ONE IV (DC) Multi-Ingredient GI Drug 50 ML STAT STA PO (CAN) Morphine Sulfate 6 MG NOW ONE IV (DC) Nitroglycerin/Dextrose 250 ML ASDIR IV Nitroglycerin/Dextrose 250 ML ASDIR IV (DC) Atorvastatin Calcium 40 MG BEDTIME PO Enoxaparin Sodium 90 MG Q12HR SUBQ Insulin Human Lispro LOW DOSE SLIDING SCALE AC HS SUBQ Metoprolol Succinate 50 MG BID PO Nitroglycerin 0.4 MG Q5M PRN PRN SL Nitroglycerin 0.5 INCH Q6HR TRANSDERM (DC) Enoxaparin Sodium 40 MG 1800 SUBQ (DC) Dextrose/Water 12.5 GM ASDIR PRN IV Dextrose/Water 25 GM ASDIR PRN IV Acetaminophen 650 MG Q4H PRN PRN PO Hydralazine HCl 10 MG Q4H PRN PRN IV Ondansetron HCl 4 MG Q8H PRN PRN IV General appearance: alert, awake, orientedHead/Eyes: atraumatic, clear corneaENT: moist mucosal membranesNeck: no JVD, no masses or swellingCardiovascular: normal capillary refill, normal heart sounds, regular rate and rhythm, normal S1/S2, no ectopyRespiratory: aerating well, clear to auscultation, symmetric expansionAbdomen: soft, non-tenderNeuro/INDUSTRIAL SECURITY ANALYST: alert, oriented X 3, CNII-XII intact, normal speechSkin: dry, intact, normal color, normal temperaturePsychiatry: normal affect, normal judgment/insight, normal mood, not homicidal, not suicidal, no hallucinations ResultsFindings/Data:Laboratory Tests 02/14/21 0353:[Embedded Image Not Available] 02/13/21 1812:[Embedded Image Not Available]Laboratory Tests 02/14 02/14 02/13 02/13 0353 0100 2140 2140Chemistry Sodium (137 - 145 MMOL/L) 138 Potassium (3.5 - 5.1 MMOL/L) 3.9 Chloride (98 - 107 MMOL/L) 102 Carbon Dioxide (22 - 30 MMOL/L) 23 Anion Gap (14 - 24 MMOL/L) 17 BUN (7 - 17 MG/DL) 15 Creatinine (0.52 - 1.04 MG/DL) 0.60 Glomerular Filtr Rate > 60 Glucose (74 - 106 MG/DL) 136 H Calcium (8.4 - 10.2 MG/DL) 9.6 Troponin I (0.012 - 0.033 NG/ML) 8.620 *H 9.690 *H 7.940 *H Triglycerides (MG/DL) 131 Cholesterol (<200 MG/DL) 203 LDL Cholesterol Measurd (0 - 99 96MG/DL) HDL Cholesterol (40 - 59 MG/DL) 62 H TSH (0.465 - 4.68 MIU/L) < 0.015 L 02/13 181 Chemistry Sodium (137 - 145 MMOL/L) 140 Potassium (3.5 - 5.1 MMOL/L) 3.9 Chloride (98 - 107 MMOL/L) 103 Carbon Dioxide (22 - 30 MMOL/L) 28 BUN (7 - 17 MG/DL) 16 Creatinine (0.52 - 1.04 MG/DL) 0.60 Glomerular Filtr Rate > 60 Glucose (74 - 106 MG/DL) 100 POC Glucose (60 - 99 MG/DL) 86 Calcium (8.4 - 10.2 MG/DL) 9.7 Phosphorus (2.5 - 4.5 MG/DL) 3.9 Magnesium (1.6 - 2.3 MG/DL) 1.9 Total Bilirubin (0.2 - 1.3 MG/DL) 0.7 AST (14 - 36 UNITS/L) 33 ALT (<35 UNITS/L) 21 Total Alk Phosphatase (38 - 126 UNITS/L) 81 Troponin I (0.012 - 0.033 NG/ML) 0.901 *H Total Protein (6.3 - 8.2 G/DL) 8.4 H Albumin (3.5 - 5.0 G/DL) 4.9 LDL Cholesterol (100 - 129 mg/dL) 91 L Amylase (30 - 110 UNITS/L) 46 Lipase (23 - 300 UNITS/L) 61 Laboratory Tests 02/142 Hematology WBC (3.8 - 9.8 K/MM3) 11.0 H 7.4 RBC (3.58 - 4.97 M/MM3) 4.77 4.69 Hgb (11.2 - 14.9 G/DL) 12.0 11.9 Hct (33.2 - 43.5 %) 39.9 38.8 MCV (80.7 - 99.1 fL) 84 83 MCH (27.0 - 34.1 pg) 25.2 L 25.4 L MCHC (32.2 - 35.7 %) 30.1 L 30.7 L RDW (12.1 - 15.2 %) 15.5 H 15.7 H Plt Count (129 - 368 K/MM3) 299 231 MPV (7.4 - 10.4 fl) 11.4 H 10.5 H Neut % (Auto) (43 - 75 %) 76.4 H 65.9 Lymph % (Auto) (14 - 44 %) 18.6 25.6 Cavalier % (Auto) (4 - 13 %) 4.2 7.1 Eos % (Auto) (0 - 6 %) 0.0 0.5 Baso % (Auto) (0 - 2 %) 0.4 0.8 Neut # (Auto) (2.0 - 7.6 K/mm3) 8.39 H 4.84 Lymph # (Auto) (1.0 - 3.8 K/mm3) 2.04 1.88 Cavalier # (Auto) (0.1 - 0.8 K/mm3) 0.46 0.52 Eos # (Auto) (0.0 - 0.2 K/mm3) 0.00 0.04 Baso # (Auto) (0.0 - 0.2 K/mm3) 0.04 0.06 Immature Gran % (0.0 - 2.0 %) 0.4 0.1 Nucleated RBC % (0 - 1.0 %) 0.0 0.0 Nucleated RBCs # (Man) (0.0 - 0.1 K/mm3) 0.00 0.00 Radiology data:Recent Impressions:CAT SCAN - CT ABD PELVIS W/CONT 02/13 2249 Report Impression - Status: SIGNED Entered: 02/13/20212343 IMPRESSION: No acute findings in the abdomen or pelvis.Impression By: Betzy Cosme M.D.CAT SCAN - CTA CHEST 02/13 2249 Report Impression - Status: SIGNED Entered: 02/13/20212339 IMPRESSION: No evidence of pulmonary embolism, aortic aneurysm or dissection. Mild interstitial edema. Mild reactive or viral-like bilateral peribronchial thickening. Impression By: Betzy Cosme M.D. Results: labs reviewed, vital signs stable, x-ray personally reviewed, current med profile rev'd Diagnosis, Assessment PlanFree text DxA P:Level of care: ICUCODE STATUS: Full code Clinical impression/recommendation; 1. Acute coronary syndrome-unstable angina -CHRIST risk score for unstable angina is a 4, which per the CHRIST study group wysrbfgrrwqa80% risk at 14 days of all-cause mortality, ID, or severe recurrent ischemia requiring urgent revascularization. -Patient currently on nitroglycerin drip to decrease myocardial oxygen demand -Therapeutic Lovenox/ASA/Lipitor/metoprolol -Telemetry monitoring -Trend cardiac enzymes -Cardiology following patient and further management per the recommendations 2. Chest pain management -Morphine as needed per pain scale 3. Hypothyroidism -Resume home levothyroxine DVT prophylax: LovenoxGIB prophylaxis: Protonix Critical Care Time: 55 minutes This time excludes separately billable procedures or tests I personally performed 55 minutes of critical care time in treatment of this patient. This includes patient management, time at bedside, time reviewing test,labs, appropriate images and studies, documentation, patient /family member and patient care coordination. at 0524 RPT #:[id number] OF REPORTYWMviglxiznknt3763-12-67Y90:34:00Z.PDOC2 [id number] for patient brhfDUPHHGXUXUDEOC6044-38-68V87:24:53 [facility] 2021-02-13 19:46:00 [id number] Wg2L2eb/gHae6kCpPeCahTLKb6q2O XHBZNkH/fJV0uq63GOhszGQ5jY475W6Os63568-02-41M01:4 6:[id number] [place] [address] PATIENT NAME: MARIA M THOMPSON ADMIT DATE: 02/13/21ACCOUNT NO: [id number] ROOM NO: Z.I14 AGE: 55 REPORT TYPE: ELECTROCARDIOGRAM SEX: F ADMITTING PHYSICIAN:Ana Rosa Guerrero MD ATTENDING PHYSICIAN:Ana Rosa Guerrero MD Order:[id number] Reason : CHESTPAIN Test Date/Time Stamp:[facility] Feb 13 2021 19:46:37Blood Pressure : / mmHGVent. Rate : 064 BPM Atrial Rate : 064 BPM P-R Int : 164 ms QRS Dur : 100 ms QT Int : 416 ms P-R-T Axes : 054 -08 093 degrees QTc Int : 429 ms Normal sinus rhythmIncomplete right bundle branch blockST and T wave abnormality, consider anterior ischemiaAbnormal ECGWhen compared with ECG of 13-FEB-2021 17:56,Incomplete right bundle branch block is now presentT wave inversion now evident in Anterior leadsConfirmed by JOLYNN KEYES ([id number]) on 02/14/2021 9:47:52 AM Referred By: Ana Rosa Guerrero Confirmed by:JOLYNN KEYES at 0948 PATIENT NAME: MARIA M THOMPSON .[id number] AVAvailable for patient tzliPEAJNHGVRDRLIQ7162-09-96M83:48:25 [facility] 2021-02-13 19:16:00 [id number] UmZ3SaTlXJeOAicUb/nHiYSDiWFiL [facility] [place] [place]/IxQnafMXcFIvECINl1NblzMTSFKdE4759-70-58D13:1 6:00 [facility] ([facility] Centerist History PhysicalREPORT#:[id number] REPORT STATUS: SignedDATE:02/13/21 TIME: 1915 PATIENT: MARIA M THOMPSON UNIT #: [id number]#: [id number] [facility] AGE: 55 SEX: F ATTEND: Frederick Uriarte MDA AUTHOR: Kvng Trinidad MD, MPH R1 * ALL edits or amendments must be made on the electronic/computer document * See AddendumKvng Trinidad 02/13/211915:History of Present Illness HPIChief complaint:Atypical chest painPCP:PCP: Hans Christiansen MDHPI:Maria M Thompson is a 55 y/o F w/ PMH afib s/p ablation, hypothyroid, PSH C2-C7 surgery s/p fall transferred from [place] [facility] for acute onset chest pain. This AM she reported chest pain 6/10 while with her son. She went home and took her home flecainide/metoprolol w/o resolution of sx. She went to ER w/ , and received ASA 325 and nitro 0.4 mg 2x w/ some improvement in sx. EKG normal, troponin 0.135. CXR 02/13 sohwed no acute cardiopulmonary abnormality. Currently pt's pain is 8/10. She describes it as a deep ache in her L chest, w/ radiation down her L arm and more recently up her neck. This is similar in quality to her previous pain. She reports some SOB accompanying this pain. She reports some nausea, no vomiting. Some numbness down her L arm, no other extremity, no accompanying weakness.Informant/historian: patient, family/other at bedside () History Past Medical Surgical HxPatient History: 1. Afib 2. History of radiofrequency ablation (RFA) procedure for cardiac arrhythmia 3. Hypothyroidism 4. Neck pain with history of cervical spinal surgery Family HistoryFamily history:Reports: Heart disease (Father w/ implanted defib). Social HistoryAlcohol use: Denies EtOH useDrug use: Denies recreational drugsSmoking status: Smoking status for patients 13 years old or older: Never Smoker Medication/Allergy-Vaccine HxMedications:Home Medications:RIVAROXABAN (XARELTO) 20 MG PO DAILY LIOTHYRONINE (CYTOMEL) 5 MCG PO DAILY LEVOTHYROXINE (SYNTHROID) 175 MCG PO DAILY FLECAINIDE 100 MG PO Q12H METOPROLOL SUCC XL (TOPROL XL) 50 MG PO BID TAMSULOSIN ER (FLOMAX) 0.4 MG PO DAILY Allergies:Coded Allergies:Sulfa (Sulfonamide Antibiotics) (HIVES 11/19/19) Review of SystemsConstitutional:Denies: chills, fatigue, fever, generalized weakness, lethargy, malaise. Skin:Denies: diaphoresis, swelling. Eyes:Denies: visual loss/blurred, eye pain. ENT:Denies: hearing loss, mouth pain (mild lip tingling). Respiratory:Reports: SOB. Denies: LANDRUM (dyspnea on exertion), hemoptysis, non productive cough, pleuritic pain, productive cough (sputum). Cardiovascular:Reports: chest pain. Denies: LANDRUM (dyspnea on exertion), edema, palpitations. GI:Reports: nausea. Denies: abdominal pain, constipation, diarrhea, vomiting. Musculoskeletal:Reports: extremity pain. Denies: arthritis, extremity swelling, joint pain, joint swelling, thoracic pain. Heme:Denies: bleeding, bruising. Neuro:Reports: headache, numbness. Denies: change in LOC, confusion, dizziness, focalweakness (L arm numbness), vision change, weakness. Psych:Denies: change in mental status, confusion, hostile. Physical ExamVS/I O:Vital Signs Date Temp Pulse Resp B/P B/P Mean Pulse Ox FiO2 02/13 97.7-98.1 53-57 14-18 138-159/88-105 104.5-123.1 99-100 Last Documented: Result Date Time Pulse Ox 100 02/14 1912 B/P 159/105 02/14 1912 B/P Mean 123.1 02/14 1912 O2 Delivery Room air 02/14 1912 Temp 98.1 02/14 1912 Pulse 53 02/14 1912 Resp 18 02/14 1912 Patient Weight and BMI Weight (kg): 94.090 BMI: 28.9 General appearance: alert, awake, oriented, no acute distress, pleasant, conversational, mental status normal, no respiratory distressHead/Eyes: atraumatic, normal conjunctiva/sclera, PERRLENT: moist mucosal membranes, normal dentition, normal ear left, normal ear right, normal noseNeck: non-tender, normal thyroid, no JVD, no masses or swellingCardiovascular: normal capillary refill, normal heart sounds, regular rate rhythm, no murmurRespiratory: aerating well, clear to auscultation, symmetric expansion, no distressAbdomen: non-tender, normal bowel sounds, soft, no distention, no guarding, no hernia, no mass/organomegaly, no reboundExtremities: moves all, normal capillary refill, normal range of motion, no calftenderness, no clubbing, no cyanosis, no edemaMusculoskeletal: normal inspection, painless range of motion, no CVA tenderness,no muscle spasmNeuro/INDUSTRIAL SECURITY ANALYST: alert, oriented X 3, CNII-XII intact, normal speech, no motor deficits, no sensory deficitsSkin: dry, intact, normal color, normal temperature, no rash ResultsFindings/Data:Laboratory Tests: 02/13 02/13 02/13 181 1812 1913 Chemistry Sodium (137 - 145 MMOL/L) 140 Potassium (3.5 - 5.1 MMOL/L) 3.9 Chloride (98 - 107 MMOL/L) 103 Carbon Dioxide (22 - 30 MMOL/L) 28 BUN (7 - 17 MG/DL) 16 Creatinine (0.52 - 1.04 MG/DL) 0.60 Glomerular Filtr Rate > 60 Glucose (74 - 106 MG/DL) 100 POC Glucose (60 - 99 MG/DL) 86 Calcium (8.4 - 10.2 MG/DL) 9.7 Phosphorus (2.5 - 4.5 MG/DL) 3.9 Magnesium (1.6 - 2.3 MG/DL) 1.9 Total Bilirubin (0.2 - 1.3 MG/DL) 0.7 AST (14 - 36 UNITS/L) 33 ALT (<35 UNITS/L) 21 Total Alk Phosphatase (38 - 126 UNITS/L) 81 Troponin I (0.012 - 0.033 NG/ML) 0.901 *H Total Protein (6.3 - 8.2 G/DL) 8.4 H Albumin (3.5 - 5.0 G/DL) 4.9 LDL Cholesterol (100 - 129 mg/dL) 91 L Hematology WBC (3.8 - 9.8 K/MM3) 7.4 RBC (3.58 - 4.97 M/MM3) 4.69 Hgb (11.2 - 14.9 G/DL) 11.9 Hct (33.2 - 43.5 %) 38.8 MCV (80.7 - 99.1 fL) 83 MCH (27.0 - 34.1 pg) 25.4 L MCHC (32.2 - 35.7 %) 30.7 L RDW (12.1 - 15.2 %) 15.7 H Plt Count (129 - 368 K/MM3) 231 MPV (7.4 - 10.4 fl) 10.5 H Neut % (Auto) (43 - 75 %) 65.9 Lymph % (Auto) (14 - 44 %) 25.6 Cavalier % (Auto) (4 - 13 %) 7.1 Eos % (Auto) (0 - 6 %) 0.5 Baso % (Auto) (0 - 2 %) 0.8 Neut # (Auto) (2.0 - 7.6 K/mm3) 4.84 Lymph # (Auto) (1.0 - 3.8 K/mm3) 1.88 Cavalier # (Auto) (0.1 - 0.8 K/mm3) 0.52 Eos # (Auto) (0.0 - 0.2 K/mm3) 0.04 Baso # (Auto) (0.0 - 0.2 K/mm3) 0.06 Immature Gran % (0.0 - 2.0 %) 0.1 Nucleated RBC % (0 - 1.0 %) 0.0 Nucleated RBCs # (Man) (0.0 - 0.1 K/mm3) 0.00 Laboratory Tests 02/13/21 1812:[Embedded Image Not Available] Scores CHADs2-VASc Score:CHADs2-VASc Score CHADs2-VASc Score Response Value CHF: No 0 HTN: No 0 Total 0 TIMITIMI for UA/NSTEMI: CHRIST for UA/NSTEMI: Response Value Age 65 or Older? No 0 3 or More CAD Risk Factors? No 0 Prior Stenosis > [address] Deviation >= 0.5 mm? No 0 Severe Angina >=2 in 24 Hours? No 0 Aspirin in Last 7 Days? Yes 1 Elevated Cardiac Markers? Yes 1 Total 2 CHRIST risk for UA/NSTEMI:The CHRIST risk stratification tool measures the patients risk of all-cause mortality, new or recurrent ID, or severe recurrent ischemia requiring revascularization at 14 days. Diagnosis, Assessment PlanProblem List/A P: 1. Chest pain with high risk of acute coronary syndrome 2. NEW ONSET HYPERTENSION 3. Afib 4. Nausea without vomiting 5. Shortness of breath 6. Hypothyroidism 7. History of radiofrequency ablation (RFA) procedure for cardiac arrhythmia 8. Neck pain with history of cervical spinal surgery Free Text A P:Maria M Thompson is a 55 y/o F w/ PMH afib s/p ablation, hypothyroid, PSH C2-C7 surgery s/p fall transferred from [facility] for acute onset chest pain. Chest pain has worsened with new-onset radiation to neck on top of existing radiation to L arm. Significant elevation in troponin since arrival, although normal EKG, CXR. Chest pain continued to worsen significantly despite nitro paste/sublingual. Ddx NSTEMI vs unstable angina vs PE. Given elevated/rising trop + normal EKG + severe chest pain concerning for NSTEMI especially. No tachypnea, SOB sounds related to chest pain more so than pulm etiology. No hypoxia. #Atypical chest pain#Possible NSTEMI#ACS Deep aching L sided chest pain w/ radiation to L arm and neck, 03/23 worseningto 05/23 despite meds Normal EKG at ER, on telemetry Troponin 02/13 = 0.135 > 0.9 As per cardiology given high risk for ACS and no response thus far to nitro transfer to ICU for nitro dripPlan:Continue ASA 81 mg PO daily Received 325 loading 02/13 at ERContinue nitroglycerin 0.4 mg SL q5m PRNContinue nitroglycerin 0.5 in transderm f2HQpemtsjb O2 2L via NCContinue home metoprololBegin atorvastatin 40 mg PO dailyBegin lovenox 90 mg subQ BIDConsult cardiologyTransfer to ICU for further extensive management and nitroglycerin drip Consider PCI or other reperfusion as indicatedBegin tylenol 650 mg PO q4 PRN for pain #chronic afib#past cardiac ablation s/p cardiac ablation, well controlled at home No additional complications since ablationPlan:Continue metoprolol as aboveHold home flecainide 100 mg o45DPcth home rivaroxaban 20 mg daily #New onset hypertension 160/100 at ER, decreased to 130/90, now back to 160/100 No PMH HTN, no HTN medications 2/2 acute onset pain vs cardiac etiologyPlan:Hydralazine 10 mg IV q6 PRN #SOB Mild SOB, sat 99% on 2L NC Likely 2/2 cardiac as abovePlan:O2 as above #Nausea New onset nausea, no vomiting thus far, able to tolerate PO medicationsPlan:Zofran 4 mg IV q8H PRN #Hypothyroid Well controlled at home, no sxPlan:TSH labContinue home liothyronine 5 mcg PO dailyContinue home levothyroxine 175 mcg PO daily #Prior C2-C7 surgery No current management indicatedConsultants: cardiologyCode status: full code Quality: Gen Med Crit Care Current MedicationsCurrent medication review:I attest that the foregoing medication list in the medical record is true, accurate, and complete to the best of my knowledge. VTE ProphylaxisVTE prophylaxis initiated: yes (Lovenox, therapeutic) AttestationsAttestation needed: supervising physician Ana Rosa Guerrero 02/13/212022:Quality: Gen Med Crit Care Heart Failure:DC on BB,AMY/ARBHF DC medications: EF: AMY / ARB / ARNI at discharge: Beta-Jv at discharge: Attestations Teaching Physician Nbrogyrzkva3dl visit w/ resident:I was present with the resident during the history and exam. I discussed the case with the resident and . . . agree with the findings and plan as documented in the resident's note. at 2116 at 1412 Addendum 1: 02/13/212119 by Jose Coffey MD R3 Patient is a 55-year-old female with past medical history of proximal a fib status post ablation, hypothyroidism the presents with chest pain is starting earlier today. It was sub sternal radiating down the arm and of the neck. She thought it might be from a fib. But he persisted and that made her concerned to come in to the ER. Vital signs were stable in the ER for chest pain decreased after giving her aspirin and nitro classroom. Outside facility shows normal sinus rhythm without ST elevations. Troponins 0.135. No leukocytosis or electrolyte abnormality. Patient also has history of neck surgery with fracture. Atypical chest pain with troponemia/Possible NSTEMIDemand ischemia 2/2 to PAfibHypothyroidismHTN ASA given at Other facility 325 mgWill follow Troponin increasing 0.135->0.9Blood pressure elevatedChest pain is restarting Cardiology transfer to ICU for Nitro dripNormal EKGLipid panel AM labsReasumed home medicationsOn full dose LovenoxAdded Statin. at 2129 at 1805 RPT #:[id number] OF REPORTHPHistory and physical xwwaeapeval8193-99-38W54:16:00Z.[id number] AVAvailable for patient wcsvJENUGIKLKRBFLF6050-17-97D51:06:00 [facility] 2021-02-13 19:16:00 [id number] Zio/LvrbiLwr5f5fq39b8AGixX0OW m3MgyGTvR2VV4+Vy25ujd6GM+o/bNm4Mve9859-45-83E08:1 6:00 [facility] History PhysicalREPORT#:[id number] REPORT STATUS: SignedDATE:02/13/21 TIME: 1915 PATIENT: MARIA M THOMPSON UNIT #: [id number]#: [id number] [facility] AGE: 55 SEX: F ATTEND: Ana Rosa Guerrero [facility] AUTHOR: Kvng Trinidad MD, MPH R1 * ALL edits or amendments must be made on the electronic/computer document * Kvng Trinidad 02/13/211915:History of Present Illness HPIChief complaint:Atypical chest painPCP:PCP: Hans Christiansen MDHPI:Maria M Thompson is a 55 y/o F w/ PMH afib s/p ablation, hypothyroid, PSH C2-C7 surgery s/p fall transferred from [facility] for acute onset chest pain. This AM she reported chest pain 6/10 while with her son. She went home and took her home flecainide/metoprolol w/o resolution of sx. She went to ER w/ , and received ASA 325 and nitro 0.4 mg 2x w/ some improvement in sx. EKG normal, troponin 0.135. CXR 02/13 sohwed no acute cardiopulmonary abnormality. Currently pt's pain is 8/10. She describes it as a deep ache in her L chest, w/ radiation down her L arm and more recently up her neck. This is similar in quality to her previous pain. She reports some SOB accompanying this pain. She reports some nausea, no vomiting. Some numbness down her L arm, no other extremity, no accompanying weakness.Informant/historian: patient, family/other at bedside () History Past Medical Surgical HxPatient History: 1. Afib 2. History of radiofrequency ablation (RFA) procedure for cardiac arrhythmia 3. Hypothyroidism 4. Neck pain with history of cervical spinal surgery Family HistoryFamily history:Reports: Heart disease (Father w/ implanted defib). Social HistoryAlcohol use: Denies EtOH useDrug use: Denies recreational drugsSmoking status: Smoking status for patients 13 years old or older: Never Smoker Medication/Allergy-Vaccine HxMedications:Home Medications:RIVAROXABAN (XARELTO) 20 MG PO DAILY LIOTHYRONINE (CYTOMEL) 5 MCG PO DAILY LEVOTHYROXINE (SYNTHROID) 175 MCG PO DAILY FLECAINIDE 100 MG PO Q12H METOPROLOL SUCC XL (TOPROL XL) 50 MG PO BID TAMSULOSIN ER (FLOMAX) 0.4 MG PO DAILY Allergies:Coded Allergies:Sulfa (Sulfonamide Antibiotics) (HIVES 11/19/19) Review of SystemsConstitutional:Denies: chills, fatigue, fever, generalized weakness, lethargy, malaise. Skin:Denies: diaphoresis, swelling. Eyes:Denies: visual loss/blurred, eye pain. ENT:Denies: hearing loss, mouth pain (mild lip tingling). Respiratory:Reports: SOB. Denies: LANDRUM (dyspnea on exertion), hemoptysis, non productive cough, pleuritic pain, productive cough (sputum). Cardiovascular:Reports: chest pain. Denies: LANDRUM (dyspnea on exertion), edema, palpitations. GI:Reports: nausea. Denies: abdominal pain, constipation, diarrhea, vomiting. Musculoskeletal:Reports: extremity pain. Denies: arthritis, extremity swelling, joint pain, joint swelling, thoracic pain. Heme:Denies: bleeding, bruising. Neuro:Reports: headache, numbness. Denies: change in LOC, confusion, dizziness, focalweakness (L arm numbness), vision change, weakness. Psych:Denies: change in mental status, confusion, hostile. Physical ExamVS/I O:Vital Signs Date Temp Pulse Resp B/P B/P Mean Pulse Ox FiO2 02/13 97.7-98.1 53-57 14-18 138-159/88-105 104.5-123.1 99-100 Last Documented: Result Date Time Pulse Ox 100 02/14 1912 B/P 159/105 02/14 1912 B/P Mean 123.1 02/14 1912 O2 Delivery Room air 02/14 1912 Temp 98.1 02/14 1912 Pulse 53 02/14 1912 Resp 18 02/14 1912 Patient Weight and BMI Weight (kg): 94.090 BMI: 28.9 General appearance: alert, awake, oriented, no acute distress, pleasant, conversational, mental status normal, no respiratory distressHead/Eyes: atraumatic, normal conjunctiva/sclera, PERRLENT: moist mucosal membranes, normal dentition, normal ear left, normal ear right, normal noseNeck: non-tender, normal thyroid, no JVD, no masses or swellingCardiovascular: normal capillary refill, normal heart sounds, regular rate rhythm, no murmurRespiratory: aerating well, clear to auscultation, symmetric expansion, no distressAbdomen: non-tender, normal bowel sounds, soft, no distention, no guarding, no hernia, no mass/organomegaly, no reboundExtremities: moves all, normal capillary refill, normal range of motion, no calftenderness, no clubbing, no cyanosis, no edemaMusculoskeletal: normal inspection, painless range of motion, no CVA tenderness,no muscle spasmNeuro/INDUSTRIAL SECURITY ANALYST: alert, oriented X 3, CNII-XII intact, normal speech, no motor deficits, no sensory deficitsSkin: dry, intact, normal color, normal temperature, no rash ResultsFindings/Data:Laboratory Tests: 02/13 Chemistry Sodium (137 - 145 MMOL/L) 140 Potassium (3.5 - 5.1 MMOL/L) 3.9 Chloride (98 - 107 MMOL/L) 103 Carbon Dioxide (22 - 30 MMOL/L) 28 BUN (7 - 17 MG/DL) 16 Creatinine (0.52 - 1.04 MG/DL) 0.60 Glomerular Filtr Rate > 60 Glucose (74 - 106 MG/DL) 100 POC Glucose (60 - 99 MG/DL) 86 Calcium (8.4 - 10.2 MG/DL) 9.7 Phosphorus (2.5 - 4.5 MG/DL) 3.9 Magnesium (1.6 - 2.3 MG/DL) 1.9 Total Bilirubin (0.2 - 1.3 MG/DL) 0.7 AST (14 - 36 UNITS/L) 33 ALT (<35 UNITS/L) 21 Total Alk Phosphatase (38 - 126 UNITS/L) 81 Troponin I (0.012 - 0.033 NG/ML) 0.901 *H Total Protein (6.3 - 8.2 G/DL) 8.4 H Albumin (3.5 - 5.0 G/DL) 4.9 LDL Cholesterol (100 - 129 mg/dL) 91 L Hematology WBC (3.8 - 9.8 K/MM3) 7.4 RBC (3.58 - 4.97 M/MM3) 4.69 Hgb (11.2 - 14.9 G/DL) 11.9 Hct (33.2 - 43.5 %) 38.8 MCV (80.7 - 99.1 fL) 83 MCH (27.0 - 34.1 pg) 25.4 L MCHC (32.2 - 35.7 %) 30.7 L RDW (12.1 - 15.2 %) 15.7 H Plt Count (129 - 368 K/MM3) 231 MPV (7.4 - 10.4 fl) 10.5 H Neut % (Auto) (43 - 75 %) 65.9 Lymph % (Auto) (14 - 44 %) 25.6 Cavalier % (Auto) (4 - 13 %) 7.1 Eos % (Auto) (0 - 6 %) 0.5 Baso % (Auto) (0 - 2 %) 0.8 Neut # (Auto) (2.0 - 7.6 K/mm3) 4.84 Lymph # (Auto) (1.0 - 3.8 K/mm3) 1.88 Cavalier # (Auto) (0.1 - 0.8 K/mm3) 0.52 Eos # (Auto) (0.0 - 0.2 K/mm3) 0.04 Baso # (Auto) (0.0 - 0.2 K/mm3) 0.06 Immature Gran % (0.0 - 2.0 %) 0.1 Nucleated RBC % (0 - 1.0 %) 0.0 Nucleated RBCs # (Man) (0.0 - 0.1 K/mm3) 0.00 Laboratory Tests 02/13/21 1812:[Embedded Image Not Available] Scores CHADs2-VASc Score:CHADs2-VASc Score CHADs2-VASc Score Response Value CHF: No 0 HTN: No 0 Total 0 TIMITIMI for UA/NSTEMI: CHRIST for UA/NSTEMI: Response Value Age 65 or Older? No 0 3 or More CAD Risk Factors? No 0 Prior Stenosis > [address] Deviation >= 0.5 mm? No 0 Severe Angina >=2 in 24 Hours? No 0 Aspirin in Last 7 Days? Yes 1 Elevated Cardiac Markers? Yes 1 Total 2 CHRIST risk for UA/NSTEMI:The CHRIST risk stratification tool measures the patients risk of all-cause mortality, new or recurrent ID, or severe recurrent ischemia requiring revascularization at 14 days. Diagnosis, Assessment PlanProblem List/A P: 1. Chest pain with high risk of acute coronary syndrome 2. NEW ONSET HYPERTENSION 3. Afib 4. Nausea without vomiting 5. Shortness of breath 6. Hypothyroidism 7. History of radiofrequency ablation (RFA) procedure for cardiac arrhythmia 8. Neck pain with history of cervical spinal surgery Free Text A P:Maria M Thompson is a 55 y/o F w/ PMH afib s/p ablation, hypothyroid, PSH C2-C7 surgery s/p fall transferred from [place] ER for acute onset chest pain. Chest pain has worsened with new-onset radiation to neck on top of existing radiation to L arm. Significant elevation in troponin since arrival, although normal EKG, CXR. Chest pain continued to worsen significantly despite nitro paste/sublingual. Ddx NSTEMI vs unstable angina vs PE. Given elevated/rising trop + normal EKG + severe chest pain concerning for NSTEMI especially. No tachypnea, SOB sounds related to chest pain more so than pulm etiology. No hypoxia. #Atypical chest pain#Possible NSTEMI#ACS Deep aching L sided chest pain w/ radiation to L arm and neck, 03/23 worseningto 05/23 despite meds Normal EKG at ER, on telemetry Troponin 02/13 = 0.135 > 0.9 As per cardiology given high risk for ACS and no response thus far to nitro transfer to ICU for nitro dripPlan:Continue ASA 81 mg PO daily Received 325 loading 02/13 at ERContinue nitroglycerin 0.4 mg SL q5m PRNContinue nitroglycerin 0.5 in transderm d5OIuhsodyn O2 2L via NCContinue home metoprololBegin atorvastatin 40 mg PO dailyBegin lovenox 90 mg subQ BIDConsult cardiologyTransfer to ICU for further extensive management and nitroglycerin drip Consider PCI or other reperfusion as indicatedBegin tylenol 650 mg PO q4 PRN for pain #chronic afib#past cardiac ablation s/p cardiac ablation, well controlled at home No additional complications since ablationPlan:Continue metoprolol as aboveHold home flecainide 100 mg [id number] home rivaroxaban 20 mg daily #New onset hypertension 160/100 at ER, decreased to 130/90, now back to 160/100 No PMH HTN, no HTN medications 2/2 acute onset pain vs cardiac etiologyPlan:Hydralazine 10 mg IV q6 PRN #SOB Mild SOB, sat 99% on 2L NC Likely 2/2 cardiac as abovePlan:O2 as above #Nausea New onset nausea, no vomiting thus far, able to tolerate PO medicationsPlan:Zofran 4 mg IV q8H PRN #Hypothyroid Well controlled at home, no sxPlan:TSH labContinue home liothyronine 5 mcg PO dailyContinue home levothyroxine 175 mcg PO daily #Prior C2-C7 surgery No current management indicatedConsultants: cardiologyCode status: full code Quality: Gen Med Crit Care Current MedicationsCurrent medication review:I attest that the foregoing medication list in the medical record is true, accurate, and complete to the best of my knowledge. VTE ProphylaxisVTE prophylaxis initiated: yes (Lovenox, therapeutic) AttestationsAttestation needed: supervising physician Ana Rosa Guerrero 02/13/212022:Quality: Gen Med Crit Care Heart Failure:DC on BB,AMY/ARBHF DC medications: EF: AMY / ARB / ARNI at discharge: Beta-Jv at discharge: Attestations Teaching Physician [id number] visit w/ resident:I was present with the resident during the history and exam. I discussed the case with the resident and . . . agree with the findings and plan as documented in the resident's note. agree with the findings and plan as documented in the resident's note EXCEPT: at 2116 RPT #:[id number] OF REPORTHPHistory and physical [id number]:16:00Z.[id number] AVAvailable for patient [id number]:16:59 [facility] 2021-02-13 19:16:00 [id number] [id number]:1 6:00 [facility] Hospitalist History PhysicalREPORT#:[id number] REPORT STATUS: SignedDATE:02/13/21 TIME: 1915 PATIENT: MARIA M THOMPSON UNIT #: [id number]#: [id number] [address] AGE: 55 SEX: F ATTEND: Ana Rosa Guerrero MDA AUTHOR: Kvng Trinidad MD, MPH R1 * ALL edits or amendments must be made on the electronic/computer document * See AddendumKvng Trinidad 02/13/211915:History of Present Illness HPIChief complaint:Atypical chest painPCP:PCP: Hans Christiansen MDHPI:Maria M Thompson is a 55 y/o F w/ PMH afib s/p ablation, hypothyroid, PSH C2-C7 surgery s/p fall transferred from [place] ER for acute onset chest pain. This AM she reported chest pain 6/10 while with her son. She went home and took her home flecainide/metoprolol w/o resolution of sx. She went to ER w/ , and received ASA 325 and nitro 0.4 mg 2x w/ some improvement in sx. EKG normal, troponin 0.135. CXR 02/13 sohwed no acute cardiopulmonary abnormality. Currently pt's pain is 8/10. She describes it as a deep ache in her L chest, w/ radiation down her L arm and more recently up her neck. This is similar in quality to her previous pain. She reports some SOB accompanying this pain. She reports some nausea, no vomiting. Some numbness down her L arm, no other extremity, no accompanying weakness.Informant/historian: patient, family/other at bedside () History Past Medical Surgical HxPatient History: 1. Afib 2. History of radiofrequency ablation (RFA) procedure for cardiac arrhythmia 3. Hypothyroidism 4. Neck pain with history of cervical spinal surgery Family HistoryFamily history:Reports: Heart disease (Father w/ implanted defib). Social HistoryAlcohol use: Denies EtOH useDrug use: Denies recreational drugsSmoking status: Smoking status for patients 13 years old or older: Never Smoker Medication/Allergy-Vaccine HxMedications:Home Medications:RIVAROXABAN (XARELTO) 20 MG PO DAILY LIOTHYRONINE (CYTOMEL) 5 MCG PO DAILY LEVOTHYROXINE (SYNTHROID) 175 MCG PO DAILY FLECAINIDE 100 MG PO Q12H METOPROLOL SUCC XL (TOPROL XL) 50 MG PO BID TAMSULOSIN ER (FLOMAX) 0.4 MG PO DAILY Allergies:Coded Allergies:Sulfa (Sulfonamide Antibiotics) (HIVES 11/19/19) Review of SystemsConstitutional:Denies: chills, fatigue, fever, generalized weakness, lethargy, malaise. Skin:Denies: diaphoresis, swelling. Eyes:Denies: visual loss/blurred, eye pain. ENT:Denies: hearing loss, mouth pain (mild lip tingling). Respiratory:Reports: SOB. Denies: LANDRUM (dyspnea on exertion), hemoptysis, non productive cough, pleuritic pain, productive cough (sputum). Cardiovascular:Reports: chest pain. Denies: LANDRUM (dyspnea on exertion), edema, palpitations. GI:Reports: nausea. Denies: abdominal pain, constipation, diarrhea, vomiting. Musculoskeletal:Reports: extremity pain. Denies: arthritis, extremity swelling, joint pain, joint swelling, thoracic pain. Heme:Denies: bleeding, bruising. Neuro:Reports: headache, numbness. Denies: change in LOC, confusion, dizziness, focalweakness (L arm numbness), vision change, weakness. Psych:Denies: change in mental status, confusion, hostile. Physical ExamVS/I O:Vital Signs Date Temp Pulse Resp B/P B/P Mean Pulse Ox FiO2 02/13 97.7-98.1 53-57 14-18 138-159/88-105 104.5-123.1 99-100 Last Documented: Result Date Time Pulse Ox 100 02/14 1912 B/P 159/105 02/14 1912 B/P Mean 123.1 02/14 1912 O2 Delivery Room air 02/14 1912 Temp 98.1 02/14 1912 Pulse 53 02/14 1912 Resp 18 02/14 1912 Patient Weight and BMI Weight (kg): 94.090 BMI: 28.9 General appearance: alert, awake, oriented, no acute distress, pleasant, conversational, mental status normal, no respiratory distressHead/Eyes: atraumatic, normal conjunctiva/sclera, PERRLENT: moist mucosal membranes, normal dentition, normal ear left, normal ear right, normal noseNeck: non-tender, normal thyroid, no JVD, no masses or swellingCardiovascular: normal capillary refill, normal heart sounds, regular rate rhythm, no murmurRespiratory: aerating well, clear to auscultation, symmetric expansion, no distressAbdomen: non-tender, normal bowel sounds, soft, no distention, no guarding, no hernia, no mass/organomegaly, no reboundExtremities: moves all, normal capillary refill, normal range of motion, no calftenderness, no clubbing, no cyanosis, no edemaMusculoskeletal: normal inspection, painless range of motion, no CVA tenderness,no muscle spasmNeuro/INDUSTRIAL SECURITY ANALYST: alert, oriented X 3, CNII-XII intact, normal speech, no motor deficits, no sensory deficitsSkin: dry, intact, normal color, normal temperature, no rash ResultsFindings/Data:Laboratory Tests: 02/13 Chemistry Sodium (137 - 145 MMOL/L) 140 Potassium (3.5 - 5.1 MMOL/L) 3.9 Chloride (98 - 107 MMOL/L) 103 Carbon Dioxide (22 - 30 MMOL/L) 28 BUN (7 - 17 MG/DL) 16 Creatinine (0.52 - 1.04 MG/DL) 0.60 Glomerular Filtr Rate > 60 Glucose (74 - 106 MG/DL) 100 POC Glucose (60 - 99 MG/DL) 86 Calcium (8.4 - 10.2 MG/DL) 9.7 Phosphorus (2.5 - 4.5 MG/DL) 3.9 Magnesium (1.6 - 2.3 MG/DL) 1.9 Total Bilirubin (0.2 - 1.3 MG/DL) 0.7 AST (14 - 36 UNITS/L) 33 ALT (<35 UNITS/L) 21 Total Alk Phosphatase (38 - 126 UNITS/L) 81 Troponin I (0.012 - 0.033 NG/ML) 0.901 *H Total Protein (6.3 - 8.2 G/DL) 8.4 H Albumin (3.5 - 5.0 G/DL) 4.9 LDL Cholesterol (100 - 129 mg/dL) 91 L Hematology WBC (3.8 - 9.8 K/MM3) 7.4 RBC (3.58 - 4.97 M/MM3) 4.69 Hgb (11.2 - 14.9 G/DL) 11.9 Hct (33.2 - 43.5 %) 38.8 MCV (80.7 - 99.1 fL) 83 MCH (27.0 - 34.1 pg) 25.4 L MCHC (32.2 - 35.7 %) 30.7 L RDW (12.1 - 15.2 %) 15.7 H Plt Count (129 - 368 K/MM3) 231 MPV (7.4 - 10.4 fl) 10.5 H Neut % (Auto) (43 - 75 %) 65.9 Lymph % (Auto) (14 - 44 %) 25.6 Cavalier % (Auto) (4 - 13 %) 7.1 Eos % (Auto) (0 - 6 %) 0.5 Baso % (Auto) (0 - 2 %) 0.8 Neut # (Auto) (2.0 - 7.6 K/mm3) 4.84 Lymph # (Auto) (1.0 - 3.8 K/mm3) 1.88 Cavalier # (Auto) (0.1 - 0.8 K/mm3) 0.52 Eos # (Auto) (0.0 - 0.2 K/mm3) 0.04 Baso # (Auto) (0.0 - 0.2 K/mm3) 0.06 Immature Gran % (0.0 - 2.0 %) 0.1 Nucleated RBC % (0 - 1.0 %) 0.0 Nucleated RBCs # (Man) (0.0 - 0.1 K/mm3) 0.00 Laboratory Tests 02/13/21 1812:[Embedded Image Not Available] Scores CHADs2-VASc Score:CHADs2-VASc Score CHADs2-VASc Score Response Value CHF: No 0 HTN: No 0 Total 0 TIMITIMI for UA/NSTEMI: CHRIST for UA/NSTEMI: Response Value Age 65 or Older? No 0 3 or More CAD Risk Factors? No 0 Prior Stenosis > [address] Deviation >= 0.5 mm? No 0 Severe Angina >=2 in 24 Hours? No 0 Aspirin in Last 7 Days? Yes 1 Elevated Cardiac Markers? Yes 1 Total 2 CHRIST risk for UA/NSTEMI:The CHRIST risk stratification tool measures the patients risk of all-cause mortality, new or recurrent ID, or severe recurrent ischemia requiring revascularization at 14 days. Diagnosis, Assessment PlanProblem List/A P: 1. Chest pain with high risk of acute coronary syndrome 2. NEW ONSET HYPERTENSION 3. Afib 4. Nausea without vomiting 5. Shortness of breath 6. Hypothyroidism 7. History of radiofrequency ablation (RFA) procedure for cardiac arrhythmia 8. Neck pain with history of cervical spinal surgery Free Text A P:Maria M Thompson is a 55 y/o F w/ PMH afib s/p ablation, hypothyroid, PSH C2-C7 surgery s/p fall transferred from [facility] for acute onset chest pain. Chest pain has worsened with new-onset radiation to neck on top of existing radiation to L arm. Significant elevation in troponin since arrival, although normal EKG, CXR. Chest pain continued to worsen significantly despite nitro paste/sublingual. Ddx NSTEMI vs unstable angina vs PE. Given elevated/rising trop + normal EKG + severe chest pain concerning for NSTEMI especially. No tachypnea, SOB sounds related to chest pain more so than pulm etiology. No hypoxia. #Atypical chest pain#Possible NSTEMI#ACS Deep aching L sided chest pain w/ radiation to L arm and neck, 03/23 worseningto 05/23 despite meds Normal EKG at ER, on telemetry Troponin 02/13 = 0.135 > 0.9 As per cardiology given high risk for ACS and no response thus far to nitro transfer to ICU for nitro dripPlan:Continue ASA 81 mg PO daily Received 325 loading 02/13 at ERContinue nitroglycerin 0.4 mg SL q5m PRNContinue nitroglycerin 0.5 in transderm [id number] O2 2L via NCContinue home metoprololBegin atorvastatin 40 mg PO dailyBegin lovenox 90 mg subQ BIDConsult cardiologyTransfer to ICU for further extensive management and nitroglycerin drip Consider PCI or other reperfusion as indicatedBegin tylenol 650 mg PO q4 PRN for pain #chronic afib#past cardiac ablation s/p cardiac ablation, well controlled at home No additional complications since ablationPlan:Continue metoprolol as aboveHold home flecainide 100 mg [id number] home rivaroxaban 20 mg daily #New onset hypertension 160/100 at ER, decreased to 130/90, now back to 160/100 No PMH HTN, no HTN medications 2/2 acute onset pain vs cardiac etiologyPlan:Hydralazine 10 mg IV q6 PRN #SOB Mild SOB, sat 99% on 2L NC Likely 2/2 cardiac as abovePlan:O2 as above #Nausea New onset nausea, no vomiting thus far, able to tolerate PO medicationsPlan:Zofran 4 mg IV q8H PRN #Hypothyroid Well controlled at home, no sxPlan:TSH labContinue home liothyronine 5 mcg PO dailyContinue home levothyroxine 175 mcg PO daily #Prior C2-C7 surgery No current management indicatedConsultants: cardiologyCode status: full code Quality: [facility] Med Crit Care Current MedicationsCurrent medication review:I attest that the foregoing medication list in the medical record is true, accurate, and complete to the best of my knowledge. VTE ProphylaxisVTE prophylaxis initiated: yes (Lovenox, therapeutic) AttestationsAttestation needed: supervising physician Ana Rosa Guerrero 02/13/212022:Quality: Gen Med Crit Care Heart Failure:DC on BB,AMY/ARBHF DC medications: EF: AMY / ARB / ARNI at discharge: Beta-Jv at discharge: Attestations Teaching Physician Ceozybwpkij6rz visit w/ resident:I was present with the resident during the history and exam. I discussed the case with the resident and . . . agree with the findings and plan as documented in the resident's note. agree with the findings and plan as documented in the resident's note EXCEPT: at 2116 Addendum 1: 02/13/212119 by Jose Coffey MD R3 for Ana Rosa Guerrero MD Patient is a 55-year-old female with past medical history of proximal a fib status post ablation, hypothyroidism the presents with chest pain is starting earlier today. It was sub sternal radiating down the arm and of the neck. She thought it might be from a fib. But he persisted and that made her concerned to come in to the ER. Vital signs were stable in the ER for chest pain decreased after giving her aspirin and nitro classroom. Outside facility shows normal sinus rhythm without ST elevations. Troponins 0.135. No leukocytosis or electrolyte abnormality. Patient also has history of neck surgery with fracture. Atypical chest pain with troponemia/Possible NSTEMIDemand ischemia 2/2 to PAfibHypothyroidismHTN ASA given at Other facility 325 mgWill follow Troponin increasing 0.135->0.9Blood pressure elevatedChest pain is restarting Cardiology transfer to ICU for Nitro dripNormal EKGLipid panel AM labsReasumed home medicationsOn full dose LovenoxAdded Statin. at 2129 [facility] #:[id number] OF REPORTHPHistory and physical [id number]:16:00Z.[id number] AVAvailable for patient [id number]:30:10 [facility] 2021-02-13 19:16:00 [id number] /[id number] [id number]:1 6:00 [facility] ([facility]Hospitalist History PhysicalREPORT#:[id number] REPORT STATUS: SignedDATE:02/13/21 TIME: 1915 PATIENT: MARIA M THOMPSON UNIT #: [id number]#: [id number] [facility] AGE: 55 SEX: F ATTEND: Ana Rosa Guerrero [facility] AUTHOR: Kvng Trinidad MD, MPH R1 * ALL edits or amendments must be made on the electronic/computer document * See AddendumKvng Trinidad 02/13/211915:History of Present Illness HPIChief complaint:Atypical chest painPCP:PCP: Hans Christiansen MDHPI:Maria M Thompson is a 55 y/o F w/ PMH afib s/p ablation, hypothyroid, PSH C2-C7 surgery s/p fall transferred from [place] ER for acute onset chest pain. This AM she reported chest pain 6/10 while with her son. She went home and took her home flecainide/metoprolol w/o resolution of sx. She went to ER w/ , and received ASA 325 and nitro 0.4 mg 2x w/ some improvement in sx. EKG normal, troponin 0.135. CXR 02/13 sohwed no acute cardiopulmonary abnormality. Currently pt's pain is 8/10. She describes it as a deep ache in her L chest, w/ radiation down her L arm and more recently up her neck. This is similar in quality to her previous pain. She reports some SOB accompanying this pain. She reports some nausea, no vomiting. Some numbness down her L arm, no other extremity, no accompanying weakness.Informant/historian: patient, family/other at bedside () History Past Medical Surgical HxPatient History: 1. Afib 2. History of radiofrequency ablation (RFA) procedure for cardiac arrhythmia 3. Hypothyroidism 4. Neck pain with history of cervical spinal surgery Family HistoryFamily history:Reports: Heart disease (Father w/ implanted defib). Social HistoryAlcohol use: Denies EtOH useDrug use: Denies recreational drugsSmoking status: Smoking status for patients 13 years old or older: Never Smoker Medication/Allergy-Vaccine HxMedications:Home Medications:RIVAROXABAN (XARELTO) 20 MG PO DAILY LIOTHYRONINE (CYTOMEL) 5 MCG PO DAILY LEVOTHYROXINE (SYNTHROID) 175 MCG PO DAILY FLECAINIDE 100 MG PO Q12H METOPROLOL SUCC XL (TOPROL XL) 50 MG PO BID TAMSULOSIN ER (FLOMAX) 0.4 MG PO DAILY Allergies:Coded Allergies:Sulfa (Sulfonamide Antibiotics) (HIVES 11/19/19) Review of SystemsConstitutional:Denies: chills, fatigue, fever, generalized weakness, lethargy, malaise. Skin:Denies: diaphoresis, swelling. Eyes:Denies: visual loss/blurred, eye pain. ENT:Denies: hearing loss, mouth pain (mild lip tingling). Respiratory:Reports: SOB. Denies: LANDRUM (dyspnea on exertion), hemoptysis, non productive cough, pleuritic pain, productive cough (sputum). Cardiovascular:Reports: chest pain. Denies: LANDRUM (dyspnea on exertion), edema, palpitations. GI:Reports: nausea. Denies: abdominal pain, constipation, diarrhea, vomiting. Musculoskeletal:Reports: extremity pain. Denies: arthritis, extremity swelling, joint pain, joint swelling, thoracic pain. Heme:Denies: bleeding, bruising. Neuro:Reports: headache, numbness. Denies: change in LOC, confusion, dizziness, focalweakness (L arm numbness), vision change, weakness. Psych:Denies: change in mental status, confusion, hostile. Physical ExamVS/I O:Vital Signs Date Temp Pulse Resp B/P B/P Mean Pulse Ox FiO2 02/13 97.7-98.1 53-57 14-18 138-159/88-105 104.5-123.1 99-100 Last Documented: Result Date Time Pulse Ox 100 02/14 1912 B/P 159/105 02/14 1912 B/P Mean 123.1 02/14 1912 O2 Delivery Room air 02/14 1912 Temp 98.1 02/14 1912 Pulse 53 02/14 1912 Resp 18 02/14 1912 Patient Weight and BMI Weight (kg): 94.090 BMI: 28.9 General appearance: alert, awake, oriented, no acute distress, pleasant, conversational, mental status normal, no respiratory distressHead/Eyes: atraumatic, normal conjunctiva/sclera, PERRLENT: moist mucosal membranes, normal dentition, normal ear left, normal ear right, normal noseNeck: non-tender, normal thyroid, no JVD, no masses or swellingCardiovascular: normal capillary refill, normal heart sounds, regular rate rhythm, no murmurRespiratory: aerating well, clear to auscultation, symmetric expansion, no distressAbdomen: non-tender, normal bowel sounds, soft, no distention, no guarding, no hernia, no mass/organomegaly, no reboundExtremities: moves all, normal capillary refill, normal range of motion, no calftenderness, no clubbing, no cyanosis, no edemaMusculoskeletal: normal inspection, painless range of motion, no CVA tenderness,no muscle spasmNeuro/INDUSTRIAL SECURITY ANALYST: alert, oriented X 3, CNII-XII intact, normal speech, no motor deficits, no sensory deficitsSkin: dry, intact, normal color, normal temperature, no rash ResultsFindings/Data:Laboratory Tests: 02/13 02/13 02/13 1812 1812 1913 Chemistry Sodium (137 - 145 MMOL/L) 140 Potassium (3.5 - 5.1 MMOL/L) 3.9 Chloride (98 - 107 MMOL/L) 103 Carbon Dioxide (22 - 30 MMOL/L) 28 BUN (7 - 17 MG/DL) 16 Creatinine (0.52 - 1.04 MG/DL) 0.60 Glomerular Filtr Rate > 60 Glucose (74 - 106 MG/DL) 100 POC Glucose (60 - 99 MG/DL) 86 Calcium (8.4 - 10.2 MG/DL) 9.7 Phosphorus (2.5 - 4.5 MG/DL) 3.9 Magnesium (1.6 - 2.3 MG/DL) 1.9 Total Bilirubin (0.2 - 1.3 MG/DL) 0.7 AST (14 - 36 UNITS/L) 33 ALT (<35 UNITS/L) 21 Total Alk Phosphatase (38 - 126 UNITS/L) 81 Troponin I (0.012 - 0.033 NG/ML) 0.901 *H Total Protein (6.3 - 8.2 G/DL) 8.4 H Albumin (3.5 - 5.0 G/DL) 4.9 LDL Cholesterol (100 - 129 mg/dL) 91 L Hematology WBC (3.8 - 9.8 K/MM3) 7.4 RBC (3.58 - 4.97 M/MM3) 4.69 Hgb (11.2 - 14.9 G/DL) 11.9 Hct (33.2 - 43.5 %) 38.8 MCV (80.7 - 99.1 fL) 83 MCH (27.0 - 34.1 pg) 25.4 L MCHC (32.2 - 35.7 %) 30.7 L RDW (12.1 - 15.2 %) 15.7 H Plt Count (129 - 368 K/MM3) 231 MPV (7.4 - 10.4 fl) 10.5 H Neut % (Auto) (43 - 75 %) 65.9 Lymph % (Auto) (14 - 44 %) 25.6 Cavalier % (Auto) (4 - 13 %) 7.1 Eos % (Auto) (0 - 6 %) 0.5 Baso % (Auto) (0 - 2 %) 0.8 Neut # (Auto) (2.0 - 7.6 K/mm3) 4.84 Lymph # (Auto) (1.0 - 3.8 K/mm3) 1.88 Cavalier # (Auto) (0.1 - 0.8 K/mm3) 0.52 Eos # (Auto) (0.0 - 0.2 K/mm3) 0.04 Baso # (Auto) (0.0 - 0.2 K/mm3) 0.06 Immature Gran % (0.0 - 2.0 %) 0.1 Nucleated RBC % (0 - 1.0 %) 0.0 Nucleated RBCs # (Man) (0.0 - 0.1 K/mm3) 0.00 Laboratory Tests 02/13/21 1812:[Embedded Image Not Available] Scores CHADs2-VASc Score:CHADs2-VASc Score CHADs2-VASc Score Response Value CHF: No 0 HTN: No 0 Total 0 TIMITIMI for UA/NSTEMI: CHRIST for UA/NSTEMI: Response Value Age 65 or Older? No 0 3 or More CAD Risk Factors? No 0 Prior Stenosis > [address] Deviation >= 0.5 mm? No 0 Severe Angina >=2 in 24 Hours? No 0 Aspirin in Last 7 Days? Yes 1 Elevated Cardiac Markers? Yes 1 Total 2 CHRIST risk for UA/NSTEMI:The CHRIST risk stratification tool measures the patients risk of all-cause mortality, new or recurrent ID, or severe recurrent ischemia requiring revascularization at 14 days. Diagnosis, Assessment PlanProblem List/A P: 1. Chest pain with high risk of acute coronary syndrome 2. NEW ONSET HYPERTENSION 3. Afib 4. Nausea without vomiting 5. Shortness of breath 6. Hypothyroidism 7. History of radiofrequency ablation (RFA) procedure for cardiac arrhythmia 8. Neck pain with history of cervical spinal surgery Free Text A P:Maria M Thompson is a 55 y/o F w/ PMH afib s/p ablation, hypothyroid, PSH C2-C7 surgery s/p fall transferred from [place] ER for acute onset chest pain. Chest pain has worsened with new-onset radiation to neck on top of existing radiation to L arm. Significant elevation in troponin since arrival, although normal EKG, CXR. Chest pain continued to worsen significantly despite nitro paste/sublingual. Ddx NSTEMI vs unstable angina vs PE. Given elevated/rising trop + normal EKG + severe chest pain concerning for NSTEMI especially. No tachypnea, SOB sounds related to chest pain more so than pulm etiology. No hypoxia. #Atypical chest pain#Possible NSTEMI#ACS Deep aching L sided chest pain w/ radiation to L arm and neck, 03/23 worseningto 05/23 despite meds Normal EKG at ER, on telemetry Troponin 02/13 = 0.135 > 0.9 As per cardiology given high risk for ACS and no response thus far to nitro transfer to ICU for nitro dripPlan:Continue ASA 81 mg PO daily Received 325 loading 02/13 at ERContinue nitroglycerin 0.4 mg SL q5m PRNContinue nitroglycerin 0.5 in transderm n2VTmaohfwn O2 2L via NCContinue home metoprololBegin atorvastatin 40 mg PO dailyBegin lovenox 90 mg subQ BIDConsult cardiologyTransfer to ICU for further extensive management and nitroglycerin drip Consider PCI or other reperfusion as indicatedBegin tylenol 650 mg PO q4 PRN for pain #chronic afib#past cardiac ablation s/p cardiac ablation, well controlled at home No additional complications since ablationPlan:Continue metoprolol as aboveHold home flecainide 100 mg u29NZtdr home rivaroxaban 20 mg daily #New onset hypertension 160/100 at ER, decreased to 130/90, now back to 160/100 No PMH HTN, no HTN medications 2/2 acute onset pain vs cardiac etiologyPlan:Hydralazine 10 mg IV q6 PRN #SOB Mild SOB, sat 99% on 2L NC Likely 2/2 cardiac as abovePlan:O2 as above #Nausea New onset nausea, no vomiting thus far, able to tolerate PO medicationsPlan:Zofran 4 mg IV q8H PRN #Hypothyroid Well controlled at home, no sxPlan:TSH labContinue home liothyronine 5 mcg PO dailyContinue home levothyroxine 175 mcg PO daily #Prior C2-C7 surgery No current management indicatedConsultants: cardiologyCode status: full code Quality: [facility] Current MedicationsCurrent medication review:I attest that the foregoing medication list in the medical record is true, accurate, and complete to the best of my knowledge. VTE ProphylaxisVTE prophylaxis initiated: yes (Lovenox, therapeutic) AttestationsAttestation needed: supervising physician Ana Rosa Guerrero 02/13/212022:Quality: [facility] Heart Failure:DC on BB,AMY/ARBHF DC medications: EF: AMY / ARB / ARNI at discharge: Beta-Jv at discharge: Attestations Teaching Physician Wclgugmmkuy2et visit w/ resident:I was present with the resident during the history and exam. I discussed the case with the resident and . . . agree with the findings and plan as documented in the resident's note. at 2116 at 1412 Addendum 1: 02/13/212119 by Jose Coffey MD R3 for Ana Rosa Guerrero MD Patient is a 55-year-old female with past medical history of proximal a fib status post ablation, hypothyroidism the presents with chest pain is starting earlier today. It was sub sternal radiating down the arm and of the neck. She thought it might be from a fib. But he persisted and that made her concerned to come in to the ER. Vital signs were stable in the ER for chest pain decreased after giving her aspirin and nitro classroom. Outside facility shows normal sinus rhythm without ST elevations. Troponins 0.135. No leukocytosis or electrolyte abnormality. Patient also has history of neck surgery with fracture. Atypical chest pain with troponemia/Possible NSTEMIDemand ischemia 2/2 to PAfibHypothyroidismHTN ASA given at Other facility 325 mgWill follow Troponin increasing 0.135->0.9Blood pressure elevatedChest pain is restarting Cardiology transfer to ICU for Nitro dripNormal EKGLipid panel AM labsReasumed home medicationsOn full dose LovenoxAdded Statin. at 2129 RPT #:[id number] OF REPORTHPHistory and physical cfsxrunjgtl7634-98-93E24:16:00Z.[id number] AVAvailable for patient sumwSKTTDZFPTLRNPI5987-83-77M22:28:18 [facility] 2021-02-13 17:56:00 [id number] am26g6PFE4Wa+x8f+r+VTmXLW1laO DPv1EP5aT2BLZ/sntG+SWabwNVgZh6wbsk8183-41-08N51:5 6:[id number] [address] PATIENT NAME: MARIA M THOMPSON ADMIT DATE: 02/13/21ACCOUNT NO: [id number] ROOM NO: [facility] AGE: 55 REPORT TYPE: ELECTROCARDIOGRAM SEX: F ADMITTING PHYSICIAN:Deb Lira MD ATTENDING PHYSICIAN:Deb Lira MD Order:[id number] Reason : chest pain Test Date/Time Stamp:MonFeb 13 2021 17:56:05Blood Pressure : / mmHGVent. Rate : 058 BPM Atrial Rate : 058 BPM P-R Int : 176 ms QRS Dur : 106 ms QT Int : 426 ms P-R-T Axes : 044 -24 080 degrees QTc Int : 418 ms Sinus bradycardiaOtherwise normal ECGNo previous ECGs availableConfirmed by JOLYNN KEYES ([id number]) on 02/13/2021 6:19:24 PM Referred By: Deb Lira Confirmed by:JOLYNN KEYES at 1819 PATIENT NAME: MARIA M THOMPSON .[id number] AVAvailable for patient uadvADKIEBNLVJHRKB7354-49-73Z91:19:47 [facility] 2019-11-19 09:16:00 [id number] wgANjpqjeXK7VHaKWFBtLFPTjp07I UecMCBEbE0+/mF34DA34fhfWKml/MMm8qW0279-57-40U72:1 6:00 [facility])Post Anesthesia EvaluationREPORT#:[id number] REPORT STATUS: SignedDATE:11/19/19 TIME:915 PATIENT: MARIA M THOMPSON UNIT #: [id number]#: [id number] ROOM/BED:: 67 AGE: 54 SEX: F ATTEND: Jose Luong [facility] AUTHOR: Mei Moreno MD * ALL edits or amendments must be made on the electronic/computer document * GeneralPost-op: post surgery rounds Post Anesthesia Evaluation Anes. changes from pre-op evalORM Surgeries: Surgery Date and Time: 11/19/2019 08 Primary Procedure: URETEROSCOPY WITH HOLMIUM LASER Secondary Procedures: LEFT URETERAL STENT INSERTION CYSTOSCOPY RETROGRADE PYELOGRAM Anesthetic: GETADate: 11/19/19Level of consciousness: patient awake, able to answer questionsNeurological assessment: Neuromuscular block: resolved as expectedVital signs:Last Documented: Result Date Time Pulse Ox 100 11/18 0810 B/P 137/88 11/18 909 O2 Delivery Room air 11/18 909 Pulse 62 11/18 0910 Resp 13 11/18 909 O2 Flow Rate 10.832200 11/18 0805 Temp 36.4 11/18 0855 Cardiovascular: CV system stable, vital signs stableRespiratory/Airway: respiratory system stable, maintains without supportPain: adequately controlled, pain med. administeredHydration: adequate, euvolemicTemp status: greater than 96.8F, normothermicPresence of N/V: noAnesthesia complications: noOther changes requiring f/u: noneConclusions: no apparent anes. issues, outpts eval prior DC home at 0917 [facility] #: [id number] OF REPORT CLClinical gwlw5314-11-33K88:16:00L.[id number] able for patient nryfKJVXTVTWLAQYHJ5482-74-39T67:17:38 [facility] 2019-11-19 08:50:00 [id number] whLqqJVD039eEga1zY3JjpPsNAahv w+SCrmRyegudzObE7M5evW8PRY57R0Z5lW8776-31-94C29:5 0:[id number] [facility] [id number] [place] [address] PATIENT NAME: MARIA M THOMPSON ADMIT DATE: 11/19/19ACCOUNT NO: [id number] ROOM NO: AGE: 54 REPORT TYPE: OPERATIVE REPORT SEX: F ADMITTING PHYSICIAN: ATTENDING PHYSICIAN: Jose Luong MD OPERATION DATE: 11/19/2019 PREOPERATIVE DIAGNOSIS: Left ureteral stone with hydroureteronephrosis. POSTOPERATIVE DIAGNOSIS: Left ureteral stone with hydroureteronephrosis. PROCEDURES:1. Cystourethroscopy.2. Left retrograde ureteropyelogram.3. Left ureteroscopy with laser lithotripsy.4. Placement of left ureteral stent 6 x 26. SURGEON: Jose Luong MD RECORDING STUDIO INTERN: ANESTHESIA: General. COMPLICATIONS: None. DISPOSITION: To recovery room in good condition. INDICATIONS: The patient is a 54-year-old female who presented to my officeyesterday with a mid left ureteral stone approximately 8 mm in size seen on CTscan from the ER, she was in pain. She had hydronephrosis down to the stone. She has been treated multiple times for recurrent urinary tract infections withantibiotics and she is on Coumadin. She thus presents for emergent ureteroscopywith laser lithotripsy. TECHNIQUE: After risks, benefits, and alternatives were explained and consentwas obtained and placed on the chart, the patient was taken to the operatingroom and placed supine on the operating table. After general anesthesia wasinduced, the patient was prepped and draped in a sterile manner, placed inlithotomy position and given intravenous antibiotics. A 21-Monegasque rigidcystourethroscope was placed in the patient's urethra into her bladder withoutdifficulty. The bladder was normal. No masses or lesions in the patient'sbladder. A 5-Monegasque open-ended catheter was placed in the patient's leftureteral orifice. Retrograde pyelogram was performed, which demonstrated alarge stone in the mid ureter with hydronephrosis. A wire was passed throughthe 5-Monegasque into the patient's kidney. A 5-Monegasque was removed and an 8/10dilator was used to dilate the ureteral orifice. Next, a short semi-rigidureteroscope was passed through the urethra into the patient's ureter without PATIENT NAME: MARIA M THOMPSON difficulty. The stone was visualized. It was fragmented in multiple fragmentsusing the holmium laser. All fragments were removed using stone basket. Oncethis was done, an 06/26/36 access sheath placed over the wire into the patient'sureter. Flexible ureteroscope was passed through the access sheath into thepatient's kidney. The kidney was inspected. There were no fragments that hadbeen passed up into the patient's kidney. The scope and access sheath wereremoved en bloc demonstrating no residual fragments in the patient's ureter andno evidence of iatrogenic injury and cystoscope was replaced, a 5-Monegasque wasreplaced in ureteral orifice. Retrograde pyelogram was performed, whichdemonstrated no extravasation, no residual fragments. The wire was passedthrough the 5-Monegasque in the patient's kidney, a 5-Monegasque was removed and 6 s18-Cjhqxq double-J ureteral stent was placed over the wire in the patient'skidney without difficulty under direct vision fluoroscopy. The wire was removedleaving a good coil in the patient's kidney and good coil in the patient'sbladder. String was left intact. The bladder was emptied. The patient wasawakened in the operating room, taken to recovery room awake, alert, in goodcondition. All needles and towel counts were correct at the end of the case. The patient tolerated the procedure well. There were no complications. Dictated By: Jose Luong MD WT: OP:LKELLIE/KASH.06/NTSDD: 11/19/2019 08:50:32DT: 11/19/2019 10:12:27Conf#: [id number]/DID#: [id number] Authenticated by Jose Loung On 12/04/2019 08:35:23 AM at 0835 PATIENT NAME: MARIA M THOMPSON mpzcfy0741-30-66C05:12:00L.[id number] lable for patient sqviGKOZOBMCFPRWTS5749-35-82Q45:36:02 [facility] 2019-11-19 08:45:00 EVwwueqerfx85010710I 34WMoGbSK8XukoYGyKfM5TjqyOcr1 FF7fvTaPmFhRd4FvtMAb8j/m7JlOGNPqQC2208-29-80F76:4 5:00 [facility] CenterBrief Op NoteREPORT#:[id number] REPORT STATUS: SignedDATE:11/19/19 TIME:0845 PATIENT: MARIA M THOMPSON UNIT #: [id number]#: [id number] ROOM/BED:: 67 AGE: 54 SEX: F ATTEND: Jose Luong MDADM AUTHOR: Jose Luong MD * ALL edits or amendments must be made on the electronic/computer document * Op/Inv Proc Note - BriefPre-procedure diagnosis:left ureteral stonePost-procedure diagnosis: same as pre procedure dxProcedures performed:left ureteroscopy with laser litho and stentPrimary Surgeon:lewisAssistant(s): noneFindings:stoneComplications: noneEstimated blood loss in ml's: noneSpecimens removed/altered: stone at 0846 RPT #: [id number] OF REPORT OPOperative byahzn3469-50-58M21:45:00L.[id number] ilable for patient evriHUTOETYXOYHCOA7239-76-01X22:46:27 [facility]"
[2023-11-07 16:26] LABS: PT Prothrombin Time 12.4 SECONDS (9.5-12.5); Protime INR 1.13
[2023-11-07 16:36] LABS: Albumin/Globulin Ratio 1.1 (1.1-1.8); Anion Gap 7.9 mEq/L (5.0-15.0); Bilirubin Direct 0.1 mg/dL (0-0.2); Bilirubin Indirect, Calculated 0.3 mg/dL (0.2-0.8); Bilirubin Total 0.4 mg/dL (0.2-1.0); Globulin 3.7 g/dL (2.3-3.5); Potassium 3.9 mEq/L (3.5-5.1); Protein, Total 7.7 g/dL (6.4-8.2); Thyroid Stimulating Hormone 0.705 uIU/mL (0.358-3.740)
[2023-11-07 16:43] LABS: Absolute Basophils 0.1 K/uL (0-0.5); Absolute Eosinophils 0.1 K/uL (0-0.5); Absolute Lymphocytes (CBC) 1.7 K/uL (0.7-4.9); Absolute Monocytes 0.4 K/uL (0.1-1.3); Absolute Neutrophil 2.9 K/uL (1.8-8.0); Basophils % 1.2 % (0-1.3); Eosinophils % 2.3 % (0-4.4); Hematocrit 26.2 % (36.0-45.0); Hemoglobin 8.1 g/dL (12.0-15.0); MCH 20.2 pg (27.0-35.0); MCHC 30.9 g/dL (32.0-36.0); MCV 65.5 fL (80-100); MPV 8.7 fL (7.6-11.3); Monocytes % 8.1 % (3.3-12.3); Neutrophils % 55.4 % (41.7-73.7); Platelets 240 thou/uL (152-406); Red Cell Distribution Width 17.9 % (12.1-15.2)
--- NOTE | 2023-11-07 16:50 | ER ---
[facility]'s [facility] Name[facility] Annika [facility] Age: 58 yrs Sex: Female : 1965 Arrival Date: 11/07/2023 Time: 14:35 Bed 12 Private MD: Juana Duff Diagnosis: Anemia, fatigue Presentation: 11/06 15:04 Chief complaint: Patient states: Fatigue, weakness, SOB with exertion. Last HGB 8.1, ll1 sent by Dr. Duff for evaluation. Coronavirus screen: Client denies travel out of the [place] in the last 14 days. At this time, the client does not indicate any symptoms associated with coronavirus-19. Ebola Screen: Patient denies travel to an Ebola-affected area in the 21 days before illness onset. Initial Sepsis Screen: Does the patient meet any 2 criteria? No. Patient's initial sepsis screen is negative. Does the patient have a suspected source of infection? No. Patient's initial sepsis screen is negative. Risk Assessment: Do you want to hurt yourself or someone else? Patient reports no desire to harm self or others. Onset of symptoms was September 28, 2023. 15:04 Method Of Arrival: Ambulatory ll1 15:04 Acuity: JUSTINE 3 ll1 Triage Assessment: 15:05 General: Appears uncomfortable, Behavior is calm, cooperative, appropriate for age. ll1 Pain: Complains of pain in joints Quality of pain is described as aching. Musculoskeletal: Circulation, motion, and sensation intact. Capillary refill < 3 seconds, Reports pain in joints. Historical: - Allergies: 14:59 Sulfa (Sulfonamide Antibiotics); ll1 - PMHx: 14:59 Atrial Fib; Hypertension; Tachycardia; Thyroid problem; ll1 - Immunization history:: Adult Immunizations up to date. - Social history:: Smoking status: Patient denies any tobacco usage or history of. Screenin:10 [facility] ED Fall Risk Assessment (Adult) History of falling in the last 3 months, tl4 including since admission No falls in past 3 months (0 pts) Confusion or Disorientation No (0 pts) Intoxicated or Sedated No (0 pts) Impaired Gait No (0 pts) Mobility Assist Device Used No (0 pt) Altered Elimination No (0 pt) Score/Fall Risk Level 0 - 2 = Low Risk Oriented to surroundings, Maintained a safe environment, Educated pt \T\ family on fall prevention, incl call for assistance when getting out of bed, Assessed \T\ reinforced patient's understanding of fall precautions, Hourly rounding (assess needs \T\ fall precautionary measures) done, Used ambulatory aids as needed (educated on \T\ assisted with), Used gait belt as appropriate. Abuse screen: Denies threats or abuse. Denies injuries from another. Nutritional screening: No deficits noted. Tuberculosis screening: No symptoms or risk factors identified. Assessment: 16:09 General: Appears in no apparent distress. Behavior is calm, cooperative. Pain: Denies tl4 pain. Neuro: Level of Consciousness is awake, alert, obeys commands, Oriented to person, place, time, situation, Moves all extremities. Gait is steady, Speech is normal, Facial symmetry appears normal. Vital Signs: 15:04 BP 141 / 82; Pulse 64; Resp 18; Temp 98.4; Pulse Ox 100% ; Weight 108.86 kg; Height 5 ll1 ft. 11 in. ; Pain 4/10; 16:57 BP 126 / 86; Pulse 58; Resp 18 S; Pulse Ox 100% on R/A; as6 15:04 Body Mass Index 33.47 (108.86 kg, 180.34 cm) ll1 15:04 Pain Scale: Adult ll1 ED Course: 14:39 Patient arrived in ED. mr 14:40 Artemio Paz MD is Attending Physician. sp3 14:59 Arm band placed on. ll1 15:02 Juana Duff is Private Physician. mr 15:05 Triage completed. ll1 15:35 Ashvin Guardado, ESTELA is Primary Nurse. tl4 16:07 Basic Metabolic Panel Sent. tl4 16:07 CBC with Diff Sent. tl4 16:07 LFT's Sent. tl4 16:07 PT-INR Sent. tl4 16:08 Inserted saline lock: 22 gauge in left antecubital area, using aseptic technique. Blood tl4 collected. 16:10 Patient has correct armband on for positive identification. Placed in gown. Bed in low tl4 position. Call light in reach. Side rails up X 1. Provided Education on: ED process. Client placed on continuous cardiac and pulse oximetry monitoring. NIBP monitoring applied. Door closed. Noise minimized. Lights dimmed. Moved to private room. Warm blanket given. 16:58 No provider procedures requiring assistance completed. IV discontinued, intact, as6 bleeding controlled, No redness/swelling at site. Pressure dressing applied. Administered Medications: No medications were administered Medication: 16:10 VIS not applicable for this client. tl4 Outcome: 16:50 Discharge ordered by . sp3 16:58 Discharged to home ambulatory, as6 16:58 Condition: stable 16:58 Discharge instructions given to patient, Instructed on discharge instructions, follow up and referral plans. Demonstrated understanding of instructions, follow-up care, 16:58 Patient left the ED. as6 Signatures: Sangeetha Brito, Reg Reg mr Gabe Arthur, RN RN ll1 Artemio Paz MD MD sp3 Bry Hall RN RN as6 Ashvin Guardado RN RN tl4
--- NOTE | 2023-11-07 16:50 | EDPHYS ---
Physician Documentation [facility] Name: Annika Thompson Age: 58 yrs Sex: Female : 1965 Arrival Date: 11/07/2023 Time: 14:35 Bed 12 Private MD: Juana Duff ED Physician Artemio Paz HPI: 11/06 16:47 This 58 yrs old Female presents to ER via Ambulatory with complaints of Abnormal Lab sp3 Results. 16:47 58-year-old female with a history of paroxysmal A-fib, hypertension, hypothyroidism sp3 presents ED with generalized fatigue. Patient's last hemoglobin was 8.1 and she had anemia secondary to severe hemorrhoids which she has since had banded. Due to her continued symptoms her PCP wanted to come into the ED for evaluation for potentially worsening anemia. Patient is having no bleeding currently. She also denies dark stools or bleeding anywhere else. On review of systems, she denies headache, fever, URI symptoms, shortness of breath, chest pain, back pain, abdominal pain, syncope, near syncope, or any other signs or symptoms on ROS at this time.. Historical: - Allergies: 14:59 Sulfa (Sulfonamide Antibiotics); ll1 - PMHx: 14:59 Atrial Fib; Hypertension; Tachycardia; Thyroid problem; ll1 - Immunization history:: Adult Immunizations up to date. - Social history:: Smoking status: Patient denies any tobacco usage or history of. ROS: 16:48 Constitutional: Negative for fever, chills, and weight loss, Eyes: Negative for injury, sp3 pain, redness, and discharge, ENT: Negative for injury, pain, and discharge, Neck: Negative for injury, pain, and swelling, Cardiovascular: Negative for chest pain, palpitations, and edema, Respiratory: Negative for shortness of breath, cough, wheezing, and pleuritic chest pain, Abdomen/GI: Negative for abdominal pain, nausea, vomiting, diarrhea, and constipation, Back: Negative for injury and pain, MS/Extremity: Negative for injury and deformity, Skin: Negative for injury, rash, and discoloration, Neuro: Negative for headache, weakness, numbness, tingling, and seizure, Exam: 16:48 Constitutional: This is a well developed, well nourished patient who is awake, alert, sp3 and in no acute distress. Head/Face: Normocephalic, atraumatic. Eyes: Pupils equal round and reactive to light, extra-ocular motions intact. Lids and lashes normal. Conjunctiva and sclera are non-icteric and not injected. Cornea within normal limits. Periorbital areas with no swelling, redness, or edema. Neck: Trachea midline, no thyromegaly or masses palpated, and no cervical lymphadenopathy. Supple, full range of motion without nuchal rigidity, or vertebral point tenderness. No Meningismus. Chest/axilla: Normal chest wall appearance and motion. Nontender with no deformity. No lesions are appreciated. Cardiovascular: Regular rate and rhythm with a normal S1 and S2. No gallops, murmurs, or rubs. Normal PMI, no JVD. No pulse deficits. Respiratory: Lungs have equal breath sounds bilaterally, clear to auscultation and percussion. No rales, rhonchi or wheezes noted. No increased work of breathing, no retractions or nasal flaring. Abdomen/GI: Soft, non-tender, with normal bowel sounds. No distension or tympany. No guarding or rebound. No evidence of tenderness throughout. Skin: Warm, dry with normal turgor. Normal color with no rashes, no lesions, and no evidence of cellulitis. MS/ Extremity: Pulses equal, no cyanosis. Neurovascular intact. Full, normal range of motion. Neuro: Awake and alert, GCS 15, oriented to person, place, time, and situation. Cranial nerves II-XII grossly intact. Motor strength 5/5 in all extremities. Sensory grossly intact. Cerebellar exam normal. Normal gait. Psych: Awake, alert, with orientation to person, place and time. Behavior, mood, and affect are within normal limits. Vital Signs: 15:04 BP 141 / 82; Pulse 64; Resp 18; Temp 98.4; Pulse Ox 100% ; Weight 108.86 kg; Height 5 ll1 ft. 11 in. ; Pain 4/10; 16:57 BP 126 / 86; Pulse 58; Resp 18 S; Pulse Ox 100% on R/A; as6 15:04 Body Mass Index 33.47 (108.86 kg, 180.34 cm) ll1 15:04 Pain Scale: Adult ll1 MDM: 15:13 Patient medically screened. sp3 16:48 Data reviewed: vital signs, nurses notes, lab test result(s). ED course: 58-year-old sp3 female with PMH above with history of anemia now here for repeat blood draw to assess hemoglobin. Patient has fatigue is main symptom. Differential diagnosis includes anemia, electrolyte abnormality, hypothyroidism, among others. I am not highly suspicious for acute coronary syndrome, PE, pneumonia, sepsis, shock. Repeat hemoglobin is 8.1 and TSH is normal. Patient is in no acute distress and vital signs are normal. We will safely discharge patient home with PCP follow-up at this time.. 11/06 15:13 Order name: Basic Metabolic Panel; Complete Time: 16:44 sp3 11/06 15:13 Order name: CBC with Diff sp3 11/06 15:13 Order name: LFT's; Complete Time: 16:44 sp3 11/06 15:13 Order name: PT-INR; Complete Time: 16:34 sp3 11/06 15:13 Order name: TSH; Complete Time: 16:44 sp3 11/06 15:13 Order name: IV Saline Lock; Complete Time: 16:06 sp3 11/06 15:13 Order name: Labs collected and sent; Complete Time: 16:07 sp3 Administered Medications: No medications were administered Disposition Summary: 11/07/23 16:50 Discharge Ordered Notes: Location: Home sp3 Condition: Stable sp3 Diagnosis - Anemia, fatigue sp3 Followup: sp3 - With: Private Physician - When: Upon discharge from the Emergency Department - Reason: Continuance of care Discharge Instructions: - Discharge Summary Sheet sp3 - Anemia sp3 Forms: - Medication Reconciliation Form sp3 - Thank You Letter sp3 - Antibiotic Education sp3 - Prescription Opioid Use sp3 - Patient Portal Instructions sp3 - Leadership Thank You Letter sp3 Signatures: Dispatcher [employer] Gabe Flores RN RN ll1 Artemio Paz MD MD sp3
[2023-11-07 17:34] VITALS: BP 126/86; TEMP 98.4; O2SAT 100
[2023-11-07 18:20] LABS: Anisocytosis 1+; Blood Morphology Comment NOTED (NOT SEEN); Platelet Estimate ADEQ; White Blood Cell Scan OK (OK)
[2023-11-07 18:21] LABS: Microcytosis 1+; Ovalocytes 1+; Poikilocytosis 1+; Polychromasia SLIGHT
== END ==
LOC: ER 14:35
DX: D64.9 Anemia, unspecified (principal); Z88.2 Allergy status to sulfonamides
CPT/HCPCS: 36415; 80048; 80076; 84443; 85025; 85610